=== PATIENT | female | born 1930 | race Caucasian/White ===

== ENCOUNTER → 2016-08-04 10:30 | Outpatient (CLI) | payer MEDICARE, OTHER ==
[2016-06-29 12:41] VITALS: BMI 28.3
[~2016-08-04 10:30] MED LIST: ACTONEL150 MG; ATROVENT 0.03%30 ML NS; CARDIZEM CD240 MG PO; CARDIZEM CD360 MG; ELIQUIS2.5 MG PO; HYDROCODON-ACE1 EAC7 PO; LANTUS INSULIN10 ML SC; LEVAQUIN250 MG PO; LEVOTHYROXINE100 MCG; LIPITOR80 MG PO; NEURONTIN 300300 MG PO; NEURONTIN600 MG; NORMODYNE / TR100 MG PO; NORVASC2.5 MG PO; NORVASC5 MG PO; NOVOLOG100 U/M1 SC; OS-CAL500 MG PO; OYSCO 500+D TAB1 TAB PO; PEPCID20 MG PO; SYNTHROID100 MCG PO; TRANDATE100 MG PO
== END | disposition home or self-care (01) ==
LOC: D.US 10:30
DX: N39.0 Urinary tract infection, site not specified (principal)

== ENCOUNTER 2016-08-06 12:25 | Emergency (ER) | payer MEDICARE, OTHER ==
[2016-06-29 12:41] VITALS: BMI 28.3
[2016-08-06 12:56] LABS: BASOPHILS 0.5 % (0.0-2.0); EOSINOPHILS 2.7 % (0-7); HEMATOCRIT 33.1 % (36.0-48.0); HEMOGLOBIN 10.3 g/dL (12-16); IMMATURE GRANULOCYTES 0.1 % (0-5); LYMPHOCYTES 26.9 % (15-50); MCHC 31.1 g/dL (31.0-37.0); MCV 99.7 fL (80.0-100.0); MEAN PLATELET VOLUME 10.1 fL (7.4-10.4); MONOCYTES 9.6 % (2-11); NEUTROPHILS 60.2 % (40-80); PLATELET COUNT 201 10x3/uL (130-400); RBC 3.32 10x6/uL (4.00-5.40); WBC 7.4 10x3/uL (4.8-10.8)
[2016-08-06 13:07] LABS: ALBUMIN 3.3 g/dL (3.4-5.0); ANION GAP 16.1 mmol/L (8-16); BILIRUBIN - TOTAL 0.6 mg/dL (0.2-1.3); CALCIUM 8.7 mg/dL (8.5-10.1); CARBON DIOXIDE 27.5 mmol/L (21.0-32.0); CREATININE - SERUM 5.3 mg/dL (0.6-1.3); POTASSIUM - SERUM 3.6 mmol/L (3.5-5.1); PROTEIN - SERUM 6.8 g/dL (6.4-8.2)
== END 2016-08-06 13:40 | disposition home or self-care (01) ==
LOC: D.ER 12:25
PROVIDERS: Emergency Medicine
DX: R42 Dizziness and giddiness (principal); R55 Syncope and collapse; E11.9 Type 2 diabetes mellitus without complications; I10 Essential (primary) hypertension

== ENCOUNTER 2016-11-16 17:38 | Inpatient (IN) | payer MEDICARE, OTHER ==
[~2016-11-16] VITALS: Ht 160 cm; Wt 58.5 kg
[2016-11-16 19:35] LABS: BASOPHILS 0.2 % (0-2); EOSINOPHILS 0.1 % (0-7); HEMATOCRIT 28.3 % (36.0-48.0); HEMOGLOBIN 9.3 g/dL (12-16); IMMATURE GRANULOCYTES 0.1 % (0-5); LYMPHOCYTES 14.2 % (15-50); MCH 30.3 pg (26.0-34.0); MCHC 32.9 g/dL (31.0-37.0); MCV 92.2 fL (80.0-100.0); MEAN PLATELET VOLUME 9.5 fL (7.4-10.4); MONOCYTES 6.9 % (2-11); NEUTROPHILS 78.5 % (40-80); PLATELET COUNT 171 10x3/uL (130-400); RBC 3.07 10x6/uL (4.00-5.40); RDW 14.1 % (11.5-14.5); WBC 9.1 10x3/uL (4.8-10.8)
[2016-11-16 19:56] LABS: ALBUMIN 3.4 g/dL (3.4-5.0); ANION GAP 14.1 mmol/L (8-16); BILIRUBIN - TOTAL 1.01 mg/dL (0.2-1.3); CARBON DIOXIDE 30.8 mmol/L (21.0-32.0); CREATININE - SERUM 3.5 mg/dL (0.6-1.3); POTASSIUM - SERUM 3.9 mmol/L (3.5-5.1); PROTEIN - SERUM 7.1 g/dL (6.4-8.2)
[2016-11-16 20:09] LABS: APPEARANCE CLEAR (CLEAR); BILIRUBIN NEGATIVE (NEGATIVE); COLOR YELLOW (YELLOW); GLUCOSE NEGATIVE (NEGATIVE); KETONE NEGATIVE (NEGATIVE); LEUKOCYTE ESTERASE NEGATIVE (NEGATIVE); NITRITE NEGATIVE (NEGATIVE); PROTEIN NEGATIVE (NEGATIVE); SPECIFIC GRAVITY 1.015 (1.005-1.020); UROBILINOGEN NORMAL (NORMAL)
[2016-11-16 21:10] LABS: APTT 27.6 SECONDS (22.8-39.4); INR 1.04 (0.85-1.17); PROTIME 13.4 SECONDS (11.6-15.0)
[2016-11-16 23:42] VITALS: BP 126/48; BMI 23.0
--- NOTE | 2016-11-17 00:46 | NUR ---
PATIENT IS RESTING IN BED AND DENIES NEEDS AT THIS TIME. BED IN LOWEST POSITION, CALL LIGHT WITHIN REACH, AND KAILEY ALARM IS ON AND FUNCTIONING PROPERLY. ENCOURAGED THE PATIENT TO CALL IF SHE HAS FURTHER NEEDS.
[2016-11-17 04:00] VITALS: BP 117/41
--- NOTE | 2016-11-17 08:00 | NUR ---
AWAKE AND ALERT AT THIS TIME. DENIES PAIN. IV TO RIGHT FOREARM PATENT. CALL LIGHT IN REACH AND KAILEY MAT ALARM IN USE. WILL CONTINUE WITH PLAN OF CARE.
[2016-11-17 08:25] VITALS: BP 118/39
[2016-11-17 10:20] LABS: BASOPHILS 0.3 % (0-2); EOSINOPHILS 1.8 % (0-7); HEMATOCRIT 25.2 % (36.0-48.0); HEMOGLOBIN 8.2 g/dL (12-16); IMMATURE GRANULOCYTES 0.1 % (0-5); LYMPHOCYTES 23.3 % (15-50); MCH 30.5 pg (26.0-34.0); MCHC 32.5 g/dL (31.0-37.0); MCV 93.7 fL (80.0-100.0); MEAN PLATELET VOLUME 9.3 fL (7.4-10.4); MONOCYTES 10.5 % (2-11); PLATELET COUNT 147 10x3/uL (130-400); RBC 2.69 10x6/uL (4.00-5.40); RDW 14.3 % (11.5-14.5); WBC 7.4 10x3/uL (4.8-10.8)
[2016-11-17 10:36] LABS: ALBUMIN 2.9 g/dL (3.4-5.0); ANION GAP 10.3 mmol/L (8-16); CALCIUM 8.5 mg/dL (8.5-10.1); CARBON DIOXIDE 31.5 mmol/L (21.0-32.0); CREATININE - SERUM 4.2 mg/dL (0.6-1.3); POTASSIUM - SERUM 3.8 mmol/L (3.5-5.1); PROTEIN - SERUM 5.8 g/dL (6.4-8.2)
--- NOTE | 2016-11-17 11:46 | NUR ---
SCHEDULED MEDICATIONS ADMINISTERED AT THIS TIME. PT DENIES PAIN. CALL LIGHT IN REACH, WILL CONTINUE WITH PLAN OF CARE.
--- NOTE | 2016-11-17 12:29 | NUR ---
BLOOD SUGAR 211. PT TREATED WITH 4 UNITS OF HUMALOG PER SLIDING SCALE.
[2016-11-17 12:45] VITALS: BP 128/46
[2016-11-17 13:56] VITALS: Ht 160 cm; Wt 58.5 kg
--- NOTE | 2016-11-17 15:52 | NUR ---
Patient Name: THUAN TAPIA Admission Status: ER Accout number: [id number] Admission Date: 11-16-2016 : 1932 Admission Diagnosis: Attending: RAINE Current LOS: 1 Anticipated DC Date: 11-20-2016 Planned Disposition: Home Primary Insurance: MEDICARE A & B Discharge Planning Comments: CM MET WITH PATIENT REGARDING D/C NEEDS AND PLANS. PATIENT STATED SHE LIVES ALONE AND HER NEPHEW (ANITA) LIVES NEXT DOOR. PATIENT STATED SHE HAS NO STEPS OR STAIRS AT HER HOME. PATIENT STATED SHE IS INDEPENDENT WITH HER CARE AND HAS A WALKER, SHOWER CHAIR, AND BS COMMODE AT HOME. PATIENTS PCP IS DR. JIM HOBBS AND PHARMACY IS [facility]. PATIENT STATED SHE DOES NOT WANT HOME HEALTH AT THIS TIME. CM WILL CONTINUE TO FOLLOW PATIENT WITH D/C NEEDS AND PLANS. PCP DR. JIM HOBBS [facility] [phone] ANITA LOVELACE (NEPHEW) Yarn Worker: Vickie Moralez Is the patient Alert and Oriented? Yes 0 * How many steps to enter\exit or inside your home? 0 0 * PCP DR. JIM HOBBS 0 * Pharmacy [facility] 0 * Preadmission Environment Home Alone 0 * ADLs Independent 0 * Equipment Bedside Commode Shower Chair Walker 0 * List name and contact numbers for known caregivers / representatives who currently or will assist patient after discharge: GABE LOVELACE (NEPHEW) 0 * Community resources currently utilized None 0 * Additional services required to return to the preadmission environment? Yes 0 * Can the patient safely return to the preadmission environment? Yes 0 * Has this patient been hospitalized within the prior 30 days at any hospital? No 0 Grand Total: 0
--- NOTE | 2016-11-17 16:08 | NUR ---
Rehab Note- Acute Rehab Prescreen order received. Awaiting PT eval at this time. Have spoken with NAYAN Johnston- the patient lives alone and tripped over her dog causing the fall with fractured shoulder. Will follow the patient at this time. Thank you for this referral! Laura Tavarez RN Clinical Liaison, [facility] Rehab/[place]
[2016-11-17 16:41] VITALS: BP 109/39
[2016-11-17 19:00] VITALS: BP 122/43
--- NOTE | 2016-11-17 20:03 | NUR ---
PATIENT RESTING WITH EYES CLOSED. NO VISIBLE SIGNS OF DISTRESS. BED IN LOWEST POSITION AND CALL LIGHT WITHIN REACH.
--- NOTE | 2016-11-17 20:46 | NUR ---
PATIENT RESTING IN BED WITH SLING ON AND DENIES NEEDS AT THIS TIME. BED IN LOWEST POSITION, CALL LIGHT WITHIN REACH, AND KAILEY ALARM ON. ENCOURAGED THE PATIENT TO CALL IF SHE HAS FURTHER NEEDS.
[2016-11-18 04:00] VITALS: BP 142/49
[2016-11-18 06:14] LABS: BASOPHILS 0.3 % (0-2); EOSINOPHILS 3.1 % (0-7); HEMATOCRIT 25.6 % (36.0-48.0); HEMOGLOBIN 8.2 g/dL (12-16); IMMATURE GRANULOCYTES 0.3 % (0-5); LYMPHOCYTES 25.5 % (15-50); MCH 30.4 pg (26.0-34.0); MCV 94.8 fL (80.0-100.0); MEAN PLATELET VOLUME 10.4 fL (7.4-10.4); MONOCYTES 8.4 % (2-11); NEUTROPHILS 62.4 % (40-80); PLATELET COUNT 176 10x3/uL (130-400); RDW 14.4 % (11.5-14.5)
[2016-11-18 06:22] LABS: WBC 9.3 10x3/uL (4.8-10.8)
--- NOTE | 2016-11-18 06:38 | NUR ---
GAVE PATIENT ORANGE JUICE FOR BLOOD SUGAR OF 62.
[2016-11-18 06:41] LABS: ALBUMIN 2.8 g/dL (3.4-5.0); ANION GAP 8.2 mmol/L (8-16); BILIRUBIN - TOTAL 0.83 mg/dL (0.2-1.3); CALCIUM 8.9 mg/dL (8.5-10.1); CARBON DIOXIDE 33.3 mmol/L (21.0-32.0); POTASSIUM - SERUM 3.5 mmol/L (3.5-5.1)
[2016-11-18 06:46] LABS: CREATININE - SERUM 5.7 mg/dL (0.6-1.3)
--- NOTE | 2016-11-18 07:27 | NUR ---
RECEIVING BED BATH AT THIS TIME. LEF ARM REMAINS IN SLING. LEFT AV FISTULA WITH GOOD BRUIT AND THRILL PRESENT. IV TO RIGHT FOREARM SALINE LOCKED AND PATENT. SCD'S OFF AND SKIN TO BLE WNL. KAILEY MAT ALARM IN USE FOR FALL PRECAUTIONS. CALL LIGHT IN REACH, WILL CONTINUE WITH PLAN OF CARE.
[2016-11-18 08:04] VITALS: BP 151/54
--- NOTE | 2016-11-18 09:25 | NUR ---
IV access-20 gauge inserted in right hand for access. Terra Eden RN
[2016-11-18 12:01] VITALS: BP 131/51
[2016-11-18 15:35] VITALS: BP 152/52
--- NOTE | 2016-11-18 18:50 | NUR ---
TAKEN TO DIALYSIS AT THIS TIME.
--- NOTE | 2016-11-18 22:10 | NUR ---
PATIENT RETURNS TO ROOM FROM DIALYSIS. VS TAKEN SLING TO LEFT ARM DRESSING AND BRUISE TO LEFT SHOULDER AND ARM. PT STATES BROKE UPPER ARM FROM A FALL AT HOME. RT FOREARM SALINE LOCK NOTED RESERVING LEFT ARM FISTULA NOTED WITH STRONG THRILL.O2 ON 2 L/M PER NC. FSBS-197. FD2 UNITS HUMALOG INSULIN GIVEN SUBC PER S/S.
[2016-11-19] VITALS: BP 99/52
--- NOTE | 2016-11-19 | NUR ---
NPO AT THIS TIME FOR SURGERY IN AM.KAILEY BED ALARM MAT ON. SR UP X3 CALL LIGHT WITHIN REACH.
--- NOTE | 2016-11-19 02:02 | NUR ---
PERIODS OF CONFUSION AT TIMES PT THINKS SHE NEEDS TO GO TO HER DESK. INFORMED PATIENT TIME OF DAY AND PLACE. PATIENT THINKS IT IS DAYTIME.
--- NOTE | 2016-11-19 02:03 | NUR ---
EYES CLOSED RESPIRATIONS WITH EASE AND UNLABORED.
--- NOTE | 2016-11-19 03:32 | NUR ---
C/O PAIN IN FX AREA SITE RATES PAIN LEVEL #8. BUPRENEX 0.1MG IVP GIVEN FOR PAIN CONTROL.
[2016-11-19 04:00] VITALS: BP 132/55
[2016-11-19 05:34] LABS: BASOPHILS 0.2 % (0-2); HEMOGLOBIN 8.1 g/dL (12-16); IMMATURE GRANULOCYTES 0.3 % (0-5); MCH 30.1 pg (26.0-34.0); MCHC 32.4 g/dL (31.0-37.0); MCV 92.9 fL (80.0-100.0); MEAN PLATELET VOLUME 10.2 fL (7.4-10.4); MONOCYTES 8.7 % (2-11); NEUTROPHILS 65.8 % (40-80); PLATELET COUNT 183 10x3/uL (130-400); RBC 2.69 10x6/uL (4.00-5.40); RDW 14.1 % (11.5-14.5); WBC 9.6 10x3/uL (4.8-10.8)
[2016-11-19 06:11] LABS: ALBUMIN 2.7 g/dL (3.4-5.0); ANION GAP 8.3 mmol/L (8-16); BILIRUBIN - TOTAL 0.59 mg/dL (0.2-1.3); CARBON DIOXIDE 33.3 mmol/L (21.0-32.0); POTASSIUM - SERUM 3.6 mmol/L (3.5-5.1)
[2016-11-19 06:21] LABS: CREATININE - SERUM 4.2 mg/dL (0.6-1.3)
--- NOTE | 2016-11-19 06:37 | NUR ---
GLUCOSE FROM WHL=089. NO COVERAGE NEEDED.
--- NOTE | 2016-11-19 07:25 | NUR ---
PATIENT RECEIVED ALERT IN LOW RICHARDSON POSITION. RESPIRATIONS EVEN AND UNLABORED. SIDE RAILS UP X2. BED IN LOW POSITION. CALL LIGHT IN REACH. KAILEY ALARM ON.
[2016-11-19 07:58] VITALS: BP 111/58
--- NOTE | 2016-11-19 08:40 | NUR ---
PATIENT ALERT IN BED RESTING QUIETLY. RESPIRATIONS EVEN AND UNLABORED. SCHEDULED MEDICATION ADMINISTERED. SIDE RAILS UP X3. BED IN LOW POSITION. CALL LIGHT IN REACH. KAILEY ALARM ON.
--- NOTE | 2016-11-19 11:18 | NUR ---
PATIENT RESTING QUIETLY WITH EYES CLOSED. RESPIRATIONS EVEN AND UNLABORED. WAKES EASY. ACCU CHECK 119. NO INSULIN PER SLIDING SCALE. SIDE RAILS UP X3. BED IN LOW POSITION. CALL LIGHT IN REACH.
[2016-11-19 12:34] VITALS: BP 122/60
--- NOTE | 2016-11-19 14:45 | NUR ---
PRE PROCEDURE MEDICATION ADMINISTERED WITH SIP OF WATER. WELL TOLERATED.
--- NOTE | 2016-11-19 16:00 | NUR ---
PATIENT OFF FLOOR TO SURGERY VIA BED.
[2016-11-19 16:03] VITALS: BP 146/53
--- NOTE | 2016-11-19 19:00 | NUR ---
BEDSIDE REPORT RECEIVED. PT JUST RETURNING FROM SURGERY. VITALS STABLE. DRESSING ON LEFT ARM CLEAN AND DRY. SLING IN USE ON LEFT ARM. STARTED IV FLUIDS PER ORDER.
[2016-11-19 19:21] VITALS: BP 159/64
--- NOTE | 2016-11-19 21:45 | NUR ---
HS MEDICATIONS GIVEN. WILL CONTINUE TO MONITOR FOR NEEDS.
--- NOTE | 2016-11-19 22:00 | NUR ---
PLACED ICE PACK ON LEFT ARM PER ORDER.
--- NOTE | 2016-11-20 00:08 | NUR ---
ASSISTED PT TO USE BEDPAN...URINATED APPROX 50 ML YELLOW URINE.
[2016-11-20 04:00] VITALS: BP 150/58
[2016-11-20 06:31] LABS: BASOPHILS 0.2 % (0-2); EOSINOPHILS 2.4 % (0-7); HEMATOCRIT 24.5 % (36.0-48.0); IMMATURE GRANULOCYTES 0.2 % (0-5); LYMPHOCYTES 14.6 % (15-50); MCH 30.3 pg (26.0-34.0); MCHC 32.7 g/dL (31.0-37.0); MCV 92.8 fL (80.0-100.0); MEAN PLATELET VOLUME 10.3 fL (7.4-10.4); MONOCYTES 10.3 % (2-11); NEUTROPHILS 72.3 % (40-80); PLATELET COUNT 198 10x3/uL (130-400); RBC 2.64 10x6/uL (4.00-5.40); RDW 14.4 % (11.5-14.5); WBC 8.9 10x3/uL (4.8-10.8)
[2016-11-20 07:03] LABS: ALBUMIN 2.6 g/dL (3.4-5.0); BILIRUBIN - TOTAL 0.7 mg/dL (0.2-1.3); CARBON DIOXIDE 26.8 mmol/L (21.0-32.0); CREATININE - SERUM 4.9 mg/dL (0.6-1.3); POTASSIUM - SERUM 3.8 mmol/L (3.5-5.1); PROTEIN - SERUM 5.2 g/dL (6.4-8.2)
--- NOTE | 2016-11-20 07:20 | NUR ---
PATIENT RECEIVED ALERT IN BED. NO SIGNS OF DISTRESS NOTED. REPOSITIONED FOR COMFORT. SIDE RAILS UP X3. BED IN LOW POSITION. CALL LIGHT IN REACH. KAILEY ALARM ON.
[2016-11-20 07:50] VITALS: BP 153/56
--- NOTE | 2016-11-20 08:19 | NUR ---
PATIENT INCONTINENT OF URINE. LINEN CHANGE COMPLETE. REPOSITIONED IN BED FOR COMFORT. SCHEDULED MEDICATION ADMINISTERED. SIDE RAILS UP X3. BED IN LOW POSITION. CALL LIGHT IN REACH. KAILEY ALARM ON.
--- NOTE | 2016-11-20 11:04 | NUR ---
ACCU CHECK 209. INSULIN PER SLIDING SCALE. DENIES NEEDS. SIDE RAILS UP X3. BED IN LOW POSITION. CALL LIGHT IN REACH. KAILEY ALARM ON.
--- NOTE | 2016-11-20 11:39 | OP ---
PATIENT NAME: THUAN TAPIA MEDICAL RECORD: [id number] :32 LOCATION:[id number] ADMISSION DATE:11/16/16 SURGEON: MANDEEP LANE MD DATE OF OPERATION: 11/19/2016 Orthopedic Surgery Operative Note PREOPERATIVE DIAGNOSIS: Comminuted proximal humerus fracture. POSTOPERATIVE DIAGNOSIS: Comminuted proximal humerus fracture. PROCEDURE: Open reduction internal fixation of comminuted proximal humerus fracture. SURGEON: Mandeep Lane MD. ANESTHESIA: General. INTRAOPERATIVE COMPLICATIONS: None. SUMMARY OF PATHOLOGIC FINDINGS: Consistent with the preoperative diagnosis. The patient had actually somewhat of a valgus displacement with a fracture into the tuberosities. OPERATIVE SUMMARY IN DETAIL: After obtaining the appropriate preoperative orthopedic surgery consent as well as anesthetic consultation, evaluation, and clearance, the patient was brought to the operating room and placed on the operating table in supine position. After general laryngeal mask was administered, the patient's left upper extremity and shoulder were then prepped and draped in a routine sterile fashion. This is all over the left shoulder. Care was taken to avoid the patient's shunt. The arm was held in Trimano arm holding device. A deltopectoral incision was created. The patient had a very large cephalic vein, which was protected throughout the case and not violated. Deltoid was retracted over the broken humeral head and the conjoined tendon was gently retracted medially. A reduction maneuver was performed under fluoroscopic evaluation and the Sha VariAx plate was utilized. Serial and sequential drill and fill fashion using combination of both compression, cancellous, cortical, and locking screws. The reduction resulted in excellent anatomic restorationism; however, the posterior aspect of the greater tuberosity was a little unstable. Therefore, it was tied in a [id number] fashion through the superior pin holes in the plate using FiberWire as was the anterior aspect of the supraspinatus tendon for extra added stability. The wound was copiously irrigated and closed with #1 Vicryl followed by skin maximo. Sterile dressings were applied. The patient was awakened and taken to recovery room in stable condition. All final needle and sponge counts were correct. TRANSINT:[id number] Voice Confirmation ID: [id number] DOCUMENT ID: [id number] OPERATIVE REPORT [id number] THUAN TAPIA MD, MANDEEP KONG at 1139 CC: [id number] DICTATION DATE: 11/19/16 1851 BLUEPRINT ENGINEER: 11/20/16 0154 ADM IN [facility] [address] [id number]
--- NOTE | 2016-11-20 12:02 | NUR ---
CM REC. CALL FROM [facility] ([facility]) / SHE STATED PATIENT WILL BE ADMITTED WEDNESDAY. PATIENT AWARE
[2016-11-20 12:10] VITALS: BP 140/50
--- NOTE | 2016-11-20 13:55 | NUR ---
PATIENT REPOSITONED IN BED. INCONTINENT OF URINE. PARTIAL LINEN CHANGE COMPLETE. IV TO RIGHT HAND PATENT. NO REDNESS OR INFLAMMATION NOTED. IV ABX INITIATED PER ORDER. SIDE RAILS UP X3. BED IN LOW POSITION. CALL LIGHT IN REACH. KAILEY ALARM ON.
--- NOTE | 2016-11-20 13:56 | NUR ---
NUTRITION MONITORING & EVAL CHART REVIEWED. PT CURRENTLY SLEEPING. 75 TO 100% INTAKE RECENT MEALS. RD FOLLOWING
--- NOTE | 2016-11-20 15:15 | NUR ---
PATIENT TRANSFERRED OFF FLOOR TO DIALYSIS VIA BED
--- NOTE | 2016-11-20 15:17 | NUR ---
Patient meets criteria for inpatient criteria and has agreed to participate in the program so she can regain her strength and return home at her PLOF. She will be admitted Wednesday on POD #3. The CM and patient have been made aware. Minoo Skelton RN Clinical Liaison, Rehab
--- NOTE | 2016-11-20 16:47 | NUR ---
DIALYSIS COORDINATOR: PATHWAYS: [facility] Wed/Wed/Wed @ 10:15am. Medical records forwarded to home unit. SOPHIE LEON
--- NOTE | 2016-11-20 18:20 | NUR ---
PATIENT BACK TO ROOM FROM DIALYSIS VIA BED.
--- NOTE | 2016-11-20 19:26 | NUR ---
ASSISTED PATIENT BACK TO BED FROM BATHROOM WITH DORIAN DYKES. ALEX C/O 5/10 PAIN IN HER LEFT SHOULDER. PATIENT IS RESTING IN BED AND DENIES OTHER NEEDS AT THIS TIME. BED IN LOWEST POSITION, CALL LIGHT WITHIN REACH, AND BED ALARM ON. ENCOURAGED THE PATIENT TO CALL IF SHE HAS FURTHER NEEDS.
[2016-11-20 20:00] VITALS: BP 160/70
--- NOTE | 2016-11-20 20:24 | NUR ---
PATIENT RESTING IN BED WITH NO SIGNS OF DISTRESS AND DENIES NEEDS AT THIS TIME. CHECKED PATIENT'S BLOOD GLUCOSE, RESULTS 223. NOTIFIED PORSHA ESTRADA OF RESULTS. BED IN LOWEST POSITION AND CALL LIGHT WITHIN REACH. ENCOURAGED THE PATIENT TO CALL IF SHE HAS NEEDS.
[2016-11-21] VITALS: BP 132/47
--- NOTE | 2016-11-21 00:20 | NUR ---
20 PIV D/C WITH CATH INTACT. NEW 20G PIV INITIATED IN RIGHT FOREARM AND SL AFTER IV ABX. NO NEEDS NOTED AT THIS TIME.
[2016-11-21 04:00] VITALS: BP 136/55
[2016-11-21 05:12] LABS: BASOPHILS 0.2 % (0-2); EOSINOPHILS 2.1 % (0-7); IMMATURE GRANULOCYTES 0.2 % (0-5); LYMPHOCYTES 22.5 % (15-50); MCH 30.3 pg (26.0-34.0); MEAN PLATELET VOLUME 9.8 fL (7.4-10.4); MONOCYTES 11.6 % (2-11); NEUTROPHILS 63.4 % (40-80); PLATELET COUNT 173 10x3/uL (130-400); RDW 15.3 % (11.5-14.5); WBC 8.5 10x3/uL (4.8-10.8)
[2016-11-21 05:14] LABS: HEMATOCRIT 33.2 % (36.0-48.0); HEMOGLOBIN 11.3 g/dL (12-16); RBC 3.73 10x6/uL (4.00-5.40)
[2016-11-21 05:36] LABS: ALBUMIN 2.5 g/dL (3.4-5.0); BILIRUBIN - TOTAL 0.8 mg/dL (0.2-1.3); CALCIUM 8.5 mg/dL (8.5-10.1); CREATININE - SERUM 3.8 mg/dL (0.6-1.3); PROTEIN - SERUM 5.8 g/dL (6.4-8.2)
--- NOTE | 2016-11-21 07:10 | NUR ---
REPORT RECEIVED FROM BARBED WIRE MACHINE OPERATOR NURSE. CALL LIGHT IN REACH.
--- NOTE | 2016-11-21 09:42 | NUR ---
ASSESSMENT COMPLETED. AM MEDS ADMINISTERED. DENIES PAIN. ALARM ON. CALL LIGHT IN REACH. WILL CONTINUE WITH PLAN OF CARE.
[2016-11-21 09:55] VITALS: BP 133/61
--- NOTE | 2016-11-21 11:58 | NUR ---
ASSISTED TO BR PER PORSHA DYKES.
--- NOTE | 2016-11-21 12:05 | NUR ---
HELPED PATIENT BACK TO BED.
--- NOTE | 2016-11-21 12:26 | NUR ---
FSBS 173 SO HUMALOG 2 UNITS SUBQ TO RIGHT ARM. STATES PAIN HAS DECREASED TO A 3.
[2016-11-21 12:31] VITALS: BP 143/58
--- NOTE | 2016-11-21 14:33 | NUR ---
ANCEF IVPB PER ORDER. CALL LIGHT IN REACH.
--- NOTE | 2016-11-21 14:33 | NUR ---
IS GIVEN TO PATIENT PER RT. RETURN DEMONSTRATION.
--- NOTE | 2016-11-21 14:40 | NUR ---
PT AOX4 RESP EVEN AND NONLABORED PT HERE LEFT HUMEROUS FRACTURE REPAIR. IV TO RIGHT FOREARM PATENT AND INTACT PT DENIES NEEDS AT THIS TIME SRX2 BED AT LOWEST SETTING CALL LIGHT WITHIN REACH WILL CONTINUE TO MONITOR
--- NOTE | 2016-11-21 16:41 | NUR ---
HUMALOG 2 UNITS SUBQ FOR FSBS OF 173.
[2016-11-21 16:50] VITALS: BP 141/62
--- NOTE | 2016-11-21 18:55 | NUR ---
DRSG TO LEFT SHOULDER CHANGED PER ORDER. ICE PACK REFILLED AND PLACED TO SHOULDER. NO CHANGES IN INITIAL ASSESSMENT. KAILEY MAT ALARM ON. STILL REFUSES SCDs. CALL LIGHT IN REACH. WILL CONTINUE WITH PLAN OF CARE.
[2016-11-21 19:00] VITALS: BP 147/53
--- NOTE | 2016-11-21 22:10 | NUR ---
PT C/O LEFT SHOULDER PAIN WAS MEDICATED WITH NORCO PER ORDERS FOR PAIN. WILL CONINUE TO OBSERVE FOR NEEDS. C/L IN REACH AT BEDSIDE.
[2016-11-22] VITALS: BP 137/53
--- NOTE | 2016-11-22 02:49 | NUR ---
PT IS ASLEEP WITH THE COVERS OVER HER HEAD AND O2 IN PLACE. SHE IS NOT IN ANY DISTRESS. THE BED IS LOW, RAILS UP X'S 2 WITH THE CALL LIGHT AT HAND.
[2016-11-22 04:00] VITALS: BP 156/50
--- NOTE | 2016-11-22 05:58 | NUR ---
PT WAS MEDICATED AT THIS TIME FOR C/O PAIN RATING 8/10 ON PAIN SCALE TO LEFT SHOULDER. C/L IN REACH AT BEDSIDE.
[2016-11-22 06:40] LABS: BASOPHILS 0.1 % (0-2); EOSINOPHILS 4.7 % (0-7); HEMATOCRIT 33.2 % (36.0-48.0); IMMATURE GRANULOCYTES 0.2 % (0-5); LYMPHOCYTES 17.8 % (15-50); MCH 30.1 pg (26.0-34.0); MCHC 33.1 g/dL (31.0-37.0); MCV 90.7 fL (80.0-100.0); MEAN PLATELET VOLUME 9.7 fL (7.4-10.4); NEUTROPHILS 68.2 % (40-80); PLATELET COUNT 188 10x3/uL (130-400); RBC 3.66 10x6/uL (4.00-5.40); RDW 15.4 % (11.5-14.5); WBC 8.7 10x3/uL (4.8-10.8)
[2016-11-22 07:00] VITALS: BP 130/52
--- NOTE | 2016-11-22 07:00 | NUR ---
REPORT RECEIVED FROM MARKETING GRAPHICS SPECIALIST NURSE. CALL LIGHT IN REACH.
[2016-11-22 07:12] LABS: ALBUMIN 2.5 g/dL (3.4-5.0); ANION GAP 12.1 mmol/L (8-16); BILIRUBIN - TOTAL 0.54 mg/dL (0.2-1.3); CALCIUM 9.1 mg/dL (8.5-10.1); CARBON DIOXIDE 29.4 mmol/L (21.0-32.0); PROTEIN - SERUM 6.1 g/dL (6.4-8.2)
[2016-11-22 07:13] LABS: CREATININE - SERUM 5.3 mg/dL (0.6-1.3); POTASSIUM - SERUM 3.5 mmol/L (3.5-5.1)
--- NOTE | 2016-11-22 07:40 | NUR ---
PATIENT IN MID RICHARDSON POSITION RESTING WITH EYES CLOSED. RESPIRATIONS EVEN AND UNLABORED. SIDE RAILS UP X2. BED IN LOW POSITION. CALL LIGHT IN REACH.
--- NOTE | 2016-11-22 08:00 | NUR ---
ASSESSMENT COMPELTED. REFUSES SCDs. KAILEY MAT ALARM IS ON. CALL LIGHT IN REACH. WILL CONITNUE WITH PLAN OF CARE.
[2016-11-22] MEDS ORDERED: PROCRIT/EP10000 UNIT SC (09:38)
--- NOTE | 2016-11-22 10:11 | NUR ---
DRSG TO LEFT SHOULDER CHANGED PER STUDENT NURSE.
--- NOTE | 2016-11-22 10:14 | CN ---
PATIENT NAME:THUAN TAPIA MEDICAL RECORD: [id number] : 32 LOCATION:[id number] ADMIT DATE: 11/16/16 ACCOUNT: [id number] CONSULTING PHYSICIAN: HAILEE LANZA MD REFERRING PHYSICIAN: MODE RAMÍREZ MD DATE OF CONSULTATION: 11/17/2016 HISTORY OF PRESENT ILLNESS: An 86-year-old lady with no known history of coronary artery disease. 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 She has a history of hypertension, dyslipidemia, admitted after accident with a dog, had a fractured left shoulder, we are asked to see preoperatively from a cardiovascular standpoint, she really has no symptomatology, no dyspnea on exertion, stays quite active today, would walk her dog, etc. without difficulty. Easily takes care of all her ADLs. PAST MEDICAL HISTORY: 1. History of diabetes mellitus. 2. Chronic renal insufficiency. 3. Hypertension. 4. Hyperlipidemia. 5. Hypothyroidism, on replacement. 6. Gastroesophageal reflux disease. MEDICATIONS: Typically include insulin per scale, Synthroid 100 mcg q. day, Pepcid 20 mg p.o. q. day, [place] 5/325 q. day, amlodipine 2.5 q. day, atorvastatin 80 q. day, Neurontin 300 q. day, and Eliquis 2.5 q. day. ALLERGIES: SULFA. SOCIAL HISTORY: Lives here in [place]. Bree is a nonsmoker. Easily takes care of all her ADLs. Does try to walk on a regular basis. PHYSICAL EXAMINATION: GENERAL: A pleasant female, in no acute distress, appears stated age. VITAL SIGNS: Blood pressure 128/46, pulse 71 and regular. HEENT: Normocephalic and atraumatic. NECK: No JVD or bruit. HEART: Regular. II/ systolic ejection murmur. LUNGS: Good air excursion. ABDOMEN: Soft and nontender. EXTREMITIES: Pulses 2+ with no edema. NEUROLOGIC: Grossly intact. IMPRESSION: No contraindication to planned procedure from a cardiovascular standpoint. LV function normal previously, suspect elevated BNP secondary to age and renal insufficiency. TRANSINT:[id number] Voice Confirmation ID: [id number] DOCUMENT ID: [id number] CONSULT REPORT [id number] TAPIATHUAN Juarez HAILEE LANZA MD at 1014 CC: [id number] DICTATION DATE: 11/17/16 1445 BOARD SAW RUNNER: 11/17/16 2228 ADM IN [facility] [address] [id number]
--- NOTE | 2016-11-22 11:19 | NUR ---
CAM PO WITH AM MEDS ADMINISTERED. FSBS 159 SO 2 UNITS HUMALOG SUBQ TO RIGHT ARM. CALL LIGHT IN REACH.
[2016-11-22 12:32] VITALS: BP 165/64
--- NOTE | 2016-11-22 13:18 | NUR ---
REPORT GIVEN TO PORSHA DYKES, IN REHAB.
--- NOTE | 2016-11-22 13:35 | NUR ---
DC'D TO REHAB, ROOM 1110, VIA .
== END 2016-11-22 13:35 | DRG 492 ==
LOC: D.ER 17:38 → D.MS 22:43
PROVIDERS: Emergency Medicine; Family Medicine Adult Medicine; Physician Assistant Medical; ADMIT Internal Medicine
PROC: 0PSD04Z Reposition Left Humeral Head with Internal Fixation Device, Open Approach (ICD-10-PCS; principal; 2016-11-18)
PROC: 5A1D60Z (ICD-10-PCS; principal; 2016-11-18)
DX: S42.292A Other displaced fracture of upper end of left humerus, initial encounter for closed fracture (principal); N18.6 End stage renal disease; I12.0 Hypertensive chronic kidney disease with stage 5 chronic kidney disease or end stage renal disease; S42.142A Displaced fracture of glenoid cavity of scapula, left shoulder, initial encounter for closed fracture; E11.22 Type 2 diabetes mellitus with diabetic chronic kidney disease; W01.0XXA Fall on same level from slipping, tripping and stumbling without subsequent striking against object, initial encounter; D63.1 Anemia in chronic kidney disease; Z99.2 Dependence on renal dialysis; E03.9 Hypothyroidism, unspecified; I25.10 Atherosclerotic heart disease of native coronary artery without angina pectoris; E78.5 Hyperlipidemia, unspecified; E11.65 Type 2 diabetes mellitus with hyperglycemia; E11.40 Type 2 diabetes mellitus with diabetic neuropathy, unspecified; K21.9 Gastro-esophageal reflux disease without esophagitis

== ENCOUNTER 2016-11-22 13:43 | Inpatient (IN) | payer MEDICARE, OTHER ==
[~2016-11-22] VITALS: Ht 160 cm; Wt 59.6 kg
[~2016-11-22 13:43] MED LIST changes: +PROCRIT/EP10000 UNIT SC
[2016-11-22 13:54] VITALS: BP 132/110
--- NOTE | 2016-11-22 14:23 | NUR ---
PT WAS ADMITTED TO THE REHAB UNIT VIA WHEELCHAIR AND HOSPITAL STAFF FROM UPSTAIRS. SHE IS ALERT AND ORIENTED X 3. HER LEFT ARM IS IN A SLING DEVICE. ICE BAG WAS BROUGHT WITH HER AND SHE APPLIES IT TO THE SHOULDER. VITAL SIGNS; TEMP. 98.5, P 97, RESP 14, B/P 132/110, 02SAT. 98%. PT DENIES ANY PAIN OR DISCOMFORT AT THIS TIME. WT IS 137.8. PT HAS SETTLED INTO HER ROOM AND IS WATCHING TV. CALL LIGHT IS IN REACH. PT IS A DIALYSIS PT ON MON., WED., FRI. AND HAS VERY LITTLE URINE OUTPUT. BLOOD SUGAR LEVELS WILL BE CHECKED PER ORDER AC & HS. IV IS IN RIGHT FOREARM WITH A 20G THAT IS SALINE LOCKED. WILL BE MONITORING HER AND ASSISTING PRN WITH ADL'S. SHE DOES AMBULATE WITH STANDBY ASSIST.
--- NOTE | 2016-11-22 18:44 | NUR ---
PT GOT OUT OF BED AND WAS TAKEN TO THE BATHROOM VIA WHEELCHAIR. SHE IS STILL SITTING UP IN HER WHEELCHAIR IN HER ROOM WATCHING TV. CALL LIGHT IN REACH. NO VOICED COMPLAINTS AT THIS TIME. PT RECEIVED A NORCO 5MG AT 4:35PM PER REQUEST.
[2016-11-22 20:15] VITALS: BP 140/58
--- NOTE | 2016-11-22 21:05 | NUR ---
PT HS MEDS ADMINISTERED. PT DENIES NEEDS. WCTM. BED LOW. C DARION SALMON.
[2016-11-23 01:05] VITALS: BP 142/62
--- NOTE | 2016-11-23 01:22 | NUR ---
PT RESTING, EYES CLOSED. BED LOW. CL IN REACH.
[2016-11-23 07:26] LABS: BASOPHILS 0.2 % (0-2); EOSINOPHILS 5.3 % (0-7); HEMATOCRIT 31.4 % (36.0-48.0); HEMOGLOBIN 10.4 g/dL (12-16); IMMATURE GRANULOCYTES 0.2 % (0-5); LYMPHOCYTES 23.2 % (15-50); MCH 30.2 pg (26.0-34.0); MCHC 33.1 g/dL (31.0-37.0); MCV 91.3 fL (80.0-100.0); MEAN PLATELET VOLUME 9.6 fL (7.4-10.4); MONOCYTES 10.8 % (2-11); NEUTROPHILS 60.3 % (40-80); PLATELET COUNT 216 10x3/uL (130-400); RBC 3.44 10x6/uL (4.00-5.40); RDW 15.4 % (11.5-14.5); WBC 8.6 10x3/uL (4.8-10.8)
[2016-11-23 07:34] LABS: ANION GAP 12.8 mmol/L (8-16); CALCIUM 9.1 mg/dL (8.5-10.1); CARBON DIOXIDE 27.9 mmol/L (21.0-32.0); CREATININE - SERUM 5.8 mg/dL (0.6-1.3); POTASSIUM - SERUM 3.7 mmol/L (3.5-5.1)
--- NOTE | 2016-11-23 08:00 | NUR ---
PATIENT SITTING UP IN WHEELCAHIR TO EAT BREAKFAST. ALERT/ORIENT X4. LEFT ARM IN SLING.
--- NOTE | 2016-11-23 09:30 | NUR ---
DIALYSIS COORDINATOR: PATHWAYS: [facility] Wed/Wed/Wed @ 10:15am. Medical records sent to the clinic. SOPHIE LEON.
--- NOTE | 2016-11-23 10:13 | NUR ---
PATIENT IN REHAB ROOM. WORKING WITH OCCUPATIONAL THERAPIST. PRN PAIN MEDICATION GIVEN FOR LEFT ARM PAIN.
[2016-11-23 10:58] VITALS: Ht 160 cm; Wt 59.6 kg
--- NOTE | 2016-11-23 12:00 | NUR ---
GLUCOSE LEVEL 236. SCHEDULED NOVOLOG GIVEN
[2016-11-23 12:09] VITALS: BP 162/63
--- NOTE | 2016-11-23 12:30 | NUR ---
PATIENT ADMITTED TO REHAB. DR. JIM SIMS IS PCP, SHE HAS A WALKER, SHOWER CHAIR, BEDSIDE COMMODE AT HOME. SHE USES [facility] [employer]. SHE IS A PATIENT AT [facility] ON @ 10:15. ANITA LOVELACE HER NEPHEW BAO TRANSPORT PATIENT HOME AT DISCHARGE. [phone]. WILL CONTINUE TO FOLLOW WITH PATIENT
--- NOTE | 2016-11-23 15:00 | NUR ---
PATIENT BROUGHT DOWN TO DAILYSIS CLINIC IN BED WITH ASST OF TWO DUE TO BED PATIENTS CHART TAKEN WITH PATIENT
--- NOTE | 2016-11-23 18:17 | NUR ---
EATING SUPPER CALL LIGHT IN REACH
[2016-11-23 18:41] VITALS: BP 152/68
--- NOTE | 2016-11-23 21:30 | NUR ---
PT HS MEDS ADMINISTERED AT THIS TIME. PT DENIES NEEDS. WCTM. BED LOW. CL IN REACH.
--- NOTE | 2016-11-23 23:50 | NUR ---
PT RESTING, EYES CLOSED. BED LOW. C DARION REACH.
[2016-11-24 00:40] VITALS: BP 149/76
[2016-11-24 05:54] VITALS: BP 117/52
[2016-11-24 06:44] LABS: BASOPHILS 0.4 % (0-2); EOSINOPHILS 5.6 % (0-7); HEMATOCRIT 35.4 % (36.0-48.0); HEMOGLOBIN 11.5 g/dL (12-16); IMMATURE GRANULOCYTES 0.4 % (0-5); LYMPHOCYTES 28.1 % (15-50); MCH 29.9 pg (26.0-34.0); MCHC 32.5 g/dL (31.0-37.0); MCV 91.9 fL (80.0-100.0); MEAN PLATELET VOLUME 10.2 fL (7.4-10.4); MONOCYTES 12.5 % (2-11); PLATELET COUNT 271 10x3/uL (130-400); RBC 3.85 10x6/uL (4.00-5.40); RDW 15.3 % (11.5-14.5); WBC 8.2 10x3/uL (4.8-10.8)
[2016-11-24 06:57] LABS: ANION GAP 13.2 mmol/L (8-16); CALCIUM 9.9 mg/dL (8.5-10.1); CARBON DIOXIDE 30.4 mmol/L (21.0-32.0); CREATININE - SERUM 4.8 mg/dL (0.6-1.3); POTASSIUM - SERUM 3.6 mmol/L (3.5-5.1)
--- NOTE | 2016-11-24 07:00 | NUR ---
PT WAS RECEIVED AT THE BEGINNING OF THIS SHIFT IN BED AWAKE AND ORIENTED X 3. NO SIGNS OF ANY DISCOMFORT OR DISTRESS AT THIS TIME. VITAL SIGNS; TEMP. 98.2, PULSE 78, RESP. 16, B/P 117/52, 02SAT. 98% ON ROOM AIR. PT HAS A RT. FOREARM IV THAT IS SALINE LOCKED. PT HAS A LEFT SHOULDER DRESSING WITH A SLING IN PLACE. WILL BE MONITORING HER THROUGHOUT THIS SHIFT AND ASSIST PRN WITH ADL'S. CALL LIGHT IS IN HER REACH.
--- NOTE | 2016-11-24 09:41 | RHP ---
PATIENT: THUAN TAPIA MEDICAL RECORD: [id number] ACCOUNT: [id number] LOCATION:[facility]1110 : 34 ADMISSION DATE: 11/22/16 REHABILITATION HISTORY AND PHYSICAL EXAMINATION POST ADMISSION PHYSICIAN EXAMINATION Post-admission Physical Examination and History and Physical DATE OF ADMISSION: 11/22/2016 ADMITTING DIAGNOSIS: Uremic neuropathy. HISTORY OF PRESENT ILLNESS: The patient admitted to the inpatient rehabilitation for uremic neuropathy. The patient apparently fell on Wednesday evening after tripping over her dog resulting in the left shoulder fracture. X-rays revealed a comminuted mildly displaced left humeral fracture with anterior to inferior subluxation, as well as minimal placement of the glenoid. The patient has a history of end-stage renal disease and dialyzes on Wednesday, Wednesday and Wednesday at [facility]. Her AVF is in the same on and has extensive bruising, but on examination has a good thrill and a nice audible bruit. She may have some hemorrhage associated with a fall and fracture, but was able to get dialyzed to the aorto-venous fistula on November 16. Other history includes diabetes, hypothyroidism, hypertension, vertigo. She has also got decreased sensation in her lower extremities from diabetic neuropathy and her left arm is in a sling, making her the high risk for fall. She is on a renal ADA diet and her lab values indicated some altered nutrition with only 50% p.o. intake. To meet her nutritional needs, she has to have at least 75% intake, previously she was living alone. She was moderately independent with a rolling walker for ADLs and mobility. Her nephew lives next door. Currently, she is moderate to max assist for ADLs and mobility. She wants to regain her strength and return home to her prior level of functioning. The only way she can do this is through inpatient rehabilitation. COMORBIDITIES: In this patient include end-stage renal disease, hemodialysis, hypertension, diabetes, anemia, recent wrist fracture, syncope and collapse, shoulder fracture which is acute CVA in the past, TIA, neuropathy, hypothyroidism, history of GI bleed, gastric ulcer, AV fistula and falls. PAST MEDICAL HISTORY: Significant for diabetes, also significant for end-stage renal disease, CVA, TIA, neuropathy, numbness, cataracts, GI bleed and GI ulcers. PAST SURGICAL HISTORY: Includes hysterectomy and elbow fracture. ALLERGIES: SULFA. CURRENT MEDICATIONS: Include Synthroid 100 mcg daily, Neurontin 300 mg daily, Pepcid 20 mg daily, amlodipine 2.5 mg daily. She is on a glucose replacement protocol in case of low blood sugar. She is on Atrovent nasal spray 2 sprays b.i.d., Lantus 13 units subQ daily. She is on insulin 70/30, she is on 4 units q. a.c. She is on [place] 1 tab q.6 hours p.r.n. pain, Procrit 10,000 units Wednesday, Wednesday and Wednesday, Caltrate 500 mg q. h.s., Lipitor 80 mg q. h.s and Eliquis 2.5 mg b.i.d. HABITS: No alcohol or tobacco use. HISTORY AND PHYSICAL [id number] THUAN TAPIA FAMILY HISTORY: Noncontributory. SOCIAL HISTORY: The patient hopes to return back home and get back to her prior level of functioning and she lives near family members. REVIEW OF SYSTEMS: GENERAL: Does complain of weakness and fatigue. HEENT: Denies cold, cough, or congestion. CARDIOVASCULAR: Denies any chest pain. LUNGS: Denies any shortness of breath. PHYSICAL EXAMINATION: VITAL SIGNS: Stable, afebrile. GENERAL: Elderly female, in no acute distress, alert upon exam. HEENT: Normocephalic, atraumatic. Mucosa moist. NECK: Supple. No lymphadenopathy. LUNGS: Clear at this time. HEART: Regular rate and rhythm. ABDOMEN: Benign. EXTREMITIES: Does have noted bruising to the same side of her upper extremity where her AV fistula is. NEUROLOGIC: Slow to mentate, but intact. LABORATORY DATA: Her white count is 8.6, H&H of 10 and 31 and platelet count was noted to be 216. LABORATORY DATA: Her sodium is 137, potassium 3.7, BUN and creatinine of 48 and 5.8 and blood sugar is noted to be 134. ASSESSMENT: This is an 86-year-old female patient admitted to rehab with a working diagnosis of uremic neuropathy and also status post shoulder fracture. The patient has potential to make improvement. We instituted the following multidisciplinary therapies including to, but not limited to physical, occupational, respiratory, speech, nutritional services, prosthetics and orthotics. Given her complex condition and risk for more complications, rehabilitation services cannot be provided at a low level of care such as a correction facility. PLAN: 1. Admit to [facility] rehab for intensive inpatient therapy to include the following disciplines: A. Physical therapy to improve gait, all transfer skills and bed mobility to a modified independent level. B. Occupational therapy to improve activities of daily living to a modified independent level. C. Case management to assist with discharge planning and placement options. D. Nutrition to assist with nutritional needs. E. Rehabilitation nursing to assist in monitoring the patient's underlying medical conditions and to assist with any type of bowel or bladder management. 2. The patient's current medication and medical care will be continued. 3. The patient will be placed on standard fall precautions. 4. The patient's estimated length of stay is approximately 7-10 days. 5. Discuss this patient during care team staff meeting this week. HISTORY AND PHYSICAL [id number] [place] TRANSINT:[id number] Voice Confirmation ID: [id number] DOCUMENT ID: [id number] ALF LANDON MD at 0941 CC: [id number] DICTATION DATE: 11/23/16 0900 DUCK OPERATOR: 11/23/16 1205 ADM IN [facility] [address] [id number]
[2016-11-24 10:02] VITALS: BP 117/52
[2016-11-24 12:05] VITALS: BP 131/61
--- NOTE | 2016-11-24 13:06 | NUR ---
PT ASKED FOR A PAIN PILL AROUND 12:00PM AND RECEIVED A NORCO 5MG FOR DISCOMFORT IN HER LEFT SHOULDER REGION. HER BLOOD SUGAR LEVEL WAS CHECKED AROUND 11:30AM AND WAS FOUND TO BE 75. SHE WAS GIVEN 2 8 OZ ORANGE JUICES WITH 4 SUGARS. HER NOVOLOG WAS HELD THIS MORNING TOO.
[2016-11-24 18:26] VITALS: BP 136/81
--- NOTE | 2016-11-24 18:35 | NUR ---
PT JUST ASKED FOR A PAIN PILL AND WAS GIVEN HER NORCO 5MG TAB AT 6:22PM. PT SITTING IN WHEELCHAIR IN ROOM WATCHING TV.
--- NOTE | 2016-11-24 19:30 | NUR ---
PT RESTING WITH EYES CLOSED, AROUSES TO SOFT VERBAL STIMULATION, ASSESSMENT PER FLOW SHEET, SALINE LOCK IN RIGHT FA INTACT WITH NO REDNESS OR EDEMA, PT REPORTS FLATUS, NO BM, PT UP TO WC, TO COMMODE, VOIDED BY SELF WITH NO DIFFICULTY, FRESH ADULT GARMENT AND SCRUB BOTTOMS APPLIED, PT BACK TO BED, DENIES FURTHER NEEDS
--- NOTE | 2016-11-24 20:20 | NUR ---
PT RESTING WITH EYES CLOSED, RESP QUIET, NO DISTRESS NOTED, LEFT UNDISTURBED AT THIS TIME
--- NOTE | 2016-11-24 20:32 | NUR ---
PT RESTING WITH EYES CLOSED, AROUSES TO SOFT VERBAL STIMULATION, FSBS 228, INFORMED PT THAT I WILL BE BACK SHORTLY TO ADM MEDS, PT VERBALIZES UNDERSTANDING, DENIES NEEDS AT THIS TIME
--- NOTE | 2016-11-24 20:45 | NUR ---
PT HEALTH EDUCATOR LIGHT, PT UP TO WC WITH ASSISTANCE, TO COMMODE, VOIDED BY SELF WITH NO DIFFICULTY, PT BACK TO BED
--- NOTE | 2016-11-24 21:52 | NUR ---
PT AWAKE, ADM 2100 MEDS PER MD ORDERS, SEE EMAR, PT DENIES NEEDS AT THIS TIME
--- NOTE | 2016-11-24 22:15 | NUR ---
PT CLINICAL SAFETY MANAGER LIGHT, PT UP TO WC WITH ASSISTANCE, TO COMMODE, VOIDED BY SELF WITH NO DIFFICULTY, PT BACK TO BED, LIGHTS OFF PER PT'S REQUEST, PT DENIES FURTHER NEEDS
[2016-11-25 00:25] VITALS: BP 146/98
--- NOTE | 2016-11-25 00:25 | NUR ---
PT RESTING WITH EYES CLOSED, AROUSES TO SOFT VERBAL STIMULATION, VS OBTAINED, PT DENIES NEEDS OR PAIN AT THIS TIME
--- NOTE | 2016-11-25 02:07 | NUR ---
PT RESTING WITH EYES CLOSED, RESP QUIET, NO DISTRESS NOTD, LEFT UNDISTURBED AT THIS TIME
--- NOTE | 2016-11-25 04:25 | NUR ---
PT RESTING WITH EYES CLOSED, RESP QUIET, NO DISTRESS NOTED, LEFT UNDISTURBED AT THIS TIME
--- NOTE | 2016-11-25 06:40 | NUR ---
PT AWAKE, UP TO BR VIA WC WITH ASSISTANCE, PT UNABLE TO VOID, PT INCONTINENT, ADULT GARMENT CHANGED, PT BACK TO BED, VS OBTAINED, FSBS
[2016-11-25 06:51] VITALS: BP 139/58
--- NOTE | 2016-11-25 06:51 | NUR ---
ADM 0600 MED PER MD ORDERS, SEE EMAR, PT DENIES NEEDS OR PAIN AT THIS TIME
--- NOTE | 2016-11-25 07:18 | NUR ---
SHIFT REPORT TO DAY SHIFT
--- NOTE | 2016-11-25 08:02 | NUR ---
PATIENT RESTING IN ROOM WHEN BREAKFAST TRAY BROUGHT INTO ROOM. PATIENT IS ALERT/ORIENT X4. CALL LIGHT WITHIN REACH. VOICES NO NEEDS AT THIS TIME
--- NOTE | 2016-11-25 08:38 | NUR ---
AWAKENED FOR BREAKFAST.DENIES NEEDS.
--- NOTE | 2016-11-25 10:25 | NUR ---
PATIENT IN REHAB ROOM. WORKING WITH OCCUPATIONAL THERAPIST. REQUESTED PRN PAIN MEDICATION FOR LEFT SHOULDER PAIN. PRN PAIN MEDICATION GIVEN
--- NOTE | 2016-11-25 11:45 | NUR ---
GLUCOSE LEVEL 145.
--- NOTE | 2016-11-25 11:45 | NUR ---
GLUCOSE LEVEL 145. NO SLIDING SCALE INSULIN GIVEN PER ORDER
[2016-11-25 12:09] VITALS: BP 97/52
--- NOTE | 2016-11-25 13:45 | NUR ---
COMPREHENSIVE ADVISOR HERE TO NEWS CAMERA OPERATOR PATIENT AND TAKE TO DIALYSIS CLINIC.
--- NOTE | 2016-11-25 14:17 | NUR ---
CARE TEAM MEETING: WILL CONTINUE WITH THEREAPY. PATIENT TENATIVE DISCHARGE DATE IS 12/04/16. WILL CONTINUE TO FOLLOW WITH PATIENT UNTIL DISCHARGED
--- NOTE | 2016-11-25 17:25 | NUR ---
PATIENT BACK IN ROOM FROM DIAYSIS CLINIC. SITTING UP ON THE SIDE OF THE BED TO EAT SUPPER. GLUCOSE LEVEL 168. SCHEDULED INSULIN GIVEN
[2016-11-25 18:00] VITALS: BP 140/68
--- NOTE | 2016-11-25 18:04 | NUR ---
had hemodiaysis today in the dialysis suite from 1359 until 1659 via her left upper arm av fistula. Average blood flow was 350-400 mls/minute. Net fluid removed was 2000 mls. Post vital signs were: B/P: 147/76, HR:81, Temp: 98.6, Resps:16.
--- NOTE | 2016-11-25 19:30 | NUR ---
PT. IN BED WITH HOB UP FOR COMFORT AND IS WATCHING TV. ASSESSMENT COMPLETED. NO VOICED NEEDS AT THIS TIME AND SHE HAS HER CALL LIGHT WITHIN REACH. PT. KNOWS TO KEEP HER LUE SLING INPLACE IT WILL HELP WITH DECREASING DISCOMFORT AND WILL KEEP LUE POSITIONED WHEN SHE PLACES A PILLOW UNDERNEATH.
--- NOTE | 2016-11-25 23:03 | NUR ---
PT. IN BED WITH HOB UP FOR COMFORT AND CONTINUES TO WATCH TV. NO VOICED NEEDS AND SLING TO LUE AND SUPPORTED UP ON PILLOW. CALL LIGHT WITHIN REACH.
[2016-11-26 00:29] VITALS: BP 140/59
--- NOTE | 2016-11-26 03:52 | NUR ---
PT. IN BED WITH HOB UP FOR COMFORT WITH EYES CLOSED AND RESP. DEEP AND EVEN. LUE IN SLING AND ELEVATED UP ON PILLOW. CALL LIGHT WITHIN REACH.
--- NOTE | 2016-11-26 05:45 | NUR ---
GAVE PT. HER FRANCISCO CRACKERS FROM LAST NIGHT AND SOME ORANGE JUICE FOR THE 59 FSBS THIS MORNING.
[2016-11-26 06:07] VITALS: BP 130/65
--- NOTE | 2016-11-26 07:30 | NUR ---
PT IS RESTING IN BED WITH EYES CLOSED. AWOKE EASILY TO VERBAL STIMULI. PT VOICED COMPLAINT OF LEFT SHOULDER PAIN LEVEL OF 6. SLING IS ON AND INTACT. NO OTHER NEEDS VOICED. SR'S ARE UP X 3 IN BED. CALL LIGHT AND BEDSIDE TABLE ARE WITHIN EASY REACH.
--- NOTE | 2016-11-26 10:07 | NUR ---
PT ASSISTED TO THE BATHROOM WITH SBA. VOIDED WITHOUT DIFFICULTY. NO DISTRESS NOTED.
--- NOTE | 2016-11-26 10:59 | NUR ---
Nutrition Follow Up: Chart reviewed. Pt is eating 88% meal avg on a diabetic diet (liberal diet per renal). Wt stable. No BM since admit. Labs reviewed. Meds noted including Lantus, Novolog. Pt with good po intake at this time. Rec continue diet per renal. RD will continue to monitor pt progress.
[2016-11-26 12:13] VITALS: BP 162/45
--- NOTE | 2016-11-26 14:23 | NUR ---
PT IS PARTICIPATING IN THERAPY AT THIS TIME.
--- NOTE | 2016-11-26 18:00 | NUR ---
RESTING QUIETLY.CL IN REACH.
[2016-11-26 18:51] VITALS: BP 133/82
--- NOTE | 2016-11-26 19:50 | NUR ---
PT. IN BED WITH HOB UP WITH EYES CLOSED AND RESP. DEEP AND EVEN. SLING TO LUE AND LUE ALSO ELEVATED UP ON PILLOW. PT AWAKENS EASILY FOR ASSESSMENT. ASSISTED PT. TO BR TO VOID. ASSISTED BACK TO BED AND POSITIONED TO COMFORT. NO VOICED NEEDS AT THIS TIME. CALL LIGHT WITHIN REACH.
--- NOTE | 2016-11-26 23:50 | NUR ---
PT. UP TO BR WITH ASSISTANCE TO URINATE. PT. ASSISTED BACK TO BED AND POSITIONED TO COMFORT WITH CALL LIGHT WITHIN REACH. NO VOICED NEEDS AT THIS TIME.
--- NOTE | 2016-11-27 00:05 | NUR ---
DIALYSIS COORDINATOR: PATHWAYS: [facility] WED/WED/FRI @ 10:15. UPDATED RECORDS FORWARDED TO UNIT. SOPHIE LEON.
[2016-11-27 00:27] VITALS: BP 138/79
--- NOTE | 2016-11-27 03:22 | NUR ---
PT. IN BED WITH HOB UP FOR COMFORT AND LUE IN SLING AND ELEVATED UP ON PILLOW. EYES CLOSED AND RESP. DEEP AND EVEN. CALL LIGHT WITHIN REACH.
[2016-11-27 04:58] VITALS: BP 140/52
[2016-11-27 06:51] LABS: BASOPHILS 0.2 % (0-2); EOSINOPHILS 3.8 % (0-7); HEMATOCRIT 34.5 % (36.0-48.0); IMMATURE GRANULOCYTES 0.6 % (0-5); LYMPHOCYTES 29.3 % (15-50); MCH 29.9 pg (26.0-34.0); MCHC 31.9 g/dL (31.0-37.0); MCV 93.8 fL (80.0-100.0); MEAN PLATELET VOLUME 9.4 fL (7.4-10.4); MONOCYTES 10.6 % (2-11); NEUTROPHILS 55.5 % (40-80); PLATELET COUNT 246 10x3/uL (130-400); RBC 3.68 10x6/uL (4.00-5.40); RDW 15.5 % (11.5-14.5); WBC 8.7 10x3/uL (4.8-10.8)
--- NOTE | 2016-11-27 07:00 | NUR ---
PT WAS RECEIVED IN BED AWAKE AND ORIENTED X 3 AT THE BEGINNING OF THIS SHIFT. VITAL SIGNS; TEMP. 97.9, PULSE 84, RESP. 14, B/P 128/46, 02SAT. 95%. NO VOICED COMPLAINTS OR CONCERNS TO STAFF. WILL BE MONITORING HER AND ASSISTING PRN WITH ADL'S. LEFT SHOULDER IS IN A SLING. STABLE CONDITION OBSERVED.
[2016-11-27 07:11] LABS: ANION GAP 11.9 mmol/L (8-16); CALCIUM 9.9 mg/dL (8.5-10.1); CARBON DIOXIDE 30.4 mmol/L (21.0-32.0); CREATININE - SERUM 5.5 mg/dL (0.6-1.3); POTASSIUM - SERUM 4.3 mmol/L (3.5-5.1)
[2016-11-27 10:01] VITALS: BP 128/46
--- NOTE | 2016-11-27 15:05 | NUR ---
PT ASKED FOR PAIN MEDICATION AROUND 0900 AND RECEIVED A NORCO 5MG AT THAT TIME. PT IS RESTING IN HER BED. SHE WILL BE GOING TO DIALYSIS LATER THIS AFTERNOON.
--- NOTE | 2016-11-27 18:18 | NUR ---
PT IS RESTING IN BED, WATCHING TV AND RELAXING. CALL LIGHT IS IN REACH. NO DISCOMFORT OR DISTRESS FOUND. WILL CONTINUE TO MONITOR TILL END OF SHIFT.
--- NOTE | 2016-11-27 18:55 | NUR ---
PATIENT WAS TRANSPORTED BY BED TO DIALYSIS UNIT ACCOMPANIED BY DESIREE ALARCON AND JOANA GUZMAN LPN(O).
[2016-11-27 22:50] VITALS: BP 104/50
--- NOTE | 2016-11-27 22:50 | NUR ---
RETURNED PATIENT TO ROOM VIA BED FROM DIALYSIS. PATIENT AWAKE. PROVIDED HER WITH FRESH WATER. ASSESSMENT COMPLETE. TOLD HER I WILL RETURN SHORTLY TO DELIVER HER HS MEDS.
--- NOTE | 2016-11-27 23:20 | NUR ---
GAVE PATIENT NORCO 5/325 X1 TAB PO FOR PAIN LEVEL OF 4/10 IN LEFT SHOULDER. READJUSTED HER LEFT ARM SLING AND ELEVATED LEFT ARM ON PILLOW. D/C'D 20 GA S/L FROM RIGHT FOREARM IT WAS UNDATED AND APPEARED MORE THAN 96 HRS OLD.
--- NOTE | 2016-11-28 00:35 | NUR ---
RESTING IN BED, EYES CLOSED. NO DISTRESS NOTED.
--- NOTE | 2016-11-28 02:30 | NUR ---
CONTINUES IN BED, EYES CLOSED. APPEARS COMFORTABLE.
--- NOTE | 2016-11-28 03:55 | NUR ---
ROUNDING, FOUND PATIENT ATTEMPTING TO SIT UP ON BEDSIDE. ASSISTED HER UP TO BR TO FINISH URINATING AFTER MODERATE INCONTINENCE IN BRIEF AND PINK PAD. CLEANSED PATIENT AND CHANGED PINK PAD AND BRIEF.
[2016-11-28 04:20] VITALS: BP 112/47
--- NOTE | 2016-11-28 06:40 | NUR ---
PATIENT AWAKE. FSBS 55. HELD 70/30 INSULIN FOR DAY SHIFT TO GIVE AFTER BREAKFAST. GAVE PATIENT SNACK OF 8 OZS APPLE JUICE AND 3 GRHAM CRAX SQUARES.
--- NOTE | 2016-11-28 08:00 | NUR ---
PATIENT ALERT/ORIENT X4. SLING TO LEFT ARM. RESERVE LEFT ARM. FISTULA LEFT UPPER ARM. CALL LIGHT WITHIN REACH. VOICES NO NEEDS AT THIS TIME
--- NOTE | 2016-11-28 10:48 | NUR ---
PATIENT USING CALL LIGHT FOR NEEDS. HELPED INTO BATHROOM BY THIS NURSE. STAND BY ASST FROM BED TO WHEELCHAIR AND WHEELCHAIR UNTO TOILET. PATIENT ABLE TO DO SELF EMELIA CARE.
--- NOTE | 2016-11-28 11:30 | NUR ---
GLUCOSE LEVEL 108. PATIENT REFUSED NOVOLOG 70/30. FOUR UNITS.
[2016-11-28 12:00] VITALS: BP 130/63
--- NOTE | 2016-11-28 15:34 | NUR ---
PATIENT HAS VISITORS IN ROOM. VOICES NO NEEDS AT THIS TIME
[2016-11-28 17:41] VITALS: BP 124/55
--- NOTE | 2016-11-28 18:05 | NUR ---
PATIENT RESTING IN BED AFTER VISITORS LEFT. VOICES NO NEEDS. CALL LIGHT WITHIN REACH
--- NOTE | 2016-11-28 19:00 | NUR ---
IN BED, HOB UP 45 DEGREES. NO COMPLAINTS AT THIS TIME.
--- NOTE | 2016-11-28 21:20 | NUR ---
ASSESSMENT AND HS MEDS COMPLETE. DENIES PAIN OR OTHER NEEDS. REPOSITIONED HER HIGHER UP IN BED. CHECKED FOR INCONTIENCE AND FOUND NONE.
--- NOTE | 2016-11-28 21:35 | NUR ---
PATIENT CALLED ME BACK TO SAYS SHE NEEDED TO GET UP TO COMMODE. ASSISTED HER TO COMMODE, BUT SHE NEITHER URINATED NOR HAD A BM, HOWEVER SHE WAS CLEANSED AND HER PULL-UP CHANGED DUE TO SMALL URINARY INCONTINENCE SINCE I LEFT HER AT 2119. ALSO HELPED HER TO CHANGED HER SCRUB TOP AFTER WASHING UNDERARMS AND APPLYING DEODORANT/ANTIPERSPIRANT. THEN RETURNED HER TO BED.
[2016-11-28 22:15] VITALS: BP 135/61
--- NOTE | 2016-11-28 22:15 | NUR ---
RESTING IN BED, EYES CLOSED. SLING WAS EARLIER ADJUSTED ON LEFT ARM. LEFT ARM IS ELEVATED ON A PILLOW. NON DISTRESS NOTED.
--- NOTE | 2016-11-29 00:15 | NUR ---
CONTINUES IN BED, EYES CLOSED. HOB UP 15 DEGREES. NO DISTRESS EVIDENT.
--- NOTE | 2016-11-29 01:30 | NUR ---
ASSISTED PATIENT UP TO BR TO URINATE, AND THEN BACK TO BED.
--- NOTE | 2016-11-29 04:40 | NUR ---
RESTING IN BED, EYES CLOSED.
[2016-11-29 05:17] VITALS: BP 135/54
--- NOTE | 2016-11-29 05:35 | NUR ---
VSS. GAVE PATIENT SCHEDULED SYNTHROID, BUT HELD 70/30 INSULIN FOR FSBS OF 77. GAVE HER 8 OZS APPLE JUICE TO SUPPORT HER BLOOD SUGAR UNTIL BREAKFAST. PATIENT HAS DECLINED HER HS SNACK THE PAST 2 NIGHTS AND BLOOD SUGAR HAS BEEN LOW (55 YESTERDAY AND 77 TODAY) AFTER HS DOSE OF 13 UNITS OF LANTUS WAS GIVEN EACH NIGHT. ASSISTED HER UP TO BR TO URINATE AND THEN BACK TO BED.
--- NOTE | 2016-11-29 08:14 | NUR ---
SITTING UP EATING BREAKFAST CALL LIGHT IN REACH
--- NOTE | 2016-11-29 08:25 | NUR ---
PRN NORCO GIVEN FOR LEFT SHOULDER PAIN/DISC. SLING IN PLACE ON LEFT ARM
--- NOTE | 2016-11-29 11:44 | NUR ---
GLUCOSE LEVEL 134. NOVOLOG 70/30, FOUR UNITS GIVEN
[2016-11-29 11:52] VITALS: BP 129/57
--- NOTE | 2016-11-29 17:40 | NUR ---
GLUCOSE LEVEL 78. NO NOVOLOG 70/30 GIVEN. APPLIE JUICE AND GRAM CRAKERS GIVEN
[2016-11-29 18:06] VITALS: BP 110/61
--- NOTE | 2016-11-29 18:55 | NUR ---
RESTING IN BED, EYES CLOSED. NO DISTRESS NOTED.
--- NOTE | 2016-11-29 19:50 | NUR ---
CONTINUES IN BED, EYES CLOSED.
[2016-11-29 22:00] VITALS: BP 130/52
--- NOTE | 2016-11-29 22:00 | NUR ---
ASSESSMENT AND HS MEDS COMPLETE. FSBS 179. HELD LANTUS PATIENT'S FSBS IN EARLY AM HAS DROPPED THE PAST FEW NIGHTS AFTER RECEIVING SCHEDULED LANTUS. REFUSES HS SNACK. SAYS NOT INTERESTED. GAVE HER NORCO 5/325 X1 TAB PO FOR PAIN LEVEL OF 4/10 IN LEFT SHOULDER. REFUSED SHOWER. TALKED HER INTO WACHING UP WHILE ON COMMODE. CHANGED HER PULL-UP AND SCRUB TOP WHEN BATH WAS DONE. CHANGED ALL LINENS AND RETURNED HER TO BED.
--- NOTE | 2016-11-30 00:10 | NUR ---
ON ROUNDS, FOUND PATIENT WITH LEGS THRUST THROUGH BEDRAILS ATTEMPTING OOB. HAD NOT CALLED FOR ASSIST. REMINDED HER TO CALL FOR ASSIST TO KEEP HER FROM FALLING. ASSISTED HER UP TO BR TO URINATE, AND THEN BACK TO BED. DENIES FURTHER NEEDS.
--- NOTE | 2016-11-30 02:00 | NUR ---
IN BED, EYES CLOSED. SNORING LOUDLY.
--- NOTE | 2016-11-30 04:00 | NUR ---
RESTING IN BED, EYES CLOSED. RESPIRATIONS ARE QUIET AND UNLABORED.
[2016-11-30 05:41] VITALS: BP 137/62
--- NOTE | 2016-11-30 05:50 | NUR ---
ASSISTED PATIENT UP TO BR TO URINATE AND THEN DON SCRUB BOTTOMS. ON HER RETURN BED, TOOK AND RECORDED HER VITAL SIGNS AND GAVE HER SCHEDULED SYNTHROID. FSBS 164. DELIVERED HER 0700-SCHEDULED NOVOLIN 70/30 INSULIN SC IN RIGHT UPPER ARM.
[2016-11-30 06:42] LABS: BASOPHILS 0.3 % (0-2); EOSINOPHILS 5.4 % (0-7); HEMATOCRIT 37.7 % (36.0-48.0); HEMOGLOBIN 11.7 g/dL (12-16); IMMATURE GRANULOCYTES 0.5 % (0-5); LYMPHOCYTES 29.3 % (15-50); MCH 29.8 pg (26.0-34.0); MCV 95.9 fL (80.0-100.0); MEAN PLATELET VOLUME 9.2 fL (7.4-10.4); MONOCYTES 9.7 % (2-11); NEUTROPHILS 54.8 % (40-80); PLATELET COUNT 218 10x3/uL (130-400); RBC 3.93 10x6/uL (4.00-5.40); RDW 16.1 % (11.5-14.5); WBC 7.3 10x3/uL (4.8-10.8)
[2016-11-30 06:59] LABS: ANION GAP 10.2 mmol/L (8-16); CALCIUM 9.8 mg/dL (8.5-10.1); CARBON DIOXIDE 31.7 mmol/L (21.0-32.0); CREATININE - SERUM 6.2 mg/dL (0.6-1.3); POTASSIUM - SERUM 4.9 mmol/L (3.5-5.1)
--- NOTE | 2016-11-30 07:45 | NUR ---
PT RESTING IN BED, DENIES NEEDS. BED LOW. CL IN REACH.
--- NOTE | 2016-11-30 09:07 | NUR ---
PT MEDS ADMINISTERED. PT DENIES NEEDS. WCTM. BED LOW. CL IN REACH.
--- NOTE | 2016-11-30 11:15 | NUR ---
PT IN THERAPY
[2016-11-30 12:00] VITALS: BP 136/59
--- NOTE | 2016-11-30 12:40 | NUR ---
PT EATING LUNCH. DENIES NEEDS.
[2016-11-30 12:43] LABS: ALP - ISO (ALP) 101 IU/L (39-117); ALP - ISO (BONE) FRACTION 33 % (14-68); ALP - ISO (LIVER) FRACTION 67 % (18-85); ALP - ISO(INTESTINAL) FRACTION 0 % (0-18)
--- NOTE | 2016-11-30 14:10 | NUR ---
PT REQ AND REC'D PRN PAIN MEDICATION FOR SHOULDER PAIN 01/25. WCTM. BED LOW. CL IN REACH.
--- NOTE | 2016-11-30 19:35 | NUR ---
PT. IN BED WITH HOB UP FOR COMFORT AND IS WATCHING TV. ASSESSMENT COMPLETED. NO VOICED NEEDS AT THIS TIME. LUE IN SLING AND LEFT SHOULDER ALY INTACT. PT. REQUESTING FRANCISCO CRACKERS AND APPLE JUICE FOR HER HS SNACK TONIGHT. CALL LIGHT WITHIN REACH.
[2016-11-30 21:12] VITALS: BP 123/59
--- NOTE | 2016-11-30 22:45 | NUR ---
PT. ATE 100% OF HER BEDTIME SNACK WITH ENOURAGEMENT; APPLE JUICE AND FRANCISCO CRACKERS.
--- NOTE | 2016-11-30 23:09 | NUR ---
PT. IN BED WITH HOB UP FOR COMFORT WITH EYES CLOSED AND RESP. EVEN. PT. HAS PILLOW UNDER LUE FOR SUPPORT AND HER SLING IS ALSO PRESENT TO HER LUE. CALL LIGHT WITHIN REACH.
--- NOTE | 2016-12-01 03:05 | NUR ---
PT. IN BED WITH HOB SLIGHTLY ELEVATED. EYES CLOSED AND RESP. DEEP AND EVEN. LUE ELEVATED UP ON PILLOW AND SLING PRESENT ON LUE FOR SUPPORT. CALL LIGHT WITHIN REACH.
--- NOTE | 2016-12-01 05:30 | NUR ---
IMMEDIATELY AFTER GETTING FSBS RESULT OF 67 GAVE PT. ORANGE JUICE TO DRINK. PT. DRANK 236MLS OF JUICE. ASSISTED PT. TO BR TO URINATE AND THEN BACK TO BED AND POSITIONED TO COMFORT WITH PILLOW UNDER LUE. CALL LIGHT WITHIN REACH.
[2016-12-01 05:53] VITALS: BP 157/59
--- NOTE | 2016-12-01 07:30 | NUR ---
PT IS RESTING IN BED WITH EYES OPEN. ALERT AND ORIENTED X 4. DENIES ACUTE DISCOMFORT AT THIS TIME. ALY TO LEFT SHOULDER ARE CDI. NO DRAINAGE NOTED. SITE IS HEALING WELL. LEFT ARM SLING IS ON AND INTACT. LEFT ARM FISTULA NOTED WITH GOOD BRUITT AND THRILL. SR'S ARE UP X 2 IN BED. CALL LIGHT AND BEDSIDE TABLE ARE WITHIN EASY REACH.
--- NOTE | 2016-12-01 08:58 | NUR ---
PT IS RESTING IN BED AWAITING THERAPY. NO NEEDS VOICED.
--- NOTE | 2016-12-01 11:00 | NUR ---
PT IS PARTICIPATING IN THERAPY AT THIS TIME.
[2016-12-01 12:00] VITALS: BP 165/68
--- NOTE | 2016-12-01 13:38 | NUR ---
PT IS RESTING IN HER ROOM BETWEEN THERAPIES. NO NEEDS VOICED.
--- NOTE | 2016-12-01 14:32 | NUR ---
PT TO DIALYSIS VIA BED PROPELLED BY STAFF AT THIS TIME.
[2016-12-01 17:58] VITALS: BP 143/79
--- NOTE | 2016-12-01 18:00 | NUR ---
IN BED.CL IN REACH.DENIES NEEDS.
--- NOTE | 2016-12-01 19:30 | NUR ---
PT. IN BED WITH HOB UP FOR COMFORT WITH EYES CLOSED AND RESP. EVEN. PT. AWAKENS EASILY FOR ASSESSMENT. NO VOICED NEEDS. SLING TO LUE AND PILLOW UNDER LUE FOR SUPPORT. CALL LIGHT WITHIN REACH.
--- NOTE | 2016-12-01 22:01 | NUR ---
PT. ATE 100% OF HER HS SNACK OF FRANCISCO CRACKERS AND APPLE JUICE.
[2016-12-02 00:24] VITALS: BP 149/66
[2016-12-02 05:13] VITALS: BP 104/72
[2016-12-02 06:26] LABS: BASOPHILS 0.3 % (0-2); HEMATOCRIT 38.7 % (36.0-48.0); HEMOGLOBIN 11.9 g/dL (12-16); IMMATURE GRANULOCYTES 0.2 % (0-5); LYMPHOCYTES 22.3 % (15-50); MCH 29.6 pg (26.0-34.0); MCHC 30.7 g/dL (31.0-37.0); MCV 96.3 fL (80.0-100.0); MEAN PLATELET VOLUME 9.7 fL (7.4-10.4); MONOCYTES 9.7 % (2-11); NEUTROPHILS 64.5 % (40-80); PLATELET COUNT 186 10x3/uL (130-400); RBC 4.02 10x6/uL (4.00-5.40); RDW 16.5 % (11.5-14.5); WBC 9.1 10x3/uL (4.8-10.8)
--- NOTE | 2016-12-02 06:36 | NUR ---
PT. IN BED WITH HOB UP FOR COMFORT WITH EYES CLOSED AND RESP. DEEP AND EVEN. PT. AWAKENED EASILY THIS MORNING FOR MORNING WT, VITAL SIGNS AND MEDICATIONS. NO VOICED NEEDS AT THIS TIME AND HER CALL LIGHT IS WITHIN REACH.
[2016-12-02 07:00] LABS: ANION GAP 13.3 mmol/L (8-16); CARBON DIOXIDE 29.8 mmol/L (21.0-32.0); CREATININE - SERUM 4.9 mg/dL (0.6-1.3); POTASSIUM - SERUM 5.1 mmol/L (3.5-5.1)
--- NOTE | 2016-12-02 07:25 | NUR ---
PT IS RESTING IN BED WITH EYES OPEN. ALERT AND ORIENTED X 3. SHE DENIES PAIN OR DISCOMFORT AT THIS TIME. ALY TO LEFT SHOULDER ARE CDI. NO DRAINAGE NOTED. INCISION IS HEALING WELL. LEFT ARM FISTULA NOTED WITH GOOD BRUITT AND THRILL. SR'S ARE UP X 3 IN BED. CALL LIGHT AND BEDSIDE TABLE ARE WITHIN EASY REACH.
--- NOTE | 2016-12-02 10:13 | NUR ---
PT IS PARTICIPATING IN THERAPY AT THIS TIME.
--- NOTE | 2016-12-02 11:36 | NUR ---
PT IS LYING IN BED READING THE NEWSPAPER. NO NEEDS VOICED.
[2016-12-02 11:39] VITALS: BP 148/58
--- NOTE | 2016-12-02 13:15 | NUR ---
Nutrition Follow Up: Chart reviewed. Pt is eating 89% meal avg on a diabetic diet. Wt stable. +BM 12/02/16. Labs reviewed. Meds noted including Lantus, Novolog. Pt with good po intake at this time. Rec continue current diet. RD following.
--- NOTE | 2016-12-02 14:12 | NUR ---
PT IS RESTING IN BED AFTER THERAPY. NO DISTRESS NOTED.
--- NOTE | 2016-12-02 16:12 | NUR ---
CARE TEAM MEETING: TENATIVE DISCHARGE DATE IS 12/04/16, AFTER SPEAKING WITH PATIENT SHE WOULD LIKE A REFERAL TO BE MADE TO THE [facility] IN CASE SHE IS UNABLE TO RETURN HOME AT TIME OF DISCHARGE. SHE HAS A NEICE AND NEPHEW THAT CARE FOR HER AND SHE STATES THAT THEY WANT HER TO GO TO THE [facility] FOR A FEW WEEKS. REFERAL FAXED PER PATIENT REQUEST.ENCOURAGE HER TO ASK HER FAMILY TO COME AND SEE HOW SHE IS DOING. SHE IS TO SPEAK WITH HER NEPHEW.
--- NOTE | 2016-12-02 17:40 | NUR ---
PT IS RESTING IN BED AFTER SUPPER. NO DISTRESS NOTED.
[2016-12-02 17:54] VITALS: BP 134/78
--- NOTE | 2016-12-02 18:00 | NUR ---
SITTING ON SIDE OF BED.CL IN REACH.
--- NOTE | 2016-12-02 19:35 | NUR ---
PT. IN BED WITH HOB UP FOR COMFORT WITH EYES CLOSED AND RESP. EVEN. PT. AWAKENS EASILY FOR ASSESSMENT. PT. DENIES ANY NEEDS AT THIS TIME AND HER CALL LIGHT IS WITHIN REACH.
--- NOTE | 2016-12-02 22:01 | NUR ---
PT. HAS CONSUMED 100% OF HER BEDTIME SNACK OF FRANCISCO CRACKERS AND APPLE JUICE SHE HAD REQUESTED.
--- NOTE | 2016-12-02 23:13 | NUR ---
PT. IN BED LYING ON HER LEFT SIDE WITH EYES CLOSED AND RESP. EVEN. CALL LIGHT WITHIN REACH.
[2016-12-03 00:50] VITALS: BP 148/60
--- NOTE | 2016-12-03 03:10 | NUR ---
PT. IN BED LYING ON HER LEFT SIDE WITH EYES CLOSED AND RESP. DEEP AND EVEN. CALL LIGHT WITHIN REACH.
--- NOTE | 2016-12-03 03:30 | NUR ---
PT IN DIALYSIS.
[2016-12-03 05:18] VITALS: BP 135/59
--- NOTE | 2016-12-03 06:24 | NUR ---
PT. AWOKE EASILY THIS MORNING FOR BLOOD SUGAR, MEDS AND V.S. ASSISTED PT. TO BATHROOM WHERE SHE URINATED, CHANGED HER SOILED BRIEF AND SCRUB PANTS. ASSISTED PT. BACK TO BED AND CALL LIGHT LEFT WITHIN REACH.
--- NOTE | 2016-12-03 08:10 | NUR ---
PT UP EATING BREAKFAST, DENIES NEEDS. BED LOW. CL IN REACH.
--- NOTE | 2016-12-03 10:23 | NUR ---
PT IN THERAPY. TOLERATING WELL.
[2016-12-03 12:01] VITALS: BP 160/64
--- NOTE | 2016-12-03 12:26 | NUR ---
PATIENT HAS BEEN ACCEPTED TO THE [facility] AND WILL DISCHARGE THERE ON 12/04/16 VIA FACILITY VAN. WILL CONTINUE TO FOLLOW WITH PATIENT UNTIL DISCHARGED
--- NOTE | 2016-12-03 12:42 | NUR ---
REMOVED 22 ALY FROM LEFT SHOULDER INCISION. STERI STRIPS PLACED ON INCISION. PT EATING LUNCH NOW. DENIES NEEDS.
[2016-12-03 14:24] LABS: APPEARANCE HAZY (CLEAR); BILIRUBIN NEGATIVE (NEGATIVE); COLOR YELLOW (YELLOW); GLUCOSE 100 mg/dL (NEGATIVE); KETONE NEGATIVE (NEGATIVE); LEUKOCYTE ESTERASE 2+ (NEGATIVE); NITRITE NEGATIVE (NEGATIVE); PROTEIN 2+ mg/dL (NEGATIVE); SPECIFIC GRAVITY 1.005 (1.005-1.020); UROBILINOGEN NORMAL (NORMAL)
[2016-12-03 14:25] LABS: BACTERIA MODERATE /hpf (NONE SEEN); EPITHELIAL CELLS 25-50 /hpf (0-5); RED CELLS - URINE 0-5 /hpf (0-5); WHITE CELLS - URINE 25-50 /hpf (0-5)
--- NOTE | 2016-12-03 15:30 | NUR ---
PT IN DIALYSIS.
--- NOTE | 2016-12-03 18:55 | NUR ---
PATIENT SET OFF BED ALARM ATTEMPTING OOB TO . REMINDED HER TO CALL FOR ASSIST. TRANSFERRED HER TO COMMODE [facility] VIA W/C.
--- NOTE | 2016-12-03 21:30 | NUR ---
ASSESSMENT AND HS MEDS COMPLETED AFTER ASSISTING PATIENT BACK INTO BED. HAD HER LEGS THRUST THROUGH BEDRAILS ATTEMPTING OOB. BED ALARM HAD NOT YET SOUNDED. ASKED HER WHAT SHE WAS TRYING TO DO. POINTED TO THE BATHROOM AND SAID, "I'M TRYING TO GET MY KIDS OUT OF THERE." REMINDED HER THAT HER FAMILY WAS NOT CURRENTLY IN THE HOSPITAL TO VISIT HER. PATIENT STATED THAT THEY HAD VISITED HER EARLIER IN THE DAY. SHE THEN ASKED, "IS RUBY NEXT DOOR." REMINDED HER SHE IS IN THE HOSPITAL AND NOT AT HOME, WHICH SHE ACCEPTED.
[2016-12-03 22:11] VITALS: BP 131/61
--- NOTE | 2016-12-03 22:20 | NUR ---
RESTING IN BED, EYES CLOSED.
[2016-12-03 23:00] VITALS: BP 120/56
--- NOTE | 2016-12-03 23:00 | NUR ---
NOTE THAT VS RECORDED AT 2214 WERE TAKEN EARLIER WHEN PATIENT RETURNED FROM DIALYSIS AROUND 1830. VS RECORDED FOR 2299 ARE CURRENT.
--- NOTE | 2016-12-04 | NUR ---
RESTING IN BED, EYES CLOSED.
--- NOTE | 2016-12-04 02:20 | NUR ---
IN BED, EYES CLOSED. NO APPARENT DISTRESS.
--- NOTE | 2016-12-04 04:20 | NUR ---
RESTING QUIETLY IN BED, RESPIRATIONS UNLABORED.
[2016-12-04 05:05] VITALS: BP 160/62
--- NOTE | 2016-12-04 06:00 | NUR ---
FSBS 141. GAVE PATIENT SCHEDULED 70/30 INSULIN, 4 UNITS SC IN EDITH. ALSO GAVE HER SCHEDULED SYNTHROID.
[2016-12-04 07:17] LABS: BASOPHILS 0.6 % (0-2); EOSINOPHILS 3.5 % (0-7); HEMATOCRIT 43.3 % (36.0-48.0); HEMOGLOBIN 13.3 g/dL (12-16); IMMATURE GRANULOCYTES 0.3 % (0-5); LYMPHOCYTES 27.6 % (15-50); MCHC 30.7 g/dL (31.0-37.0); MCV 97.5 fL (80.0-100.0); MEAN PLATELET VOLUME 9.9 fL (7.4-10.4); MONOCYTES 9.5 % (2-11); NEUTROPHILS 58.5 % (40-80); PLATELET COUNT 175 10x3/uL (130-400); RBC 4.44 10x6/uL (4.00-5.40); RDW 17.1 % (11.5-14.5); WBC 7.2 10x3/uL (4.8-10.8)
[2016-12-04 07:49] LABS: CALCIUM 10.4 mg/dL (8.5-10.1); CARBON DIOXIDE 29.5 mmol/L (21.0-32.0); CREATININE - SERUM 5.1 mg/dL (0.6-1.3); POTASSIUM - SERUM 4.5 mmol/L (3.5-5.1)
--- NOTE | 2016-12-04 09:01 | NUR ---
PT EATING BREAKFAST, DENIES NEEDS.
--- NOTE | 2016-12-04 09:27 | NUR ---
PATIENT DISCHARGING TO THE [facility], PATIENT WILL CONTINUE WITH SAME HD DAYS -- @ 10:15 [address] [facility]. DR. [address] 12/07/16 @ 3:00, DR. JIM SIMS WHEN PATIENT DISCHARGES FROM FACILITY. PATIENT CHOICE FORM FOR SNF AND [facility] FORM SIGNED, EXPLAINED AND FILED IN CHART.FAMILY NOTIFIED.
== END 2016-12-04 11:56 | DRG 684 ==
LOC: D.REHAB 13:43
PROVIDERS: Internal Medicine Nephrology; ADMIT Emergency Medicine
DX: N18.6 End stage renal disease (principal); G63 Polyneuropathy in diseases classified elsewhere; E11.22 Type 2 diabetes mellitus with diabetic chronic kidney disease; I12.0 Hypertensive chronic kidney disease with stage 5 chronic kidney disease or end stage renal disease; Z99.2 Dependence on renal dialysis; D64.9 Anemia, unspecified; R55 Syncope and collapse; E03.9 Hypothyroidism, unspecified; S42.302D Unspecified fracture of shaft of humerus, left arm, subsequent encounter for fracture with routine healing; W01.0XXD Fall on same level from slipping, tripping and stumbling without subsequent striking against object, subsequent encounter

== ENCOUNTER 2019-01-10 08:35 | Inpatient (IN) | payer MEDICARE, OTHER ==
[~2019-01-10 08:35] MED LIST changes: +CARDIZEM30 MG PO; +K-DUR20 MEQ PO; +LANOXIN125 MCG PO; +SENSIPAR30 MG PO; -SYNTHROID100 MCG PO; +SYNTHROID88 MCG PO; +TRADJENTA5 MG PO; +TUMS X-STR300 MG PO
[2019-01-10 10:00] VITALS: BP 163/48
[2019-01-10 10:54] LABS: INR 0.88 (0.85-1.17); PROTIME 11.5 SECONDS (11.6-15.0)
[2019-01-10 10:56] LABS: ALBUMIN 3.5 g/dL (3.4-5.0); ANION GAP 15.8 mmol/L (8-16); BILIRUBIN - TOTAL 0.72 mg/dL (0.2-1.3); CALCIUM 9.9 mg/dL (8.5-10.1); CARBON DIOXIDE 26.4 mmol/L (21.0-32.0); CREATININE - SERUM 4.8 mg/dL (0.6-1.3); POTASSIUM - SERUM 4.2 mmol/L (3.5-5.1); PROTEIN - SERUM 6.6 g/dL (6.4-8.2)
[2019-01-10 11:00] VITALS: BP 168/43
--- NOTE | 2019-01-10 11:30 | NUR ---
ALL WOUNDS CLEANED WITH WOUND CLENSER, LEFT EYEBROW WOUND REPAIRED WITH DERMABOND GLUE BY DR. MOREJON. SKIN TEAR LEFT ELBOW AREA COVERED WITH TELFA AND PAPER TAPE.
[2019-01-10 11:56] LABS: BASOPHILS 0.2 % (0-2); EOSINOPHILS 1.1 % (0-7); HEMATOCRIT 37.2 % (36.0-48.0); HEMOGLOBIN 12.6 g/dL (12-16); IMMATURE GRANULOCYTES 0.2 % (0-5); LYMPHOCYTES 15.4 % (15-50); MCHC 33.9 g/dL (31.0-37.0); MCV 91.4 fL (80.0-100.0); MEAN PLATELET VOLUME 9.7 fL (7.4-10.4); MONOCYTES 7.4 % (2-11); NEUTROPHILS 75.7 % (40-80); PLATELET COUNT 182 10x3/uL (130-400); RBC 4.07 10x6/uL (4.00-5.40); RDW 14.1 % (11.5-14.5); WBC 8.8 10x3/uL (4.8-10.8)
[2019-01-10 12:00] VITALS: BP 173/53
[2019-01-10 16:31] VITALS: BP 135/50
--- NOTE | 2019-01-10 17:30 | NUR ---
PT RESTING IN BED, DENIES ANY NEEDS AT THIS TIME, WILL CONT TO FOLLOW POC
[2019-01-10 18:31] VITALS: BP 135/50
--- NOTE | 2019-01-10 19:37 | NUR ---
PATIENT LAYING IN BED. PATIENT STATES SHE HAS BEEN HAVING DIARRHEA. PATIENT HAS NO OTHER COMPLAINTS AT THIS TIME. NO DISTRESS NOTED.
[2019-01-10 20:00] VITALS: BP 97/40
[2019-01-11] VITALS: BP 125/45
--- NOTE | 2019-01-11 03:32 | NUR ---
PATIENT LAYING IN BED. EYES CLOSED, CHEST RISING AND FALLING. NO DISTRESS NOTED.
[2019-01-11 04:00] VITALS: BP 132/43
[2019-01-11 05:39] LABS: BASOPHILS 0.3 % (0-2); EOSINOPHILS 2.5 % (0-7); HEMATOCRIT 34.2 % (36.0-48.0); HEMOGLOBIN 11.4 g/dL (12-16); IMMATURE GRANULOCYTES 0.3 % (0-5); LYMPHOCYTES 23.6 % (15-50); MCH 30.7 pg (26.0-34.0); MCHC 33.3 g/dL (31.0-37.0); MCV 92.2 fL (80.0-100.0); MEAN PLATELET VOLUME 9.8 fL (7.4-10.4); MONOCYTES 11.9 % (2-11); NEUTROPHILS 61.4 % (40-80); PLATELET COUNT 187 10x3/uL (130-400); RBC 3.71 10x6/uL (4.00-5.40); RDW 14.2 % (11.5-14.5); WBC 7.6 10x3/uL (4.8-10.8)
[2019-01-11 06:08] LABS: ANION GAP 15.2 mmol/L (8-16); CALCIUM 8.9 mg/dL (8.5-10.1); CARBON DIOXIDE 26.3 mmol/L (21.0-32.0); PHOSPHOROUS 8.7 mg/dL (2.5-4.9)
[2019-01-11 06:20] LABS: POTASSIUM - SERUM 3.5 mmol/L (3.5-5.1)
--- NOTE | 2019-01-11 07:33 | NUR ---
ALERT AND ORIENTED. NO DISTRESS NOTED. CL IN REACH.
--- NOTE | 2019-01-11 11:56 | NUR ---
EATING LUNCH. NO C/O PAIN. CL IN REACH.
[2019-01-11 13:53] VITALS: BMI 20.1
--- NOTE | 2019-01-11 14:34 | NUR ---
IN DIALYSIS AT THIS TIME.
--- NOTE | 2019-01-11 15:51 | NUR ---
PATIENT IS AMBULATORY. REFUSED SCD'S.
--- NOTE | 2019-01-11 16:12 | NUR ---
IN DIALYSIS- UNABLE TO ASSESS NEURO AT THIS TIME.
--- NOTE | 2019-01-11 17:25 | NUR ---
RETURNED FROM DIALYSIS. EATING DINNER. STABLE. ALERT AND ORIENTED. NO CHANGE IN ASSESSMENT.
--- NOTE | 2019-01-11 17:34 | NUR ---
DR SALAS LEFT MESSAGE TO REFER MEDS TO RENAL. SPOKE TO RENAL NURSE STALIN. SHE SAID SHE WILL REVIEW THEM TOMORROW.
[2019-01-11 17:47] VITALS: BP 131/39
[2019-01-11 17:56] VITALS: BP 175/56
--- NOTE | 2019-01-11 19:00 | NUR ---
PATIENT LAYING IN BED. PATIENT STATES SHE WOULD LIKE TO TAKE A SHOWER TONIGHT. NO COMPLAINTS AT THIS TIME. NO DISTRESS NOTED.
[2019-01-11 20:00] VITALS: BP 115/42
--- NOTE | 2019-01-11 22:30 | NUR ---
PATIENT TOOK SHOWER WITH HELP OF AIDE. PATIENT CURRENTLY LAYING IN BED AND HAS NO COMPLAINTS AT THIS TIME. NO DISTRESS NOTED.
[2019-01-12 00:30] VITALS: BP 146/44
--- NOTE | 2019-01-12 04:25 | NUR ---
I have reviewed this patient and I concur with the Shift Assessment completed by the Licensed Practical Nurse today this shift.
[2019-01-12 04:30] VITALS: BP 128/48
[2019-01-12 06:21] LABS: BASOPHILS 0.1 % (0-2); EOSINOPHILS 2.8 % (0-7); HEMATOCRIT 34.1 % (36.0-48.0); HEMOGLOBIN 11.3 g/dL (12-16); IMMATURE GRANULOCYTES 0.3 % (0-5); LYMPHOCYTES 18.2 % (15-50); MCH 30.8 pg (26.0-34.0); MCHC 33.1 g/dL (31.0-37.0); MCV 92.9 fL (80.0-100.0); MEAN PLATELET VOLUME 9.8 fL (7.4-10.4); MONOCYTES 12.2 % (2-11); NEUTROPHILS 66.4 % (40-80); PLATELET COUNT 181 10x3/uL (130-400); RBC 3.67 10x6/uL (4.00-5.40); RDW 14.2 % (11.5-14.5); WBC 7.5 10x3/uL (4.8-10.8)
--- NOTE | 2019-01-12 06:24 | NUR ---
THIS MORNING PATIENT IS SHOWING CONFUSION. PATIENT TRIED TO GO DOWN THE HALLWAY TO GO TO THE "PORCH". PATIENT GOTTEN BACK INTO BED WITH HELP OF STAFF. WHEN ASKED IF PATIENT KNEW WHERE SHE WAS SHE STATED "[facility] BUT NOT THE HOSPITAL PART." I EXPLAINED TO THE PATIENT THAT WE DID NOT HAVE A PORCH TO SIT ON AND THAT SHE WAS IN THE ACTUAL HOSPITAL." PATIENT CONTINUED TO SAY THAT SHE WAS IN THE CORRECTION PART OF THE HOSPITAL. I AGAIN EXPLAINED TO PATIENT THAT SHE WAS IN AN ACTUAL HOSPITAL AND THAT SHE FELL. PATIENT THEN TOLD ME SHE HAD COOKED EGGS AT HOME THIS MORNING BUT COULDN'T GET HOME TO EAT THEM. SEUN ELDRIDGE CALLED AND NOTIFIED. NEW ORDER FOR STAT CT WITHOUT CONTRAST. RADIOLOGY NOTIFIED AFTER ORDER PUT IN. WILL CONTINUE TO MONITOR.
--- NOTE | 2019-01-12 06:30 | NUR ---
PATIENT TO CT SCAN VIA WHEELCHAIR ACCOMPANIED BY STAFF.
--- NOTE | 2019-01-12 06:39 | NUR ---
PATIENT BACK FROM CT VIA WHEELCHAIR ESCORTED BY STAFF.
[2019-01-12 06:58] LABS: ANION GAP 16.4 mmol/L (8-16); CALCIUM 9.6 mg/dL (8.5-10.1); CARBON DIOXIDE 23.7 mmol/L (21.0-32.0); CREATININE - SERUM 5.3 mg/dL (0.6-1.3); MAGNESIUM - SERUM 2.1 mg/dL (1.8-2.4); PHOSPHOROUS 6.7 mg/dL (2.5-4.9); POTASSIUM - SERUM 4.1 mmol/L (3.5-5.1)
--- NOTE | 2019-01-12 07:45 | NUR ---
A/A/OX4. NO CONFUSION NOTED. DENIES ANY PAIN OR DISCOMFORT NO VOICED REQUESTS. LACERATION NOTED ABOVE LEFT EYE, ABRASION TO LEFT KNEE AND LEFT ELBOW WITH BANDAIDS IN PLACE, C/D/I. ASSESSMENT COMPLETED AND WILL CONTINUE POC. CALL LIGHT IN REACH, BED IN LOW POSITION AND KAILEY BED ALARM ON AND OPERATING PROPERLY.
[2019-01-12 07:48] VITALS: BP 153/54
[2019-01-12 13:15] VITALS: BP 132/55
--- NOTE | 2019-01-12 17:33 | NUR ---
I have reviewed this patient and I concur with the Shift Assessment completed by the Licensed Practical Nurse today this shift.
--- NOTE | 2019-01-12 19:52 | NUR ---
PT IN BED. DENIES NEEDS AT THIS TIME.
[2019-01-12 20:00] VITALS: BP 148/47
[2019-01-13 00:15] VITALS: BP 153/51
[2019-01-13 04:00] VITALS: BP 152/45
--- NOTE | 2019-01-13 05:40 | NUR ---
PT CONTINUES TO CLIMB OOB DESPITE MULTIPLE UNSUCCESSFUL ATTEMPTS AT REORIENTATION. PT BELIEVES SHE IS IN A HOUSE. PT DISREGARDS KAILEY ALARM. PT MOVED TO NURSES STATION FOR CLOSER OBSERVATION.
[2019-01-13 06:55] LABS: BASOPHILS 0.3 % (0-2); HEMATOCRIT 35.1 % (36.0-48.0); HEMOGLOBIN 11.6 g/dL (12-16); IMMATURE GRANULOCYTES 0.1 % (0-5); LYMPHOCYTES 18.9 % (15-50); MCH 30.9 pg (26.0-34.0); MCV 93.6 fL (80.0-100.0); MEAN PLATELET VOLUME 9.6 fL (7.4-10.4); MONOCYTES 9.8 % (2-11); NEUTROPHILS 67.9 % (40-80); PLATELET COUNT 167 10x3/uL (130-400); RBC 3.75 10x6/uL (4.00-5.40); RDW 14.2 % (11.5-14.5)
[2019-01-13 07:04] LABS: ANION GAP 13.8 mmol/L (8-16); CARBON DIOXIDE 26.4 mmol/L (21.0-32.0); CREATININE - SERUM 5.1 mg/dL (0.6-1.3); MAGNESIUM - SERUM 2.1 mg/dL (1.8-2.4); PHOSPHOROUS 5.7 mg/dL (2.5-4.9)
[2019-01-13 07:06] LABS: POTASSIUM - SERUM 5.2 mmol/L (3.5-5.1)
--- NOTE | 2019-01-13 07:30 | NUR ---
A/A/OX3. UNSURE OF DATE AND TIME OF DAY AND IS CONSTANTLY LOOKING FOR SOME CLOTHES SHE SAID SHE BROUGHT UP HERE. OTHER SANTANA SHE IS ORIENTED AND CAN CARRY ON A REASONABLE CONVERSATION. ASSESSMENT COMPLETED AND WILL CONTINUE POC. CALL LIGHT IN REACH, BED IN LOW POSITION AND BED ALARM ON.
[2019-01-13 08:12] VITALS: BP 167/53
--- NOTE | 2019-01-13 12:51 | NUR ---
Nutrition follow-up: Pt with noted confusion Diet: Renal ADA PO intake ~80% of meals Labs reviewed; K, PO4 elevated No BM charted since admit Wt: 102# PO intake good at this time. Due to pts nutritional status at time of admit pt may not have access to and/or prepare food at home. Will continue to monitor patients progress.
--- NOTE | 2019-01-13 13:58 | NUR ---
I have reviewed this patient and I concur with the Shift Assessment completed by the Licensed Practical Nurse today this shift.
--- NOTE | 2019-01-13 15:32 | NUR ---
UP IN CHAIR AT BEDSIDE READING NEWSPAPER. NO APPARENT PROBLEMS AND NO REQUESTS VOICED.
[2019-01-13 15:43] VITALS: BP 157/97
--- NOTE | 2019-01-13 16:45 | MORECARE ---
CASE MANAGEMENT DISCHARGE SUMMARY PATIENT: THUAN TAPIA UNIT: [id number] ADM DATE: 01/11/19 AGE: 88 : 32 SEX: F ROOM/BED: D.2139 AUTHOR: TORI PUENTE PHYSICIAN: REFERRING PHYSICIAN: DILAN SALAS MD DATE OF SERVICE: 01/13/19 Discharge Plan Patient Name: THUAN TAPIA Facility: [facility]:[place] : 1930 Planned Disposition: Home with Home Health Anticipated Discharge Date: 01/13/19 Discharge Date: Expected LOS: 2 Initial Reviewer: [email or web address] Initial Review Date: 01/13/2019 Generated: 01/13/19 5:45 pm Coverage Notice Reviewer: [email or web address] - Mark Benavidez Notice Issued Date-Time: 01/13/2019 16:20 Notice Type: IM Discharge Notice Notice Delivered To: Patient Relationship to Patient: Plaster Patternmaker Name: Delivery Method: HAND - Hand Delivered Shawna Days: Prior Verbal Notification: Recipient Understood Notice: Yes Recipient Signature: Yes Med Rec Note Co-signed by Attending: Coverage Notice Comment: Patient Name: THUAN TAPIA Page [id number] at 1645 All edits/amendments must be made on the electronic document DICTATION DATE: 01/13/191643 FILM BOOKER: DEE 01/13/191643 RPT#: [id number] DC DATE: STATUS: ADM IN [facility] [address] [place] [address] END OF REPORT
--- NOTE | 2019-01-13 16:55 | MORECARE ---
CASE MANAGEMENT DISCHARGE SUMMARY PATIENT: THUAN TAPIA UNIT: [id number] ADM DATE: 01/11/19 AGE: 88 : 32 SEX: F ROOM/BED: D.5815 AUTHOR: CINDI,DOC PHYSICIAN: REFERRING PHYSICIAN: DILAN SALAS MD DATE OF SERVICE: 01/13/19 Discharge Plan Patient Name: THUAN TAPIA Facility: [facility]:[place] : 1930 Planned Disposition: Home with Home Health Anticipated Discharge Date: 01/13/19 Discharge Date: Expected LOS: 2 Initial Reviewer: [email or web address] Initial Review Date: 01/13/2019 Generated: 01/13/19 5:55 pm Comments DCP- Discharge Planning Updated by [email or web address]: Mark Benavidez on 01/13/19 3:[address] Patient Name: THUAN TAPIA Admission Status: ER Accout number: [id number] Admission Date: 01-11-2019 : 1930 Admission Diagnosis: Attending: DILAN SALAS Current LOS: 2 Anticipated DC Date: 01-13-2019 Planned Disposition: Home with Home Health Primary Insurance: MEDICARE A & B PLANNED EXTERNAL PROVIDER: [facility] Discharge Planning Comments: CM MET WITH PT IN ROOM TO DISCUSS DISCHARGE PLANNING AND NEEDS. PT REPORTS LIVING AT HOME INDEPENDENTLY AND ALONE. PT HAS ROLLATOR WALKER, BEDSIDE COMMODE AND SHOWER CHAIR WITH NO MEDICAL EQUIPMENT PROVIDER PREFERENCE. PT HAS [facility] FOR NURSING AND PHYSICAL THERAPY. CM DISCUSSED AVAILABILITY OF HOME HEALTH, REHAB SERVICES AND MEDICAL EQUIPMENT. PT DENIES DISCHARGE NEEDS OTHER THAN HOME HEALTH RESUMPTION, REPORTS SHE WILL CALL A [employer] TO PICK HER UP FOR DISCHARGE HOME. PT HAS PHONE NUMBER TO [employer], HAS FUNDS FOR TRANSPORT AND HAS KEYS TO GET INTO HER HOME. IMPORTANT MESSAGE FROM MEDICARE PROVIDED AND EXPLAINED. CHOICE FOR [facility] SIGNED. CM VERIFIED DISCHARGE WITH CHENTE ESCAMILLA. CM CALLED FOR RESUPTION OF HOME HEALTH SERVICES, NOTIFYING LUCIO OF [facility] AT [phone], FAXED DISCHARGE INFORMATION TO [facility] AT [phone] Buddhist Monk: Mark Benavidez DCPIA - Discharge Planning Initial Assessment Updated by [email or web address]: Mark Benavidez on 01/13/19 4:45 pm * Is the patient Alert and Oriented? Yes * How many steps to enter\exit or inside your home? NONE * PCP DR. JIM HOBBS * Pharmacy [facility] * Preadmission Environment Home Alone * ADLs Independent * Equipment Bedside Commode Rolling Walker Shower Chair * Other Equipment ROLLATOR WALKER , NO MEDICAL EQUIPMENT PROVIDER PREFERENCE * List name and contact numbers for known caregivers / representatives who currently or will assist patient after discharge: GABE LOVELACE, * Verbal permission to speak to the caregivers and representatives has been obtained from the patient. N/A * Community resources currently utilized Home Health * Please name any agencies selected above. [facility], NURSING AND PHYSICAL THERAPY * Additional services required to return to the preadmission environment? No * Can the patient safely return to the preadmission environment? Yes * Has this patient been hospitalized within the prior 30 days at any hospital? No External Providers External Provider: [facility] Next Contact Date: 01/13/2019 Service Request Date: Service Type: Resolution: Reviewer: Comments: Coverage Notice Reviewer: AARON Benavidez Notice Issued Date-Time: 01/13/2019 16:20 Notice Type: IM Discharge Notice Notice Delivered To: Patient Relationship to Patient: Penology Professor Name: Delivery Method: HAND - Hand Delivered Shawna Days: Prior Verbal Notification: Recipient Understood Notice: Yes Recipient Signature: Yes Med Rec Note Co-signed by Attending: Coverage Notice Comment: Reviewer: AARON Benavidez Notice Issued Date-Time: 01/13/2019 16:20 Notice Type: Patient Choice Letter Notice Delivered To: Patient Relationship to Patient: Penology Professor Name: Delivery Method: HAND - Hand Delivered Shawna Days: Prior Verbal Notification: Recipient Understood Notice: Yes Recipient Signature: Yes Med Rec Note Co-signed by Attending: Coverage Notice Comment: [facility] Last DP export: 01/13/19 3:45 p Patient Name: THUAN TAPIA Page 11044 at 1659 All edits/amendments must be made on the electronic document DICTATION DATE: 01/13/191654 CUSHION COVER INSPECTOR: DEE 01/13/191654 RPT#: [id number] DC DATE: STATUS: ADM IN [facility] [address] [facility] [place] [address] END OF REPORT
--- NOTE | 2019-01-13 17:38 | NUR ---
DISCHARGE INSTRUCTIONS REVIEWED WITH PT AND VERBALIZES UNDERSTANDING. LEFT FLOOR AMB AT HER REQUEST WITH DECK ENGINEER AND LEFT FACILITY VIA TAXI. MONITOR AND SL REMOVED WITH TIP INTACT.
== END 2019-01-13 17:39 | disposition home health service (06) | DRG 82 ==
LOC: D.ER 08:35 → D.M2 12:32 → D.MS 12:32 → OBSVTIME 12:33 → D.M2 13:01
PROVIDERS: Family Medicine; ADMIT Family Medicine; ATTEND Family Medicine
PROC: 5A1D70Z Performance of Urinary Filtration, Intermittent, Less than 6 Hours Per Day (ICD-10-PCS; principal; 2019-01-11)
DX: S06.5X9A Traumatic subdural hemorrhage with loss of consciousness of unspecified duration, initial encounter (principal); N18.6 End stage renal disease; I12.0 Hypertensive chronic kidney disease with stage 5 chronic kidney disease or end stage renal disease; W06.XXXA Fall from bed, initial encounter; E11.22 Type 2 diabetes mellitus with diabetic chronic kidney disease; K21.9 Gastro-esophageal reflux disease without esophagitis; E03.9 Hypothyroidism, unspecified; E11.40 Type 2 diabetes mellitus with diabetic neuropathy, unspecified; S01.81XA Laceration without foreign body of other part of head, initial encounter; I48.91 Unspecified atrial fibrillation

== ENCOUNTER 2019-01-14 17:42 | Emergency (ER) | payer MEDICARE, OTHER ==
[~2019-01-14] VITALS: Ht 152.4 cm; Wt 46.8 kg
[2019-01-14 17:50] VITALS: Ht 152.4 cm; Wt 46.8 kg
[2019-01-14 18:52] LABS: CARBON DIOXIDE 26.9 mmol/L (21.0-32.0); CREATININE - SERUM 5.7 mg/dL (0.6-1.3); POTASSIUM - SERUM 4.9 mmol/L (3.5-5.1)
[2019-01-14 21:10] VITALS: BP 125/78
== END 2019-01-14 21:12 | disposition home or self-care (01) ==
LOC: D.ER 17:42
PROVIDERS: Family Medicine
DX: H53.9 Unspecified visual disturbance (principal); Z99.2 Dependence on renal dialysis; S09.90XA Unspecified injury of head, initial encounter; X58.XXXA Exposure to other specified factors, initial encounter; Y93.89 Activity, other specified; Y92.89 Other specified places as the place of occurrence of the external cause

== ENCOUNTER 2019-03-30 08:36 | Inpatient (IN) | payer MEDICARE, OTHER ==
[~2019-03-30] VITALS: Ht 152.4 cm; Wt 49.1 kg
[2019-03-30] VITALS (17 sets, daily range): BP systolic 122–183; BP diastolic 39–109; BMI 19.3
--- NOTE | ~2019-03-30 | HEMODYNAMI ---
PATIENT:THUAN TAPIA MEDICAL RECORD: [id number] : 34 LOCATION:[facility] D.2304 ADMISSION DATE: 03/30/19 Generatedon:04/03/20199:42 Patient name: THUAN TAPIA Patient #: [id number] : 1930 Date of study: 04/03/2019 Page: Of Hemodynamic Procedure Report Patient Data Patient Demographics Procedure consent was obtained First Name: THUAN Gender: Female Last Name: WILLIE : 1930 Patient #: [id number] Age: 88 year(s) Race: SSN: [id number] Additional ID: [id number] Contact details [address]: [address] [place] [address] State: [place] City: [place] Zip code: [address] Admission Admission Data Admission Date: 03/30/2019 Admission Time: 10:36 Arrival Date: 03/30/2019 Arrival Time: 10:36 Admit Source: Emergency Insurance Payor: Medicare department Room #: D.2304 Height (in.): 59.84 BSA: 1.48 (m2) Height (cm.): 152 BMI: 22.94 (kg/m2) Weight (lbs.): 116.85 Weight (kg.): 53 Lab Results Lab Result Date: 04/03/2019 Lab Result Time: 0:00 Biochemistry Name Units Result Min Max BUN mg/dl 77 --(----)-* 7 18 Creatinine mg/dl 5.7 --(----)-* 0.6 1.3 eGFR ml/min 7.779287 *-(----)-- 90 120 NONAFRICAN CBC Name Units Result Min Max Hemoglobin g/dl 11.8 *-(----)-- 13.5 17.5 Procedure Procedure Types Cath Procedure Diagnostic Procedure LHC LHC w/Coronaries Sedation Charges Moderate Sedation up to 15 minutes Procedure Description Procedure Date Procedure Date: 04/03/2019 Procedure Start Time: 9:30 Procedure End Time: 9:41 Procedure Staff Name Function Itz Bolaños MD Performing Physician Petrona Holloway RT Monitor Virgie Murray RT Scrub Kaity Agustin RN Nurse Junior Tripp RT Sitecore Developer Procedure Data Cath Procedure Fluoroscopy Diagnostic fluoroscopy Total fluoroscopy Time: 2.5 time: 2.5 min min Diagnostic fluoroscopy Total fluoroscopy dose: 412 dose: 412 mGy mGy Contrast Material Contrast Material Type Amount (ml) Isovue 300 61 Entry Location Entry Primary Successful Side Size Upsize Upsize Entry Closure Succes sful Closure Location (Fr) 1 (Fr) 2 (Fr) Remarks Device Remarks Femoral Right 5 Fr Exoseal artery Estimated blood loss: 5 ml Diagnostic catheters Device Type Used For End Catheter Placement MULTIPACK JL 4.0 5Fr Left Coronary catheter Angiography MULTIPACK 3DRC 5Fr Right Coronary catheter Angiography MULTIPACK Pigtail 5 Fr LV Angiography catheter Procedure Complications No complications Procedure Medications Medication Administration Route Dosage 0.9% NaCl I.V. Oxygen etCO2 Nasal cannula 2 l/min Lidocaine 2% added to field 20 Heparin Flush Bag added to field 2 bags (1000units/500ml NS) Versed I.V. 1 mg Fentanyl I.V. 25 mcg Hemodynamics Rest BSA: 1.48 (m2) HGB: 11.8 (g/dl) O2 Consumption: Estimated: 142.66 (ml/min) O2 Co nsumption indexed: Estimated:96.39 (ml/min/m) Heart Rate: 90 (bpm) Pressure Samples Time Site Value (mmHg) Purpose Heart Use Rate(bpm) 9:37 LV 102/5,7 Snapshot 50 9:38 AO 136/34(73) Pullback 73 9:38 LV 107/15,16 Pullback 73 Gradients Valve Time Site 1 Site 2 Mean SEP/DFP Peak To Heart Use (mmHg) (sec/min) Peak Rate (mmHg) (bpm) Aortic 9:38 LV AO 0 5 0 73 107/15,16 136/34(73) Calculations Valve P-P Mean Valve Index Valve Source Name Gradient Area Flow (cm2) Aortic 0 0 0 0 Snapshots Pre Cath Intra NCS Post Cath Vital Signs Time Heart Resp SPO2 etCO2 NIBP (mmHg) Rhythm Pain Sedation Rate (ipm) (%) (mmHg) Status Level (bpm) 9:12:46 102 19 98 12.8 Measuring A-Fib 0 (11) 10(A) , No pain 9:22:44 94 16 85 30.4 127/63(99) A-Fib 0 (11) 10(A) , No pain 9:26:56 89 15 97 24.1 117/64(95) A-Fib 0 (11) 9(A) , No pain 9:31:08 92 14 99 20.3 120/55(83) A-Fib 0 (11) 9(A) , No pain 9:35:18 89 16 99 29 127/55(94) A-Fib 0 (11) 9(A) , No pain 9:39:25 85 16 99 10.5 120/68(100) A-Fib 0 (11) 10(A) , No pain Medications Time Medication Route Dose Verified Delivered Reason Notes Effe ctiveness by by 9:11:20 0.9% NaCl I.V. kvo Itz Kaity used for Miky Vamsi procedure MD ALARCON 9:11:26 Oxygen etCO2 2 Itz Kaity used for Nasal l/min Miky Vamsi procedure cannula RN 9:11:31 Lidocaine 2% added 20ml Itz Mobley for local to vial [facility] anesthetic field MD RECINOS 9:11:36 Heparin Flush added 2 Itz Mobley [facility] (1000[facility]/500ml field MD RECINOS NS) 9:23:41 Versed I.V. 1 mg Itz Longoriayla for MikyMarcus Agustin sedation MD ALARCON 9:23:44 Fentanyl I.V. 25 Itz Andradea for mcg Miky Vamsi sedation instructor of education Log Time Note 8:30:35 Diagnostic Cath Status : Urgent 8:31:09 Informed consent obtained and on chart 8:33:29 Admit Source: Emergency department 8:33:33 Arrival Date: 03/30/2019 10:36:00 AM 8:33:40 Insurance Payor : Medicare 8:33:56 Patient Height : 59.84 inches 8:34:05 Patient Weight : 116.85 lbs 8:36:04 Lab Result : BUN 77 mg/dl 8:36:04 Lab Result : eGFR NONAFRICAN 7.831994 ml/min 8:36:04 Lab Result : Hemoglobin 11.8 g/dl 8:36:04 Lab Result : Creatinine 5.7 mg/dl 8:46:20 ACC Patient presents with Stable Angina CCS Anginal Class 2--Slight limitation of ordinary activity. 8:47:15 ACCPatient has been prescribed/administered the following anti-anginal medication within the last 2 weeks: None 8:47:20 Procedure Status Urgent Heart Cath (IP). 8:47:23 Junior Bradleyley RT(R) sent for patient. Start room use. 8:47:25 Time tracking: Regular hours (M-F 7:00 - 5:00) 8:47:29 Plan of Care:Hemodynamics will remain stable., Cardiac rhythm will remain stable., Comfort level will be maintained., Respiratory function will remain adequate., Patient/ family verbilizes understanding of procedure., Procedure tolerated without complication., Recovers from procedure without complications.. 9:04:27 Patient received from ICU to [facility] 2 Alert and oriented. Tansferred to table in Supine position. 9:04:28 Warm blankets applied, and francisco hugger turned on for patient comfort. 9:04:28 Correct patient and procedure confirmed by team. 9:04:29 ECG and BP/O2 sat monitors applied to patient. 9:10:56 Vital chart was started 9:10:59 Baseline sample Acquired. 9:11:11 Rhythm: sinus tachycardia 9:11:13 Full Disclosure recording started 9:11:17 H&P Date Dictated: 04/03/2019 New H&P dictated by physician.. 9:11:18 Pre-procedure instructions explained to patient. 9:11:19 Pre-op teaching completed and patient verbalized understanding. 9:11:20 0.9% NaCl kvo I.V. was administered by Kaity Agustin RN; used for procedure; 9:11:21 Family in patients room. 9:11:22 Patient NPO since Midnight. 9:11:26 Oxygen 2 l/min etCO2 Nasal cannula was administered by Kaity Agustin RN; used for procedure; 9:11:31 Lidocaine 2% 20ml vial added to field was administered by Itz Bolaños MD; for local anesthetic; 9:11:36 Heparin Flush Bag (1000units/500ml NS) 2 bags added to field was administered by Itz Bolaños MD; used for procedure; 9:11:52 Is the patient allergic to Iodine/contrast media? No. 9:11:53 Was the patient premedicated? No 9:12:00 Is patient on blood thinner?No 9:12:07 Patient diabetic? Yes. 9:12:08 If diabetic: On Metformin? No 9:12:10 Previous problem with sedation/anesthesia? No ? 9:12:12 Snore? Yes 9:12:13 Sleep apnea? No 9:12:14 Deviated septum? No 9:12:14 Opens mouth fully? Yes 9:12:15 Sticks out tongue? Yes 9:12:17 Airway obstruction? No ? 9:12:23 Dentures? Yes uppers in tight 9:12:28 Pre procedure: right dorsailis pedis pulse 1+ Palpable, but thready & weak; easily obliterated 9:12:30 Pre procedure: left dorsailis pedis pulse 1+ Palpable, but thready & weak; easily obliterated 9:12:40 IV patent on arrival in right antecubital with 0.9% NaCl at KVO. 9:12:42 Lab results completed and on chart. 9:15:06 Right groin area was prepped with chlora-prep and draped in sterile fashion 9:15:06 Alarms reviewed by R. N. 9:15:07 Sharps counted by scrub and verified by R.N. 9:15:07 Physician arrived 9:15:08 --------ALL STOP TIME OUT------ 9:15:08 Final Timeout: patient, procedure, and site verified with staff and physician. All members of the team are in agreement. 9:15:12 Right groin site verified by team. 9:15:15 Fire Safety Assessment: A--An alcohol-based skin anteseptic being used preoperatively., C--Open oxygen or nitrous oxide is being used., D--An ESU, laser, or fiber-optic light is being used. 9:15:18 Physical assessment completed. ASA score P 2 - A patient with mild systemic disease as per Itz Bolaños MD. 9:15:22 5) <15 or on dialysis Very severe, or end stage kidney failure. 9:15:26 Maximum allowable contrast dose (3.7 X eGFR X 0.75)19 ml. 9:15:30 Sedation plan: IV Moderate Sedation Medication:Versed, Fentanyl 9:15:35 Use device set Femoral Dx 9:15:36 ACIST Syringe (62227) opened to sterile field. 9:15:36 Bag Decanter (2002S) opened to sterile field. 9:15:37 Medline Cath Pack ([id number]) opened to sterile field. 9:15:38 ACIST Hand Control (22936) opened to sterile field. 9:15:38 ACIST Manifold (01113) opened to sterile field. 9:15:38 DIAGNOSTIC Multipack 5Fr catheter set (SN2239) opened to sterile field. 9:15:39 Tegaderm 4 x 4 (1626W) opened to sterile field. 9:15:41 SHEATH 5FR [place] (ZMJ049) opened to sterile field. 9:15:41 EMERALD Guide Wire (499-443) opened to sterile field. 9:23:41 Versed 1 mg I.V. was administered by Kaity Agustin RN; for sedation; 9:23:44 Fentanyl 25 mcg I.V. was administered by Kaity Agustin RN; for sedation; 9:30:13 Procedure started. 9:30:17 Local anesthetic to right femoral artery with Lidocaine 2% by Itz Bolaños MD.INITIAL ACCESS ONLY 9:30:26 A 5 Fr sheath was inserted into the Right Femoral artery 9:31:33 A MULTIPACK JL 4.0 5Fr catheter was advanced over the wire and used for Left Coronary Angiography. 9:31:40 Zero performed for pressure channel P1 9:31:45 Zero performed for pressure channel P1 9:32:58 LCA angiography performed. 9:33:01 Injector settings: Ml/sec: 3, Volume: 6, 9:34:19 Catheter removed. 9:34:31 A MULTIPACK 3DRC 5Fr catheter was advanced over the wire and used for Right Coronary Angiography. 9:35:41 RCA angiography performed. 9:35:44 Injector settings: Ml/sec: 3, Volume: 6, 9:35:46 Catheter removed. 9:35:54 A MULTIPACK Pigtail 5 Fr catheter was advanced over the wire and used for LV Angiography. 9:37:36 LV hemodynamics recorded. 9:37:37 LV gram done using VILLA 9:37:40 Injector settings: Ml/sec: 5, Volume: 15, 9:38:12 EF : 25 % 9:38:18 Catheter removed. 9:38:21 EXOSEAL 5Fr (EX500) opened to sterile field. 9:38:30 Sheath removed intact; hemostasis achieved with Exoseal to the Right Femoral artery. 9:38:37 ACCDominant side:Right 9:38:51 Procedure ended.(Physican Out) 9:39:30 Fluoroscopy time 02.50 minutes. 9:39:47 Fluoroscopy dose: 412 mGy 9:39:47 Flurop Dose total: 412 9:39:54 Dose Area Product 12606 mGy/cm. 9:39:58 Contrast amount:Isovue 300 61ml. 9:40:00 Sharps counted by scrub and verified by R.N. 9:40:08 Insertion/operative site no bleeding no hematoma. 9:40:11 Post-op/insertion site Right Femoral artery dressed using a 4 x 4 and Tegaderm. 9:40:20 Post right femoral artery:stable 9:40:21 Post Procedure Pulses reassessed and unchanged 9:40:24 Post procedure rhythm: unchanged. 9:40:27 Estimated blood loss: 5 ml 9:40:28 Post procedure instruction explained to patient.Patient verbalizes understanding. 9:40:28 Patient needs reinforcement of post procedure teaching. 9:40:45 Procedure type changed to Cath procedure, Diagnostic procedure, LHC, LHC w/Coronaries, Sedation Charges, Moderate Sedation up to 15 minutes 9:40:47 Procedure and supply charges have been captured, reviewed, submitted and are correct. 9:40:56 Procedure Complication : No complications 9:40:58 Vital chart was stopped 9:40:59 See physician's report for complete and final results. 9:41:04 Report given to ICU. 9:41:06 Patient transfered to ICU with Stretcher. 9:41:11 Procedure ended. 9:41:11 Full Disclosure recording stopped 9:41:16 End room use (Document Last) Device Usage Item Name Manufacture Quantity Catalog Hospital Part Current Minimal L ot# / Number Charge Number Stock Stock Serial# Code JENA Acist 1 02924 037408 220014 341081 20 Syringe Compass [employer] Holdings (46211) Systems Inc Bag Microtek 1 373577 08404 001606 5 Decanter Medical Inc. () Medline Medline 1 [id number] 475115 08362 261658 5 Cath Pack ([id number]) ACIST Hand Acist 1 47536 483020 573481 380015 5 Control Medical (56171) Systems Inc ACIST Acist 1 42751 662792 248513 921880 5 Manifold Medical (41255) Systems Inc DIAGNOSTIC Cardinal 1 [id number] 888241 60707 393052 30 Multipack Health 5Fr catheter set (AG3933) Tegaderm 4 3M 1 1626W 660359 555511 638041 5 x 4 (1626W) SHEATH 5FR Terumo 1 SSI350 958500 220378 921152 5 [place] (NBD418) EMERALD Cardinal 1 145-649 930971 856680 439412 5 Guide Wire Health (642-987) MULTIPACK Cardinal 1 017191 5 JL 4.0 5Fr Health catheter MULTIPACK Cardinal 1 902532 5 3DRC 5Fr Health catheter MULTIPACK Cardinal 1 510429 5 Pigtail 5 Health Fr catheter EXOSEAL 5Fr Cardinal 1 EX500 702358 749012 729725 10 (EX500) Health Signature Audit [place] Stage Time Signature Unsigned Intra-Procedure 04/03/2019 Petrona Holloway 9:42:16 AM RT(R) Signatures Performing Physician : Signature : Itz Bolaños MD Date : Time : Monitor : Petrona Holloway RT Signature : Date : Time : Nurse : Kaity Agustin RN Signature : Date : Time : [facility] [address] [place] [address]
--- NOTE | 2019-03-30 09:00 | NUR ---
PCXR AND RIGHT HIP XRAYS COMPLETED AT BS
--- NOTE | 2019-03-30 09:10 | NUR ---
LABS DRAWN INCLUDING 1ST SET OF BCS
--- NOTE | 2019-03-30 09:14 | NUR ---
TO CT VIA STRETCHER WITH TECH
[2019-03-30 09:29] LABS: BASOPHILS 0.3 % (0-2); EOSINOPHILS 0 % (0-7); HEMATOCRIT 41.4 % (36.0-48.0); HEMOGLOBIN 13.7 g/dL (12-16); IMMATURE GRANULOCYTES 0.5 % (0-5); LYMPHOCYTES 7.5 % (15-50); MCH 30.9 pg (26.0-34.0); MCHC 33.1 g/dL (31.0-37.0); MCV 93.2 fL (80.0-100.0); MEAN PLATELET VOLUME 11.2 fL (7.4-10.4); MONOCYTES 4.7 % (2-11); PLATELET COUNT 129 10x3/uL (130-400); RBC 4.44 10x6/uL (4.00-5.40); RDW 14.3 % (11.5-14.5); WBC 15.3 10x3/uL (4.8-10.8)
[2019-03-30 09:43] LABS: APTT 24.9 SECONDS (22.8-39.4); INR 1.03 (0.85-1.17)
[2019-03-30 09:47] LABS: ALKALINE PHOSPHATASE 81 U/L (46-116); ALT (SGPT) 13 U/L (10-68); BILIRUBIN - TOTAL 0.87 mg/dL (0.2-1.3); CALC OSMOLALITY 293 mosm/kg (275-300); CALCIUM 10.3 mg/dL (8.5-10.1); CARBON DIOXIDE 27.5 mmol/L (21.0-32.0); CHLORIDE - SERUM 98 mmol/L (98-107); CREATININE - SERUM 4.2 mg/dL (0.6-1.3); POTASSIUM - SERUM 5.1 mmol/L (3.5-5.1); PROTEIN - SERUM 7.4 g/dL (6.4-8.2); SODIUM 138 mmol/L (136-145); UREA NITROGEN 29 mg/dL (7-18); eGFR NON AFRICAN AMERICAN 11 mL/min (90-120)
[2019-03-30 09:48] LABS: GLUCOSE 323 mg/dL (74-106)
--- NOTE | 2019-03-30 09:48 | NUR ---
URINE SPECIMEN OBTAINED, LABELED AT BS AND SENT TO LAB
[2019-03-30 10:03] LABS: CREATINE KINASE 109 UL (21-215)
[2019-03-30 10:12] LABS: APPEARANCE CLEAR (CLEAR); BILIRUBIN NEGATIVE (NEGATIVE); COLOR STRAW (YELLOW); GLUCOSE 1000 mg/dL (NEGATIVE); KETONE NEGATIVE (NEGATIVE); NITRITE NEGATIVE (NEGATIVE); PROTEIN 2+ mg/dL (NEGATIVE); SPECIFIC GRAVITY 1.005 (1.005-1.020); UROBILINOGEN NORMAL (NORMAL)
[2019-03-30 10:14] LABS: BACTERIA MANY /hpf (NONE SEEN); EPITHELIAL CELLS 0-5 /hpf (0-5); WHITE CELLS - URINE 0-5 /hpf (0-5)
--- NOTE | 2019-03-30 10:14 | NUR ---
LAB CALLED WITH CRITICAL TROPONIN 3.14 DR DENTON NOTIFIED
--- NOTE | 2019-03-30 10:30 | NUR ---
ATTEMPTED TO GIVE SIPS OF WATER TO ADMIN PO MED. PT SWALLOWED SMALL SIPS THEN STARTED COUGHING.. MED HELD AND NOTIFIED
--- NOTE | 2019-03-30 11:50 | NUR ---
REPORT CALLED TO DORIAN ZELAYA BY [facility]AB[facility] FORMAT
--- NOTE | 2019-03-30 12:00 | NUR ---
RECEIVED PT FROM ER. HOOKED UP TO MONITORS. VSS. CHG BATH GIVEN. WILL CHECK ORDERS
--- NOTE | 2019-03-30 12:00 | NUR ---
TRANSPORTED TO 2304, CONDITION STABLE
--- NOTE | 2019-03-30 12:34 | NUR ---
DR. GARCIA CONSULTED AND VISITED PATIENT. DR. RIBERA ALSO SEEING PATIENT.
--- NOTE | 2019-03-30 13:54 | NUR ---
EKG ON PATIENT--A-FIB WITH RVR. PAGED DR. GARCIA.
--- NOTE | 2019-03-30 14:31 | CN ---
PATIENT NAME:THUAN SCHOFIELD MEDICAL RECORD: [id number] : 34 [facility] DATE: 03/30/19 ACCOUNT: [id number] CONSULTING PHYSICIAN: GASTON GARCIA MD REFERRING PHYSICIAN: KINA RIBERA MD DATE OF CONSULTATION: 03/30/2019 CARDIOLOGY CONSULT DIAGNOSES: 1. Altered mental status. 2. Pneumonia. 3. Shortness of breath, dyspnea on exertion. 4. Increased troponin. 5. Hypertension. 6. Paroxysmal atrial fibrillation. 7. Hyperlipidemia. 8. End-stage renal failure, on dialysis. HISTORY OF PRESENT ILLNESS: Mrs. Schofield has only cardiac history of dysrhythmia and hypertension, for which she is on digoxin and diltiazem. She has no history of ischemic heart disease. She was found in the floor with altered mental status, found to have pneumonia. Her troponin is elevated. She denies any chest pain or chest discomfort. She does have cough and she has had fevers. She has an EKG that is sinus tachycardia, no dysrhythmias. She has no acute ST-T abnormalities on the EKG. PHYSICAL EXAMINATION: CONSTITUTIONAL/GENERAL APPEARANCE: Well nourished, well developed, appears stated age. EYES: Lids and conjunctivae noninjected. No discharge. No pallor. ENT: Lips within normal limit. No cyanosis. No pallor. NECK: Carotid arteries, bilateral normal upstroke. No bruits. No thrills. No jugular venous pressure or distention. CERVICAL LYMPH NODES: Nontender. Nonenlarged. THYROID: Not enlarged. No nodules. CARDIOVASCULAR: Precordial exam, nondisplaced. No heaves or pericardial thrills. Rate and rhythm, regular. Heart sounds, normal S1, normal S2. No S3, no gallop, no rub. Systolic murmur, not heard. Diastolic murmur, not heard. RESPIRATORY: Respiratory effort, unlabored. Normal curvature. No thoracic deformity. No chest wall tenderness. Percussion, resonant. Auscultation, clear. No wheezes, no rales, no rhonchi. ABDOMEN: Soft, nondistended, nontender. No abdominal pain, no vomiting and normal appetite. MUSCULOSKELETAL: No joint tenderness, normal gait, normal tone. SKIN: Warm and dry. OVERALL IMPRESSION: Elevated troponin, no EKG changes, renal failure. This very well may be demand ischemia. We will get an echocardiogram, serial troponins. Further care depends upon the findings of the echocardiogram and the serial troponins. TRANSINT:[id number] Voice Confirmation ID: [id number] DOCUMENT ID: [id number] CONSULT REPORT [id number] THUAN SCHOFIELD, GASTON RECINOS at 1431 CC: [id number] DICTATION DATE: 03/30/19 1242 NIGHT CLERK AUDITOR: 03/30/19 1250 ADM IN [place] [id number] [place] [address]
--- NOTE | 2019-03-30 15:24 | MORECARE ---
CASE MANAGEMENT DISCHARGE SUMMARY PATIENT: THUAN TAPIA UNIT: [id number] ADM DATE: 03/30/19 AGE: 88 : 32 SEX: F ROOM/BED: D.2304 AUTHOR: TORI PUENTE PHYSICIAN: REFERRING PHYSICIAN: KINA RIBERA MD DATE OF SERVICE: 03/30/19 Discharge Plan Patient Name: THUAN TAPIA [facility] [facility] 1930 Planned Disposition: Home Anticipated Discharge Date: Discharge Date: Expected LOS: Initial Reviewer: [email or web address] Initial Review Date: 03/30/2019 Generated: 03/30/19 4:24 pm DCPIA - Discharge Planning Initial Assessment Updated by [email or web address]: Nimisha Parada on 03/30/19 3:18 pm * Is the patient Alert and Oriented? Yes * How many steps to enter\exit or inside your home? ramp * PCP Germain * Pharmacy [facility] * Preadmission Environment Home Alone * ADLs Independent * Equipment Walker * List name and contact numbers for known caregivers / representatives who currently or will assist patient after discharge: Manjit tsangew - [phone] Paulydamari Bravo adamaris - [phone] * Verbal permission to speak to the caregivers and representatives has been obtained from the patient. Yes * Community resources currently utilized Home Health * Please name any agencies selected above. [facility] * Additional services required to return to the preadmission environment? No * Can the patient safely return to the preadmission environment? Yes * Has this patient been hospitalized within the prior 30 days at any hospital? No Patient Name: THUAN TAPIA Page 50731 at 1524 All edits/amendments must be made on the electronic document DICTATION DATE: 03/30/191523 QUALITY CONTROL ASSESSOR: DEE 03/30/191523 RPT#: [id number] DC DATE: STATUS: ADM IN [facility] [address] [place] [address] END OF REPORT
--- NOTE | 2019-03-30 15:33 | MORECARE ---
CASE MANAGEMENT DISCHARGE SUMMARY PATIENT: THUAN TAPIA UNIT: [id number] ADM DATE: 03/30/19 AGE: 88 : 34 SEX: F ROOM/BED: D.2304 AUTHOR: CINDI,DOC PHYSICIAN: REFERRING PHYSICIAN: KINA RIBERA MD DATE OF SERVICE: 03/30/19 Discharge Plan Patient Name: THUAN TAPIA Facility: [facility]:[place] : 1930 Planned Disposition: Home Anticipated Discharge Date: Discharge Date: Expected LOS: Initial Reviewer: [email or web address] Initial Review Date: 03/30/2019 Generated: 03/30/19 4:33 pm Comments DCP- Discharge Planning Updated by [email or web address]: Nimisha Parada on 03/30/19 2:[address] Patient Name: THUAN TAPIA Admission Status: ER Accout number: [id number] Admission Date: 03-30-2019 : 1930 Admission Diagnosis: Attending: KINA RIBERA Current LOS: 1 Anticipated DC Date: Planned Disposition: Home Primary Insurance: MEDICARE A & B Discharge Planning Comments: CM attempted to meet with patient to complete initial dc planning assessment. Patient is confused. CM called jose luis Manjit Grey [phone] CM educated Manjit on the CM role and verbal consent given by patient to complete assessment. Patient lives at home alone where she is independent with her care. At discharge patient's family plans for her to return home and feels this is a safe discharge. CM discussed availability of home health, rehab services, and medical equipment. Plan to resume care with [place] per Family VALENTINA signed Patient has a walker but no other medical equipment. Family denied known discharge needs at this time. Patient does have dialysis MWF @ [facility]. CM will continue to follow and will assist as needed with dc plans/needs. Electrical Project Manager: Nimisha Parada DCPIA - Discharge Planning Initial Assessment Updated by [email or web address]: Nimisha Parada on 03/30/19 3:18 pm * Is the patient Alert and Oriented? Yes * How many steps to enter\exit or inside your home? ramp * PCP Germain * Pharmacy [facility] - [facility] * Preadmission Environment Home Alone * ADLs Independent * Equipment Walker * List name and contact numbers for known caregivers / representatives who currently or will assist patient after discharge: Manjit amaya - [phone] Pauly bailon - [phone] * Verbal permission to speak to the caregivers and representatives has been obtained from the patient. Yes * Community resources currently utilized Home Health * Please name any agencies selected above. [facility] * Additional services required to return to the preadmission environment? No * Can the patient safely return to the preadmission environment? Yes * Has this patient been hospitalized within the prior 30 days at any hospital? No Last DP export: 03/30/19 2:24 p Patient Name: THUAN TAPIA Page 62319 at 1533 All edits/amendments must be made on the electronic document DICTATION DATE: 03/30/191532 LAUNDERER HAND: DEE 03/30/191532 RPT#: [id number] DC DATE: STATUS: ADM IN [facility] [address] [place] [address] END OF REPORT
[2019-03-30 16:18] LABS: CKMB 11.5 U/L (0.0-3.6); CREATINE KINASE 198 UL (21-215)
[2019-03-30 16:19] LABS: TROPONIN-I 8.139 ng/mL (0.000-0.060)
--- NOTE | 2019-03-30 16:47 | NUR ---
NOTIFIED DR. GARCIA OF INCREASE IN TROPONIN.
--- NOTE | 2019-03-30 19:10 | NUR ---
REPORT RECIEVED, PT AAOX4, SLOW TO RESPOND. ASSESSMENT COMPLETED, SEE FLOWSHEET. PIV IN RIGHT FOREARM INFUSING, SEE IV FLOWSHEET. 4L O2 VIA NC. WILL CONTINUE TO MONITOR.
--- NOTE | 2019-03-30 21:00 | NUR ---
PT RESTING IN BED, AAOX4, NO ACUTE DISTRESS NOTED. WILL CONTINUE TO MONITOR.
[2019-03-30 21:36] LABS: CKMB 9.1 U/L (0.0-3.6); CREATINE KINASE 207 UL (21-215)
[2019-03-30 21:41] LABS: TROPONIN-I 8.583 ng/mL (0.000-0.060)
[2019-03-31] VITALS (25 sets, daily range): BP systolic 109–149; BP diastolic 53–92; Ht 152.4 cm; Wt 49.1 kg
--- NOTE | 2019-03-31 01:05 | NUR ---
PT IS SLIGHTLY CONFUSED, DISORIENTED TO TIME AND SITUATION. REORIENTED NEEDED, WILL CONTINUE TO MONITOR.
--- NOTE | 2019-03-31 03:00 | NUR ---
PT RESTING IN BED, DISORIENTED TO TIME AND SITUATION. REORIENTED NEEDED. WILL CONTINUE TO MONITOR.
[2019-03-31 03:34] LABS: BASOPHILS 0.1 % (0-2); EOSINOPHILS 0 % (0-7); HEMATOCRIT 34.4 % (36.0-48.0); HEMOGLOBIN 11.2 g/dL (12-16); IMMATURE GRANULOCYTES 0.3 % (0-5); LYMPHOCYTES 7.8 % (15-50); MCH 30.3 pg (26.0-34.0); MCHC 32.6 g/dL (31.0-37.0); MEAN PLATELET VOLUME 11.4 fL (7.4-10.4); MONOCYTES 8.2 % (2-11); NEUTROPHILS 83.6 % (40-80); RDW 14.4 % (11.5-14.5)
[2019-03-31 03:40] LABS: PLATELET COUNT 173 10x3/uL (130-400); WBC 19.4 10x3/uL (4.8-10.8)
[2019-03-31 03:51] LABS: BILIRUBIN - TOTAL 0.58 mg/dL (0.2-1.3); CALCIUM 7.9 mg/dL (8.5-10.1); CARBON DIOXIDE 23.3 mmol/L (21.0-32.0)
[2019-03-31 03:52] LABS: ALBUMIN 2.6 g/dL (3.4-5.0); ANION GAP 13.3 mmol/L (8-16); POTASSIUM - SERUM 3.6 mmol/L (3.5-5.1)
--- NOTE | 2019-03-31 05:00 | NUR ---
PT RESTING IN BED, DISORIENTED TO TIME AND SITUATION, REORIENTED NEEDED.
--- NOTE | 2019-03-31 07:00 | NUR ---
REC'D REPORT AND RESUMED CARE, AWAKE AND ALERT, VSS DENIES PAIN, ASSESSMENT COMPLETED PER FLOWSHEET
--- NOTE | 2019-03-31 07:40 | NUR ---
ATTEMPT TO FEED BREAKFAST, REFUSED TO EAT AFTER A FEW BITES, TRAY FROM BEDSIDE
--- NOTE | 2019-03-31 09:00 | NUR ---
MORNING MEDS GIVEN PER SEP FLOWSHEET
--- NOTE | 2019-03-31 11:00 | NUR ---
RESTING WITH NO SIGNS OF DISTRESS, VSS, NO ACUT CHANGE FROM PREVIOUS ASSESSMENT
--- NOTE | 2019-03-31 12:05 | NUR ---
REFUSED LUNCH TRAY
--- NOTE | 2019-03-31 14:31 | MORECARE ---
CASE MANAGEMENT DISCHARGE SUMMARY PATIENT: THUAN ATPIA UNIT: [id number] ADM DATE: 03/30/19 AGE: 88 : [birth year] SEX: F ROOM/BED: D.2304 AUTHOR: CINDI,DOC PHYSICIAN: REFERRING PHYSICIAN: KINA RIBERA MD DATE OF SERVICE: 03/31/19 Discharge Plan Patient Name: THUAN TAPIA Facility: [facility]:[place] : 1930 Planned Disposition: Home Anticipated Discharge Date: Discharge Date: Expected LOS: Initial Reviewer: [email or web address] Initial Review Date: 03/30/2019 Generated: 03/31/19 3:31 pm Comments DCP- Discharge Planning Updated by [email or web address]: Nimisha Parada on 03/30/19 2:[address] Patient Name: THUAN TAPIA Admission Status: ER Accout number: [id number] Admission Date: 03-30-2019 : 1930 Admission Diagnosis: Attending: KINA RIBERA Current LOS: 1 Anticipated DC Date: Planned Disposition: Home Primary Insurance: MEDICARE A & B Discharge Planning Comments: CM attempted to meet with patient to complete initial dc planning assessment. Patient is confused. CM called jose luis Manjit Grey [phone] CM educated Manjit on the CM role and verbal consent given by patient to complete assessment. Patient lives at home alone where she is independent with her care. At discharge patient's family plans for her to return home and feels this is a safe discharge. CM discussed availability of home health, rehab services, and medical equipment. Plan to resume care with [place] per Family VALENTINA signed Patient has a walker but no other medical equipment. Family denied known discharge needs at this time. Patient does have dialysis MWF @ [facility]. CM will continue to follow and will assist as needed with dc plans/needs. Pictures Editor: Nimisha Parada DCPIA - Discharge Planning Initial Assessment Updated by [email or web address]: Nimisha Parada on 03/30/19 3:18 pm * Is the patient Alert and Oriented? Yes * How many steps to enter\exit or inside your home? ramp * PCP [facility] * Pharmacy [facility] - by Mayra * Preadmission Environment Home Alone * ADLs Independent * Equipment Walker * List name and contact numbers for known caregivers / representatives who currently or will assist patient after discharge: Manjit amaya - [phone] Pauly bailon - [phone] * Verbal permission to speak to the caregivers and representatives has been obtained from the patient. Yes * Community resources currently utilized Home Health * Please name any agencies selected above. [facility] * Additional services required to return to the preadmission environment? No * Can the patient safely return to the preadmission environment? Yes * Has this patient been hospitalized within the prior 30 days at any hospital? No External Providers External Provider: [facility] Next Contact Date: Service Request Date: Service Type: Resolution: Reviewer: Comments: Last DP export: 03/30/19 2:33 p Patient Name: THUAN TAPIA Page [id number] at 1431 All edits/amendments must be made on the electronic document DICTATION DATE: 03/31/19 1431 CRANK HAND: DEE 03/31/19 1431 RPT#: [id number] DC DATE: STATUS: ADM IN [facility] [address] [place] [address] END OF REPORT
--- NOTE | 2019-03-31 14:55 | NUR ---
HD BEGAN, AWAKE AND ALERT, VSS
--- NOTE | 2019-03-31 15:34 | EC ---
PATIENT:THUAN TAPIA DATE OF SERVICE: 03/30/19 SEX: F MEDICAL RECORD: [id number] DATE OF : [birth year] LOCATION:[facility] D230 AGE OF PATIENT: 88 ADMISSION DATE: 03/30/19 REFERRING PHYSICIAN: INTERPRETING PHYSICIAN: GASTON NGUYEN MD ECHOCARDIOGRAM REPORT ECHO CHARGES 4 ECHO COMPLETE Date: 03/30/19 CLINICAL DIAGNOSIS: SOB ECHOCARDIOGRAPHIC MEASUREMENTS (adult normal given) AC root (d.<3.7cm) 3.0 cm LV Septum d (<1.2 cm> 1.1 cm Valve Excursion 1.2 cm LV Septum (systole) 1.3 cm Left Atria (s.<4.0cm> 3.8 cm LVPW d(<1.2cm) 1.1 cm RV (d.<2.3cm) 2.3 cm LVPW (sytole) 1.7 cm LV diastole(<5.6CM) 5.3 cm MV E-F(>70mm/sec) cm LV systole 4.2 cm LVOT Diameter 1.8 cm MV exc.(>10mm) cm Est.ejection fraction (50-75%) % DOPPLER: LVIT cm/sec A cm/sec E 110 cm/sec LA cm/sec RVSP 65.0 mmHg LVOT 75.0 cm/sec AOP1/2T m/s Asc. Ao 134 cm/sec RVOT 65.0 cm/sec RA cm/sec PA 62.0 cm/sec AV Gradient Peak 7.1 mmHg AV Mean 3.3 mmHg AV Area 1.3 cm MV Gradient Peak 9.7 mmHg MV Mean 2.8 mmHg MV Area cm COMMENTS: Orthotics Technician: Salazar JARQUINOE Front Desk Receptionist: 1 Dr. Nguyen TAPE# PACS Pericardial Effusion N DATE OF SERVICE: 03/30/2019 FINDINGS: 1. Left ventricular chamber size is dilated. Left ventricular systolic function is markedly reduced at 25%. 2. Left atrium is within normal limits at 3.8 cm. Right atrium and right ventricular chamber sizes are within normal limits. 3. Valvular structures: Aortic valve demonstrates aortic sclerosis, minimal aortic stenosis, valve area calculates 1.3 cm where is a gradient less than 10 mm across the valve. The remaining valvular structures have normal structure ECHOCARDIOGRAM REPORT [id number] THUAN TAPIA and motion. 4. Doppler interrogation elsewise reveals trace aortic insufficiency, trace mitral regurgitation, moderate tricuspid regurgitation, no other valvular insufficiency or stenosis. Pulmonary systolic pressure is elevated at estimated 65 mmHg. 5. No evidence of pericardial effusion or left ventricular thrombus. TRANSINT:[id number] Voice Confirmation ID: [id number] DOCUMENT ID: [id number] GASTON NGUYEN MD at 1534 CC: [id number] DICTATION DATE: 03/30/19 161 ECONOMIC ANALYSIS DIRECTOR: 03/30/19 1621 ADM IN [facility] [address] [place] [id number]
--- NOTE | 2019-03-31 17:30 | NUR ---
HD COMPLETED, 1 LITER OFF PER HD NURSE, PATIENT AWAKE AND ALERT, VSS CALL LIGHT IN REACH, NO NEEDS AT THIS TIME
--- NOTE | 2019-03-31 21:34 | NUR ---
PATIENT RECEIVED HS MEDICATIONS CRUSHED IN APPLE SAUCE. TOLERATED WELL, DENIES NEEDS VSS PULSE OX NOT WORKING - CPOC
--- NOTE | 2019-03-31 23:10 | NUR ---
REASSESSMENT COMPLETED SEE FLOWSHEET
[2019-04-01] VITALS (24 sets, daily range): BP systolic 96–176; BP diastolic 52–108
--- NOTE | 2019-04-01 03:15 | NUR ---
REASSESSMENT COMPLETED SEE FLOWSHEET
--- NOTE | 2019-04-01 05:43 | NUR ---
PATIENT RESTING COMFORTABLY DENIES NEEDS UNCONNECTED FROM MONITOR, RECONNECTED AT THIS TIME. VSS CPOC
--- NOTE | 2019-04-01 07:00 | NUR ---
AWAKES EASILY TO VERBAL STIMULI SKIN WARM AND DRY. MONITOR SR. IV RIGHT FOREARM WITH LARGE BRUISE NOTED INFUSING WITH NS AT 5 ML HOUR. CAVANAUGH CATH PATENT. HEAD OF BED ELEVATED 45 DEGREES. DENIES PAIN.
--- NOTE | 2019-04-01 07:30 | NUR ---
WANTS A MILK SHAKE FOR BREAKFAST, 3 ICE CREAMS CONTAINER PUT IN 240 ML OF GLUCERNA, AND MIXED WELL. PATIENT DRANK ALL OF IT. DRANK HONEY CONSIST APPLE JUICE. TOLERATED WELL NO DIFFICULTY SWALLOWING NOTED, NO COUGHING OR CHOKING
[2019-04-01 07:44] LABS: HEMOGLOBIN 13.6 g/dL (12-16); MCHC 33.2 g/dL (31.0-37.0); MCV 93.4 fL (80.0-100.0); MEAN PLATELET VOLUME 11.9 fL (7.4-10.4); PLATELET COUNT 157 10x3/uL (130-400); RBC 4.39 10x6/uL (4.00-5.40); RDW 14.7 % (11.5-14.5); WBC 25.9 10x3/uL (4.8-10.8)
[2019-04-01 07:51] LABS: CALCIUM 9.6 mg/dL (8.5-10.1); CARBON DIOXIDE 19.5 mmol/L (21.0-32.0); CREATININE - SERUM 4.3 mg/dL (0.6-1.3); MAGNESIUM - SERUM 2.2 mg/dL (1.8-2.4); PHOSPHOROUS 6.3 mg/dL (2.5-4.9); VANCOMYCIN - RANDOM 10.8 ug/mL (10.0-20.0)
[2019-04-01 07:54] LABS: ANION GAP 24.9 mmol/L (8-16)
[2019-04-01 08:14] LABS: POTASSIUM - SERUM 5.4 mmol/L (3.5-5.1)
[2019-04-01 08:18] LABS: LYMPHOCYTES 5 % (15-50); MONOCYTES 3 % (2-11); NEUTROPHILS 92 % (40-80); PLATELET ESTIMATE NORMAL
--- NOTE | 2019-04-01 08:30 | NUR ---
IV LEAKING FROM SITE. WHEN TRIED TO FLUSH PATIENT STATES THAT IT HURTS. IV REMOVED.
--- NOTE | 2019-04-01 10:00 | NUR ---
COMPLETE HIBCLENS BATH GIVEN WITH LINEN CHANGE PATIENT TOLERATED WELL. WARM BLANKET APPLIED. IV RESTARTED IN RIGHT FOREARM AFTER 3 STICKS PATIENT TOLERATED WELL. GOOD BLOOD RETURNED. INFUSING WITH NS AT 30 ML HOUR. ABT STARTED.
--- NOTE | 2019-04-01 12:00 | NUR ---
SLEEPING RESP DEEP AND REGULAR. NO DISTRESS. ALLOWED TO SLEEP RIGHT NOW
--- NOTE | 2019-04-01 12:15 | NUR ---
AWAKE ALERT LUNCH TRAY SERVED NO BOTTOM TEETH, UNABLE TO EAT SANDWICH STATES SOUP IS TOO THICK. ICE CREAM GIVEN. DRINK FLUIDS WELL.
--- NOTE | 2019-04-01 14:00 | NUR ---
ON BED EVANS FIRM BROWN LARGE STOOL
--- NOTE | 2019-04-01 15:30 | NUR ---
RESTING COMFORTABLY NO DISTRESS. DENIES PAIN, IV RIGHT FOREARM WITHOUT REDNESS OR SWELLING. INFUSING WITH NS AT 30 ML HOUR. SCD ON LOWER LEGS. MONITOR SR. LIKE DRINKING WATER
--- NOTE | 2019-04-01 16:51 | NUR ---
PUREED DIET SERVED. FEEDING SELF . NO COUGHING OR SWALLOWING PROBLEMS NOTED
--- NOTE | 2019-04-01 18:42 | NUR ---
FOUND TAKING HER GOWN OFF, STATES SHE FOUND A GOLD FISH SHE WANTS TO SHOW US. PATIENT CAN STILL TELL YOU WHERE SHE IS AND WHY SHE IS HERE. REPLACED CLOTHES AND COVERS.
--- NOTE | 2019-04-01 20:00 | NUR ---
PATIENT RESTING QUIETLY. VSS. BED LOWERED/LOCKED. CALL LIGHT WITHIN REACH. WILL CONTINUE TO MONITOR.
[2019-04-02] VITALS (24 sets, daily range): BP systolic 127–176; BP diastolic 57–92
--- NOTE | 2019-04-02 | NUR ---
PATIENT RESTING QUIETLY, NO DISTRESS NOTED. VSS. BED LOWERED/LOCKED AND CALL LIGHT WITHIN REACH. IV INFUSING WITHOUT SIGNS OF INFILTRATION. WILL CONTINUE TO MONITOR.
--- NOTE | 2019-04-02 00:30 | NUR ---
CHG BATH GIVEN, GOWN CHANGE AND COMPLETE LINEN CHANGE. PATIENT HAS SKIN TEAR UNDER RT SHOULDER, MEPILEX APPLIED. PATIENT ALSO HAS NON BLANCHABLE AREA TO COCCYX, MEPILEX ALSO APPLIED AND PATIENT REPOSITIONED ON RT SIDE WITH PILLOW. PATIENT DENIES FURTHER NEEDS OR CONCERNS AT THIS TIME. BED LOWERED/LOCKED AND CALL LIGHT WITHIN REACH. CAVANAUGH SECURED BELOW BLADDER AND TUBING FREE OF LOOPS. CAVANAUGH CATHETER CARE PERFORMED WELL, PATIENT TOLERATED WELL. NEW SOCKS APPLIED. WILL CONTINUE TO MONITOR.
--- NOTE | 2019-04-02 04:00 | NUR ---
PATIENT RESTING QUIETLY, NO DISTRESS NOTED. VSS. BED LOWERED/LOCKED AND CALL LIGHT WITHIN REACH. CAVANAUGH SECURED BELOW BLADDER AND TUBING FREE OF LOOPS. IV INFUSING WITHOUT SIGNS OF INFILTRATION. WILL CONTINUE TO MONITOR.
--- NOTE | 2019-04-02 07:00 | NUR ---
awake and alert skin warm and dry. compliants feels sick to her stomach now and all night. no abd tenderness noted. good bowel sounds present. breakfast held for now. iv right forearm without redness or swelling infusing with ns at kvo. giang cath patent draining cloudy tricia urine. head of bed elevated 30 degrees. denies any pain.
[2019-04-02 07:10] LABS: BASOPHILS 0.1 % (0-2); EOSINOPHILS 0.1 % (0-7); HEMATOCRIT 36.2 % (36.0-48.0); HEMOGLOBIN 12.2 g/dL (12-16); IMMATURE GRANULOCYTES 0.2 % (0-5); LYMPHOCYTES 6.6 % (15-50); MCH 30.7 pg (26.0-34.0); MCHC 33.7 g/dL (31.0-37.0); MEAN PLATELET VOLUME 10.9 fL (7.4-10.4); MONOCYTES 7.9 % (2-11); NEUTROPHILS 85.1 % (40-80); PLATELET COUNT 170 10x3/uL (130-400); RBC 3.98 10x6/uL (4.00-5.40); RDW 14.3 % (11.5-14.5)
[2019-04-02 07:14] LABS: WBC 16.3 10x3/uL (4.8-10.8)
[2019-04-02 07:30] LABS: ANION GAP 19.8 mmol/L (8-16); CARBON DIOXIDE 21.7 mmol/L (21.0-32.0); CREATININE - SERUM 5.1 mg/dL (0.6-1.3)
[2019-04-02 07:38] LABS: POTASSIUM - SERUM 4.5 mmol/L (3.5-5.1)
--- NOTE | 2019-04-02 08:30 | NUR ---
brittnee soler for dr. collins here orders received for zofran. meds given. Dr.St. gonzales here informed patient that she has had a heart attack and may do a heart cath tomorrow if still stable over night.
--- NOTE | 2019-04-02 09:00 | NUR ---
chocolate milk shake given after zofran. po meds taken. tolerating well right now
--- NOTE | 2019-04-02 10:00 | NUR ---
nausea, then vomitted some of chocolate milk shake. clean up with complete linen change. states she feels weak and tired.
--- NOTE | 2019-04-02 11:33 | NUR ---
resting well on right side. no distress. assessment completed.
--- NOTE | 2019-04-02 15:00 | NUR ---
AWAKE DENIES PAIN. ATE CUP OF APPLE SAUCE. OFFERED ICE CREAM nOT AT THIS TIME. NO DISTRESS RESP DEEP AND REGULAR. NO DIFFICULTY SWALLOWING. NO CHOKING NOTED.
--- NOTE | 2019-04-02 17:02 | NUR ---
REFUSED PUREED DIET, WANTS A CHOCOLATE NEPRO DRINK, DIETARY NOTIFIED. TO BRING CHOCOLATE PACKET, WE CAN GIVE HER INSULIN TO COVER SUGAR.
--- NOTE | 2019-04-02 18:28 | NUR ---
DRANK ALL OF HER CHOCOLATE NEPRO WITHOUT ANY COMPLIANTS OF NAUSEA. WATCHING TV NO DISTRESS
--- NOTE | 2019-04-02 19:00 | NUR ---
REPORT RECEIVED INITIAL ASSESSMENT COMPLETE. PT SITTING UP IN BED ORIENTED DENIES PAIN OR DISCOMFORT. O2 PER NC 2LPM CLEAR LUNG SOUNDS
--- NOTE | 2019-04-02 23:00 | NUR ---
REASSESSMENT COMPLETE SEE FLOWSHEET. PT WATCHING TV DENIES PAIN OR DISCOMFORT VSS CPOC
[2019-04-03] VITALS (26 sets, daily range): BP systolic 73–165; BP diastolic 38–97
--- NOTE | 2019-04-03 03:00 | NUR ---
REASSESSMENT COMPLETE. REPOSITIONED FOR COMFORT CPOC VSS CALL LIGHT IN REACH
[2019-04-03 04:39] LABS: BASOPHILS 0.1 % (0-2); EOSINOPHILS 1.1 % (0-7); HEMATOCRIT 34.9 % (36.0-48.0); HEMOGLOBIN 11.8 g/dL (12-16); IMMATURE GRANULOCYTES 0.3 % (0-5); LYMPHOCYTES 9.7 % (15-50); MCHC 33.8 g/dL (31.0-37.0); MCV 91.6 fL (80.0-100.0); MEAN PLATELET VOLUME 11.5 fL (7.4-10.4); NEUTROPHILS 79.8 % (40-80); PLATELET COUNT 179 10x3/uL (130-400); RBC 3.81 10x6/uL (4.00-5.40); RDW 14.3 % (11.5-14.5)
[2019-04-03 04:50] LABS: WBC 11.6 10x3/uL (4.8-10.8)
--- NOTE | 2019-04-03 05:00 | NUR ---
ANSWERED PTS CALL LIGHT SHE WANTS A CHOCOLATE NEPRO DRINK. REMINDED PT THAT SHE WAS NPO AFTER MIDNIGHT FOR CARDIAC PROCEDURE CARDIOLOGY TO DECIDE THIS MORNING
[2019-04-03 05:01] LABS: ANION GAP 19.1 mmol/L (8-16); CALCIUM 8.7 mg/dL (8.5-10.1); CARBON DIOXIDE 22.4 mmol/L (21.0-32.0); CREATININE - SERUM 5.7 mg/dL (0.6-1.3); POTASSIUM - SERUM 4.5 mmol/L (3.5-5.1); VANCOMYCIN - RANDOM 21.6 ug/mL (10.0-20.0)
--- NOTE | 2019-04-03 07:20 | NUR ---
REPORT RECEIVED. PT CONFUSED. RESERVE LEFT ARM PER FISTULA. SHE HAS DIALYSIS MWF. SHE IS CURRENTLY NPO FOR POSSIBLE HEART CATHETERIZATION TODAY. IV TO RIGHT FOREARM. VSS. PT HAS CAVANAUGH. PT WANTS WATER. REMINDED HER THAT SHE CAN'T HAVE ANYTHING BY MOUTH AT THIS TIME. WILL CONTINUE TO MONITOR.
--- NOTE | 2019-04-03 08:03 | NUR ---
Nutrition follow-up: Pt now NPO for possible heart cath today; pt has had some nausea, vomiting PO intake of puree diet with honey thick liquids has been ~25% or less of meals Pt is drinking Nepro and eating ice cream, milkshakes per nursing Labs reviewed; PO4: 6.2 Wt: 116# +BM RDN following.
--- NOTE | 2019-04-03 08:52 | NUR ---
PT PREOPPED FOR CARDIAC CATHETERIZATION. HERE TO TAKE PT UP FOR PROCEDURE.
--- NOTE | 2019-04-03 10:03 | NUR ---
PT CATH CLEAN. SPOKE WITH RENAL AGRICULTURAL SCIENCES PROFESSORONDINA ALCALA FOR PT TO TRANSFER TO FLOOR
--- NOTE | 2019-04-03 10:05 | NUR ---
PT BACK FROM HEART CATH. NO BLOCKAGES. WENT IN THROUGH RIGHT GROIN. DRESSING IN PLACE. NO BLOODY DRAINAGE NOTED AT THIS TIME.
--- NOTE | 2019-04-03 12:16 | NUR ---
groin site checked. dressing c,d,i. no signs of hematoma. pt reminded to keep leg straight. bed low. call light in reach.
--- NOTE | 2019-04-03 15:14 | NUR ---
UPON RECIEVING THE PT FROM ICU, WAS CALLED INTO THE ROOM BY PANICKED STUDENT. STATES PT WAS FINE, TALKING CLEARLY TO HER AND IDENTIFIYING OBJECTS BUT THAT WHEN THE PT WAS TRANSFERED TO THE BED SHE SUDDENLY HAD RIGHT SIDED FACIAL DROOP. UPON DOING A FAST EXAM, RIGHT SIDED WEAKNESS WAS NOTED. RAPID RESPONSE WAS CALLED, BLOOD PREASRE WAS READING 70S/30S. PT HAD SOME GARBLED SPEACH, ANSWERED MOST QUESTIONS APPROPRIATELY, HX OF DEMENTIA MAKING IT HARD TO TELL IF IT WAS HER DEMENTIA OR ANEW DISEASE PROCESS AFFECTING SOME ANSWERS. ICU NURSE IN ROOM NOW, 500ML BOLUS GIVEN IN AN ATTEMPT TO RAISE THE PTS B/P/ IF IT CONTINUES TO REMAIN LOW, PT WILL BE TRANSFERED BACK TO ICU PER M.Alyce CL IN REACH, SRX2, ICU NURSE AT BEDSIDE.
--- NOTE | 2019-04-03 15:30 | NUR ---
POST RR PATIENT RETURNED TO ICU RE: LOW BP, RECONNECTED TO ICU MONITORS, VSS, PATIENT IS AWAKE AND CONFUSED, DENIES PAIN, NO OTHER ACUTE CHANGE FROM PREVOIOUS
--- NOTE | 2019-04-03 17:30 | NUR ---
PULLING COVERS OFF, SAYS SHE IS COLD, RECOVERED AND REPOSTIONED UP IN BED TO BACK WITH HEELS FLOATED, NO NEEDS AT THIS TIME
--- NOTE | 2019-04-03 19:00 | NUR ---
Received patient resting in bed with eyes open, assessment completed per flowsheet. Patient confused/disoriented to place/situation, reorients easily/follows instructions. S1/S2 noted NSR on telemetry, rythmic and regular. Breathing is shallow on 2L via NC with O2 sat 95%, fine crackles noted bilateral upper and mid with diminished lower. All pulses palpable with cap refill < 3 sec, skin warm/dry. Denies pain or other needs at this time, see flowsheet for details. All VSS and will continue to monitor.
--- NOTE | 2019-04-03 20:20 | NUR ---
patient services technician to 2304 to begin treatment.
--- NOTE | 2019-04-03 23:00 | NUR ---
Reassessment completed per flowsheet, no changes noted from previous assessment. Dialysis completed, 1L fluid removed with HR/BP stable. All pulses palpable with cap refill < 3 sec, skin warm/dry. Denies pain or other needs at this time, see flowsheet for details. All VSS and will continue to monitor.
[2019-04-04] VITALS (13 sets, daily range): BP systolic 126–169; BP diastolic 54–88
--- NOTE | 2019-04-04 01:00 | NUR ---
Patient sleeping in bed with eyes closed, no s/s of distress at this time. All VSS and will continue to monitor.
--- NOTE | 2019-04-04 02:57 | NUR ---
Reassessment completed per flowsheet, no changes noted from previous assessment. L upper arm Fistula dressing CDI, thrill/bruit noted. Repositioned for comfort, denies pain or other needs. See flowsheet for details, all VSS and will continue to monitor.
[2019-04-04 04:55] LABS: BASOPHILS 0.2 % (0-2); EOSINOPHILS 2.5 % (0-7); HEMATOCRIT 33.2 % (36.0-48.0); HEMOGLOBIN 10.9 g/dL (12-16); IMMATURE GRANULOCYTES 0.2 % (0-5); LYMPHOCYTES 11.3 % (15-50); MCH 30.4 pg (26.0-34.0); MCHC 32.8 g/dL (31.0-37.0); MCV 92.5 fL (80.0-100.0); MEAN PLATELET VOLUME 11.6 fL (7.4-10.4); MONOCYTES 9.3 % (2-11); NEUTROPHILS 76.5 % (40-80); PLATELET COUNT 173 10x3/uL (130-400); RBC 3.59 10x6/uL (4.00-5.40); RDW 14.3 % (11.5-14.5); WBC 9.6 10x3/uL (4.8-10.8)
--- NOTE | 2019-04-04 05:00 | NUR ---
Patient sleeping in bed with eyes closed, slightly lethargic on awakening. Patient denies pain or other needs, all VSS and will continue to monitor.
[2019-04-04 05:22] LABS: ANION GAP 16.6 mmol/L (8-16); CALCIUM 8.7 mg/dL (8.5-10.1); CARBON DIOXIDE 25.3 mmol/L (21.0-32.0); CREATININE - SERUM 4.3 mg/dL (0.6-1.3); POTASSIUM - SERUM 3.9 mmol/L (3.5-5.1)
--- NOTE | 2019-04-04 13:03 | OP ---
PATIENT NAME: THUAN TAPIA MEDICAL RECORD: [id number] :34 LOCATION:D. D.2134 ADMISSION DATE:03/30/19 SURGEON: HAILEE LANZA MD DATE OF OPERATION: 04/03/2019 PROCEDURE: Left heart catheterization, selective coronary angiography, right femoral artery approach. CATHETERS: A 5-Vietnamese sheath, 5/4 left and right Judkin's, 5/4 pig. The procedure was well tolerated. The patient returned to the bailey, sheath removed. ExoSeal device. FINDINGS: Left ventriculography in 30-degree VILLA view shows global hypokinesis, more marked apical hypokinesis. Overall LV function 20% to 25%. CORONARY ANATOMY: LEFT MAIN: Left main is free of disease. LAD: Free of disease in diagonal system. CIRCUMFLEX: Free of disease in the marginal system. RIGHT CORONARY ARTERY: Dominant artery, gives rise to PDA, free of disease. IMPRESSION: Nonischemic cardiomyopathy. Type non-ST elevation myocardial infarction. Plan for medical management of cardiomyopathy. We will change diltiazem to carvedilol. Could consider FIDELIA, ARB, potassium levels in face of underlying renal insufficiency. TRANSINT:[id number] Voice Confirmation ID: [id number] DOCUMENT ID: [id number] HAILEE LANZA MD at 1303 CC: [id number] DICTATION DATE: 04/03/19 0944 INDIAN TRADER: 04/03/19 1148 ADM IN [facility] [id number] [place] [address]
--- NOTE | 2019-04-04 13:14 | NUR ---
PATIENT IS HERE FROM ICU. ICU NURSE LET ME KNOW THAT THEY TRIED MULTIPLE TIMES TO START AN IV AND WERE UNSUCCESSFUL. SHE HAS ANTIBIOTICS DUE. ANNMARIE, VASCULAR ACCESS NURSE HAS BEEN CUNSULTED, AND CALLED X3. CALLED KEV MENON, AND SHE SAID, JUST KEEP TRYING TO CALL.
--- NOTE | 2019-04-04 14:10 | NUR ---
VASCULAR ACCESS NURSE GOT AN IV ON THIS PATINET . 22G IN HER RIGHT HAND.
[2019-04-05] VITALS: BP 124/64
[2019-04-05 04:00] VITALS: BP 154/61
[2019-04-05 06:57] LABS: BASOPHILS 0.3 % (0-2); EOSINOPHILS 2.9 % (0-7); HEMATOCRIT 34.9 % (36.0-48.0); HEMOGLOBIN 11.4 g/dL (12-16); IMMATURE GRANULOCYTES 0.4 % (0-5); LYMPHOCYTES 12.1 % (15-50); MCH 29.8 pg (26.0-34.0); MCHC 32.7 g/dL (31.0-37.0); MCV 91.4 fL (80.0-100.0); MEAN PLATELET VOLUME 11.7 fL (7.4-10.4); MONOCYTES 7.9 % (2-11); NEUTROPHILS 76.4 % (40-80); PLATELET COUNT 188 10x3/uL (130-400); RBC 3.82 10x6/uL (4.00-5.40); RDW 14.4 % (11.5-14.5); WBC 7.7 10x3/uL (4.8-10.8)
[2019-04-05 07:23] LABS: ANION GAP 19.3 mmol/L (8-16); CALCIUM 9.5 mg/dL (8.5-10.1); CREATININE - SERUM 5.3 mg/dL (0.6-1.3); POTASSIUM - SERUM 4.3 mmol/L (3.5-5.1)
[2019-04-05 08:00] VITALS: BP 140/42
--- NOTE | 2019-04-05 10:08 | NUR ---
PT TAKEN TO DIALYSIS VIA BED.
--- NOTE | 2019-04-05 10:19 | NUR ---
I have reviewed this patient and I concur with the Shift Assessment completed by the Licensed Practical Nurse today this shift.
--- NOTE | 2019-04-05 12:37 | MORECARE ---
CASE MANAGEMENT DISCHARGE SUMMARY PATIENT: THUAN TAPIA UNIT: [id number] ADM DATE: 03/30/19 AGE: 88 : 32 SEX: F ROOM/BED: D.2334 AUTHOR: TORI PUENTE PHYSICIAN: REFERRING PHYSICIAN: KINA RIBERA MD DATE OF SERVICE: 04/05/19 Discharge Plan Patient Name: THUAN TAPIA Facility: [facility]:[place] : 1930 Planned Disposition: Inpatient Rehab Anticipated Discharge Date: 04/05/19 Discharge Date: Expected LOS: 6 Initial Reviewer: [email or web address] Initial Review Date: 03/30/2019 Generated: 04/05/19 1:37 pm DCP- Discharge Planning Updated by [id number]: Nimisha Parada on 03/30/19 2:[address] Patient Name: THUAN TAPIA Admission Status: ER Accout number: [id number] Admission Date: 03-30-2019 : 1930 Admission Diagnosis: Attending: KINA RIBERA Current LOS: 1 Anticipated DC Date: Planned Disposition: Home Primary Insurance: MEDICARE A & B Discharge Planning Comments: CM attempted to meet with patient to complete initial dc planning assessment. Patient is confused. CM called jose luis Grey [phone] CM educated Manjit on the CM role and verbal consent given by patient to complete assessment. Patient lives at home alone where she is independent with her care. At discharge patient's family plans for her to return home and feels this is a safe discharge. CM discussed availability of home health, rehab services, and medical equipment. Plan to resume care with [facility] per Family VALENTINA signed Patient has a walker but no other medical equipment. Family denied known discharge needs at this time. Patient does have dialysis MWF @ [facility]. CM will continue to follow and will assist as needed with dc plans/needs. Home Care Music Therapist: Nimisha Parada DCPIA - Discharge Planning Initial Assessment Updated by [email or web address]: Nimisha Parada on 03/30/19 3:18 pm * Is the patient Alert and Oriented? Yes * How many steps to enter\exit or inside your home? ramp * PCP [facility] * Pharmacy [facility] - by May[facility] * Preadmission Environment Home Alone * ADLs Independent * Equipment Walker * List name and contact numbers for known caregivers / representatives who currently or will assist patient after discharge: Manjit amaya - [phone] Pauly bailon - [phone] * Verbal permission to speak to the caregivers and representatives has been obtained from the patient. Yes * Community resources currently utilized Home Health * Please name any agencies selected above. [facility] * Additional services required to return to the preadmission environment? No * Can the patient safely return to the preadmission environment? Yes * Has this patient been hospitalized within the prior 30 days at any hospital? No Coverage Notice Reviewer: [email or web address] Law Benavidez Notice Issued Date-Time: 04/05/2019 8:55 Notice Type: IM Discharge Notice Notice Delivered To: Patient Relationship to Patient: Cap Sizer Name: Delivery Method: HAND - Hand Delivered Shawna Days: Prior Verbal Notification: Recipient Understood Notice: Yes Recipient Signature: Yes Med Rec Note Co-signed by Attending: Coverage Notice Comment: Last DP export: 03/31/19 1:31 p Patient Name: THUAN TAPIA Page [id number] at 1237 All edits/amendments must be made on the electronic document DICTATION DATE: 04/05/19 1237 BOBBIN WINDER: DEE 04/05/19 1237 RPT#: [id number] DC DATE: STATUS: ADM IN [facility] [address] [place] [address] END OF REPORT
--- NOTE | 2019-04-05 12:45 | MORECARE ---
CASE MANAGEMENT DISCHARGE SUMMARY PATIENT: THUAN TAPIA UNIT: [id number] ADM DATE: 03/30/19 AGE: 88 : 32 SEX: F ROOM/BED: D.5824 AUTHOR: TORI PUENTE PHYSICIAN: REFERRING PHYSICIAN: KINA RIBERA MD DATE OF SERVICE: 04/05/19 Discharge Plan Patient Name: THUAN TAPIA [facility] [facility] 1930 Planned Disposition: Inpatient Rehab Anticipated Discharge Date: 04/05/19 Discharge Date: Expected LOS: 6 Initial Reviewer: [email or web address] Initial Review Date: 03/30/2019 Generated: 04/05/19 1:45 pm Comments DCP- Discharge Planning Updated by [email or web address]: Mark Benavidez on 04/05/19 11:[address] Patient Name: THUAN TAPIA Encounter No: [id number] : 1930 Primary Insurance: MEDICARE A & B Anticipated DC Date: 04-05-2019 Planned Disposition: Inpatient Rehab External Planned Provider: [facility] DCP follow-up note: CM RECEIVED ORDER FOR REHAB OR HOME HEALTH. CM SPOKE TO DR. RIBERA WHO REPORTS PT IS READY TO DISCHARGE BUT HAS NOT BEEN OUT OF BED AND POSSIBLY NEEDS REHAB BEFORE GOING BACK HOME. CM MET WITH PT IN ROOM TO DISCUSS DISCHARGE NEEDS AND PLANNING. CM DISCUSSED AVAILABILITY OF HOME HEALTH, REHAB SERVICES AND MEDICAL EQUIPMENT. PT THINKS SHE NEEDS REHAB BEFORE GOING HOME ALONE. CM DISCUSSED REHAB OPTIONS, PROVIDERS AND LOCATIONS. PT [facility] NOT [facility] AND ASKED FOR REHAB AT [facility]. PT REPORTS FAMILY TO TRANSPORT HOME AT DISCHARGE. IMPORTANT MESSAGE FROM MEDICARE PROVIDED AND EXPLAINED. CM OBTAINED ORDER FOR INPATIENT REHAB PRESCREENING AND PHYSICAL THERAPY EVAUATIONS. CM WAITING THERAPY EVALUATION RESULTS [facility] PRESCREENING BY [facility]. Mark Benavidez., CASE MANAGEMENT DCP- Discharge Planning Updated by [email or web address]: Nimisha Parada on 03/30/19 2:[address] Patient Name: THUAN TAPIA Admission Status: ER Accout number: [id number] Admission Date: 03-30-2019 : 1930 Admission Diagnosis: Attending: KINA RIBERA Current LOS: 1 Anticipated DC Date: Planned Disposition: Home Primary Insurance: MEDICARE A & B Discharge Planning Comments: CM attempted to meet with patient to complete initial dc planning assessment. Patient is confused. CM called jose l[facility] Grey [phone] CM educated Manjit on the CM role and verbal consent given by patient to complete assessment. Patient lives at home alone where she is independent with her care. At discharge patient's family plans for her to return home and feels this is a safe discharge. CM discussed availability of home health, rehab services, and medical equipment. Plan to resume care with [facility] per Family VALENTINA signed Patient has a walker but no other medical equipment. Family denied known discharge needs at this time. Patient does have dialysis MWF @ [facility]. CM will continue to follow and will assist as needed with dc plans/needs. Central Services Tech: Nimisha Parada DCPIA - Discharge Planning Initial Assessment Updated by [id number]: Nimisha Parada on 03/30/19 3:18 pm * Is the patient Alert and Oriented? Yes * How many steps to enter\exit or inside your home? ramp * PCP [facility] * Pharmacy [facility] - by Mayra * Preadmission Environment Home Alone * ADLs Independent * Equipment Walker * List name and contact numbers for known caregivers / representatives who currently or will assist patient after discharge: Manjit amaya - [phone] Pauly bailon [phone] * Verbal permission to speak to the caregivers and representatives has been obtained from the patient. Yes * Community resources currently utilized Home Health * Please name any agencies selected above. [facility] * Additional services required to return to the preadmission environment? No * Can the patient safely return to the preadmission environment? Yes * Has this patient been hospitalized within the prior 30 days at any hospital? No Coverage Notice Reviewer: [id number] - Mark Benavidez Notice Issued Date-Time: 04/05/2019 8:55 Notice Type: IM Discharge Notice Notice Delivered To: Patient Relationship to Patient: Valve Repairer Reclamation Name: Delivery Method: HAND - Hand Delivered Shawna Days: Prior Verbal Notification: Recipient Understood Notice: Yes Recipient Signature: Yes Med Rec Note Co-signed by Attending: Coverage Notice Comment: Last DP export: 04/05/19 11:37 a Patient Name: THUAN TAPIA Page [id number] at 1245 All edits/amendments must be made on the electronic document DICTATION DATE: 04/05/191244 INVESTIGATIVE ANALYST: DEE 04/05/191244 RPT#: [id number] DC DATE: STATUS: ADM IN [facility] [address] [place] [address] END OF REPORT
--- NOTE | 2019-04-05 13:38 | NUR ---
GOT MESSAGE TO CALL PT'S JEREMIAH GARCIA. CALLED NUMBER AND GOT A VOICEMAIL.
--- NOTE | 2019-04-05 14:10 | NUR ---
PT RETURNED FROM DIALYSIS.
[2019-04-05 16:00] VITALS: BP 120/58
--- NOTE | 2019-04-05 16:40 | NUR ---
Rehab Prescreening Consult recieved and the chart has been reviewed. She has not been evaluated by PT. Rehab will follow her and see what her functional needs are, as well as if she is able to participate in the required 3 hrs of therapy every day 5 days a week. Minoo Skelton RN Clinical Liaison, Rehab
--- NOTE | 2019-04-05 19:10 | NUR ---
EVENING ROUNDS COMPLETE, PT LAYING IN BED, AAOX2, DISORIENTATED TO PLACE AND TIME. NO SIGNS OF DISTRESS, PT DENIES ANY PAIN AT THIS TIME. CL IN REACH, BED IN LOWEST POSITION. CONT WITH POC.
[2019-04-05 20:36] VITALS: BP 137/54
[2019-04-06] VITALS: BP 119/53
[2019-04-06 04:00] VITALS: BP 133/62
[2019-04-06 05:34] LABS: BASOPHILS 0.3 % (0-2); EOSINOPHILS 2.9 % (0-7); HEMATOCRIT 37.2 % (36.0-48.0); HEMOGLOBIN 12.3 g/dL (12-16); IMMATURE GRANULOCYTES 0.3 % (0-5); LYMPHOCYTES 16.4 % (15-50); MCH 30.6 pg (26.0-34.0); MCHC 33.1 g/dL (31.0-37.0); MCV 92.5 fL (80.0-100.0); MEAN PLATELET VOLUME 12.1 fL (7.4-10.4); MONOCYTES 10.6 % (2-11); NEUTROPHILS 69.5 % (40-80); PLATELET COUNT 168 10x3/uL (130-400); RBC 4.02 10x6/uL (4.00-5.40); RDW 14.4 % (11.5-14.5); WBC 9.3 10x3/uL (4.8-10.8)
[2019-04-06 06:05] LABS: ANION GAP 16.2 mmol/L (8-16); CALCIUM 9.2 mg/dL (8.5-10.1); CARBON DIOXIDE 25.7 mmol/L (21.0-32.0); POTASSIUM - SERUM 3.9 mmol/L (3.5-5.1)
[2019-04-06 06:11] LABS: CREATININE - SERUM 3.5 mg/dL (0.6-1.3)
--- NOTE | 2019-04-06 07:09 | NUR ---
REPORT RECEIVED. WILL CONTINUE WITH POC. PT CURRENTLY LYING HIGH FOWLERS. CALL LIGHT W/I REACH. PT IS CURRENTLY RESTING. RR EVEN AND UNLABORED ON 2L 02. R.HAND PIV IS SALINE LOCKED. CAVANAUGH IN PLACE AND DRAINING URINE. NO S/S OF DISTRESS NOTED. PT DENIES ANY NEEDS. WILL CTM.
[2019-04-06 08:00] VITALS: BP 158/63
[2019-04-06 12:00] VITALS: BP 128/48
[2019-04-06] MEDS ORDERED: ROCEPHIN 1 GM/D51 G1 IV (12:31)
[2019-04-06] MEDS ORDERED: AMIODARONE HCL200 MG PO (12:31)
[2019-04-06] MEDS ORDERED: ACETAMINOPHEN325 MG PO (12:32)
[2019-04-06] MEDS ORDERED: LIPITOR20 MG PO (12:32)
[2019-04-06] MEDS ORDERED: COREG6.25 MG PO (12:32)
[2019-04-06] MEDS ORDERED: FLORAJEN3 CAPS460 MG PO (12:33)
[2019-04-06] MEDS ORDERED: GLUCAGEN1 MG/VIAL SC (12:34)
[2019-04-06] MEDS ORDERED: HUMULIN R100 U/ML SC (12:34)
[2019-04-06] MEDS ORDERED: GLUCAGEN1 MG/VIAL IM (12:34)
--- NOTE | 2019-04-06 13:04 | NUR ---
Nutrition Follow-up: Pt reports eating small amt of breakfast this AM. Likes milkshakes. Being followed by ST; upgraded to nectar thick liquids yesterday. Diet: Renal ADA, Puree with Sweet Grass Thick Liquids PO intake: 25% avg yesterday Wt: 108# Last BM: 04/06 Labs noted: Glu 101, K+ 3.9, Ca 9.2 Meds noted: Tums, Humulin Continue current diet as tolerated with consistencies per ST. +Nepro with meals. RD following.
--- NOTE | 2019-04-06 13:44 | MORECARE ---
CASE MANAGEMENT DISCHARGE SUMMARY PATIENT: THUAN TAPIA UNIT: [id number] ADM DATE: 03/30/19 AGE: 88 : 32 SEX: F ROOM/BED: D.5004 AUTHOR: TORI PUENTE PHYSICIAN: REFERRING PHYSICIAN: KINA RIBERA MD DATE OF SERVICE: 04/06/19 Discharge Plan Patient Name: [facility]UAN [facility]APIA [facility] [facility] 1930 Planned Disposition: Inpatient Rehab Anticipated Discharge Date: 04/06/19 Discharge Date: Expected LOS: 7 Initial Reviewer: [email or web address] Initial Review Date: 03/30/2019 Generated: 04/06/19 2:44 pm Comments DCP- Discharge Planning Updated by [id number]: Mark Benavidez on 04/05/19 11:[address] Patient Name: THUAN TAPAI Encounter No: [id number] : 1930 Primary Insurance: MEDICARE A & B Anticipated DC Date: 04-05-2019 Planned Disposition: Inpatient Rehab External Planned Provider: [facility] DCP follow-up note: CM RECEIVED ORDER FOR REHAB OR HOME HEALTH. CM SPOKE TO DR. RIBERA WHO REPORTS PT IS READY TO DISCHARGE BUT HAS NOT BEEN OUT OF BED AND POSSIBLY NEEDS REHAB BEFORE GOING BACK HOME. CM MET WITH PT IN ROOM TO DISCUSS DISCHARGE NEEDS AND PLANNING. CM DISCUSSED AVAILABILITY OF HOME HEALTH, REHAB SERVICES AND MEDICAL EQUIPMENT. PT THINKS SHE NEEDS REHAB BEFORE GOING HOME ALONE. CM DISCUSSED REHAB OPTIONS, PROVIDERS AND LOCATIONS. PT DOES NOT WANT [facility] AND ASKED FOR REHAB AT [facility]. PT REPORTS FAMILY TO TRANSPORT HOME AT DISCHARGE. IMPORTANT MESSAGE FROM MEDICARE PROVIDED AND EXPLAINED. CM OBTAINED ORDER FOR INPATIENT REHAB PRESCREENING AND PHYSICAL THERAPY EVAUATIONS. CM WAITING THERAPY EVALUATION RESULTS [facility] INPATIENT REHAB PRESCREENING BY [facility]. Mark Benavidez., CASE MANAGEMENT DCP- Discharge Planning Updated by [id number]: Nimisha Parada on 03/30/19 2:[address] Patient Name: THUAN TAPIA Admission Status: ER Accout number: [id number] Admission Date: 03-30-2019 : 1930 Admission Diagnosis: Attending: KINA RIBERA Current LOS: 1 Anticipated DC Date: Planned Disposition: Home Primary Insurance: MEDICARE A & B Discharge Planning Comments: CM attempted to meet with patient to complete initial dc planning assessment. Patient is confused. CM called jose luis Grey [phone] CM educated Manjit on the CM role and verbal consent given by patient to complete assessment. Patient lives at home alone where she is independent with her care. At discharge patient's family plans for her to return home and feels this is a safe discharge. CM discussed availability of home health, rehab services, and medical equipment. Plan to resume care with [facility] per Family VALENTINA signed Patient has a walker but no other medical equipment. Family denied known discharge needs at this time. Patient does have dialysis MWF @ [facility]. CM will continue to follow and will assist as needed with dc plans/needs. Crime Scene Investigator: Nimisha Parada DCPIA - Discharge Planning Initial Assessment Updated by [id number]: Nimisha Parada on 03/30/19 3:18 pm * Is the patient Alert and Oriented? Yes * How many steps to enter\exit or inside your home? ramp * PCP [facility] * Pharmacy [facility] - by [facility]ra * Preadmission Environment Home Alone * ADLs Independent * Equipment Walker * List name and contact numbers for known caregivers / representatives who currently or will assist patient after discharge: Manjit amaya - [phone] Pauly bailon [phone] * Verbal permission to speak to the caregivers and representatives has been obtained from the patient. Yes * Community resources currently utilized Home Health * Please name any agencies selected above. [facility] * Additional services required to return to the preadmission environment? No * Can the patient safely return to the preadmission environment? Yes * Has this patient been hospitalized within the prior 30 days at any hospital? No Coverage Notice Reviewer: [id number] - Mark Benavidez Notice Issued Date-Time: 04/05/2019 8:55 Notice Type: IM Discharge Notice Notice Delivered To: Patient Relationship to Patient: Principal Law Clerk Name: Delivery Method: HAND - Hand Delivered Shawna Days: Prior Verbal Notification: Recipient Understood Notice: Yes Recipient Signature: Yes Med Rec Note Co-signed by Attending: Coverage Notice Comment: Last DP export: 04/05/19 11:45 a Patient Name: THUAN TAPIA Page 19693 at 1344 All edits/amendments must be made on the electronic document DICTATION DATE: 04/06/19 134 ACID STRENGTH INSPECTOR: DEE 04/06/19 1344 RPT#: [id number] DC DATE: STATUS: ADM IN [facility] [address] [place] [address] END OF REPORT
--- NOTE | 2019-04-06 13:51 | MORECARE ---
CASE MANAGEMENT DISCHARGE SUMMARY PATIENT: THUAN TAPIA UNIT: [id number] ADM DATE: 03/30/19 AGE: 88 : 32 SEX: F ROOM/BED: D.2419 AUTHOR: TORI PUENTE PHYSICIAN: REFERRING PHYSICIAN: KINA RIBERA MD DATE OF SERVICE: 04/06/19 Discharge Plan Patient Name: THUAN TAPIA Facility: [facility]:[place] : 1930 Planned Disposition: Inpatient Rehab Anticipated Discharge Date: 04/06/19 Discharge Date: Expected LOS: 7 Initial Reviewer: [email or web address] Initial Review Date: 03/30/2019 Generated: 04/06/19 2:51 pm Comments DCP- Discharge Planning Updated by [id number]: Mark Benavidez on 04/06/19 12:[address] Patient Name: THUAN TAPIA Encounter No: [id number] : 1930 Primary Insurance: MEDICARE A & B Anticipated DC Date: 04-06-2019 Planned Disposition: Inpatient Rehab External Planned Provider: [facility] DCP follow-up note: DURING MULTIDICIPLINARY TEAM MEETING, CM SPOKE TO CHUCK OF INPATIENT REHAB, THEY PLAN TO ACCEPT PT WHEN MEDICALLY STABLE FOR REHAB. CHENTE ESCAMILLA INFORMED GROUP THAT PT IS STABLE AND PLANS DISCHARGE TO DAY TO REHAB. CM NOTIFIED PT IN AGREEMENT WITH DISCHARGE TO INPATIENT REHAB. [facility] IN[facility] TO CONTACT MED 2 NURSE WITH ROOM NUMBER WHEN READY TO ACCEPT PT AND NURSE REPORT. GOLD [place] DCP- Discharge Planning Updated by [id number]: Mark Benavidez on 04/05/19 11:[address] Patient Name: THUAN TAPIA Encounter No: [id number] : 1930 Primary Insurance: MEDICARE A & B Anticipated DC Date: 04-05-2019 Planned Disposition: Inpatient Rehab External Planned Provider: [facility] IN[facility] DCP follow-up note: CM RECEIVED ORDER FOR REHAB OR HOME HEALTH. CM SPOKE TO DR. RIBERA WHO REPORTS PT IS READY TO DISCHARGE BUT HAS NOT BEEN OUT OF BED AND POSSIBLY NEEDS REHAB BEFORE GOING BACK HOME. CM MET WITH PT IN ROOM TO DISCUSS DISCHARGE NEEDS AND PLANNING. CM DISCUSSED AVAILABILITY OF HOME HEALTH, REHAB SERVICES AND MEDICAL EQUIPMENT. PT THINKS SHE NEEDS REHAB BEFORE GOING HOME ALONE. CM DISCUSSED REHAB OPTIONS, PROVIDERS AND LOCATIONS. PT DOES NOT WANT [facility] AND ASKED FOR REHAB AT [facility]. PT REPORTS FAMILY TO TRANSPORT HOME AT DISCHARGE. IMPORTANT MESSAGE FROM MEDICARE PROVIDED AND EXPLAINED. CM OBTAINED ORDER FOR INPATIENT REHAB PRESCREENING AND PHYSICAL THERAPY EVAUATIONS. CM WAITING THERAPY EVALUATION RESULTS WELL INPATIENT REHAB PRESCREENING BY [facility]. Mark Benavidez., CASE MANAGEMENT DCP- Discharge Planning Updated by [id number]: Nimisha Parada on 03/30/19 2:[address] Patient Name: THUAN TAPIA Admission Status: ER Accout number: [id number] Admission Date: 03-30-2019 : 1930 Admission Diagnosis: Attending: KINA RIBERA Current LOS: 1 Anticipated DC Date: Planned Disposition: Home Primary Insurance: MEDICARE A & B Discharge Planning Comments: CM attempted to meet with patient to complete initial dc planning assessment. Patient is confused. CM called jose luis Grey [phone] CM educated Manjit on the CM role and verbal consent given by patient to complete assessment. Patient lives at home alone where she is independent with her care. At discharge patient's family plans for her to return home and feels this is a safe discharge. CM discussed availability of home health, rehab services, and medical equipment. Plan to resume care with [facility] per Family VALENTINA signed Patient has a walker but no other medical equipment. Family denied known discharge needs at this time. Patient does have dialysis MWF @ [facility]. CM will continue to follow and will assist as needed with dc plans/needs. Lowerator Operator: Nimisha Parada DCPIA - Discharge Planning Initial Assessment Updated by [id number]: Nimisha Parada on 03/30/19 3:18 pm * Is the patient Alert and Oriented? Yes * How many steps to enter\exit or inside your home? ramp * PCP [facility] * [facility] - by Mayra * Preadmission Environment Home Alone * ADLs Independent * Equipment Walker * List name and contact numbers for known caregivers / representatives who currently or will assist patient after discharge: Manjit amaya - [phone] Pauly bailon - [phone] * Verbal permission to speak to the caregivers and representatives has been obtained from the patient. Yes * Community resources currently utilized Home Health * Please name any agencies selected above. [facility] * Additional services required to return to the preadmission environment? No * Can the patient safely return to the preadmission environment? Yes * Has this patient been hospitalized within the prior 30 days at any hospital? No Coverage Notice Reviewer: [id number] Law Benavidez Notice Issued Date-Time: 04/05/2019 8:55 Notice Type: IM Discharge Notice Notice Delivered To: Patient Relationship to Patient: Scroll Machine Operator Name: Delivery Method: HAND - Hand Delivered Shawna Days: Prior Verbal Notification: Recipient Understood Notice: Yes Recipient Signature: Yes Med Rec Note Co-signed by Attending: Coverage Notice Comment: Last DP export: 04/06/19 12:44 p Patient Name: THUAN TAPIA Page [id number] at 1351 All edits/amendments must be made on the electronic document DICTATION DATE: 04/06/19 1351 BUYER TOBACCO HEAD: DEE 04/06/19 1351 RPT#: [id number] DC DATE: STATUS: ADM IN [facility] [address] [place] [address] END OF REPORT
--- NOTE | 2019-04-06 14:02 | NUR ---
I have reviewed this patient and I concur with the Shift Assessment completed by the Licensed Practical Nurse today this shift.
[2019-04-06 16:18] VITALS: BP 118/50
--- NOTE | 2019-04-06 17:22 | NUR ---
PREVIOUS PIV INFILTRATED. REMOVED PIV WITH CATHETER TIP FULLY INTACT. STARTED NEW PIV TO THE RIGHT FOREARM 22GA X1 ATTEMPT. PT TOLERATED WELL. ABX CURRENTLY INFUSING. WILL CTM.
--- NOTE | 2019-04-06 18:07 | NUR ---
PT TRANSFERED TO INPATIENT REHAB. PT SIGNED PROPER DISCHARGE INSTRUCTIONS AND REMOVED ALL VALUABLES FROM THE ROOM.
== END 2019-04-06 18:08 | DRG 871 ==
LOC: D.ER 08:36 → D.ICU 10:36 → D.M2 04-03 13:36 → D.ICU 04-03 15:35 → D.M2 04-04 13:02
PROVIDERS: Family Medicine; Internal Medicine Interventional Cardiology; ADMIT Internal Medicine Nephrology; ATTEND Internal Medicine Nephrology
PROC: B2151ZZ Fluoroscopy of Left Heart using Low Osmolar Contrast (ICD-10-PCS; 2019-04-03)
PROC: 4A023N7 Measurement of Cardiac Sampling and Pressure, Left Heart, Percutaneous Approach (ICD-10-PCS; 2019-04-03)
PROC: B2111ZZ Fluoroscopy of Multiple Coronary Arteries using Low Osmolar Contrast (ICD-10-PCS; principal; 2019-04-03 08:45)
DX: A41.9 Sepsis, unspecified organism (principal); N18.6 End stage renal disease; I21.4 Non-ST elevation (NSTEMI) myocardial infarction; J18.1 Lobar pneumonia, unspecified organism; I12.0 Hypertensive chronic kidney disease with stage 5 chronic kidney disease or end stage renal disease; I42.9 Cardiomyopathy, unspecified; E11.22 Type 2 diabetes mellitus with diabetic chronic kidney disease; K21.9 Gastro-esophageal reflux disease without esophagitis; E78.5 Hyperlipidemia, unspecified; I48.0 Paroxysmal atrial fibrillation; R06.02 Shortness of breath; R41.82 Altered mental status, unspecified; E11.65 Type 2 diabetes mellitus with hyperglycemia

== ENCOUNTER 2019-04-06 16:36 | Inpatient (IN) | payer MEDICARE, OTHER ==
[~2019-04-06] VITALS: Ht 152.4 cm; Wt 149.7 kg
[~2019-04-06 16:36] MED LIST changes: +ACETAMINOPHEN325 MG PO; +AMIODARONE HCL200 MG PO; +COREG6.25 MG PO; +FLORAJEN3 CAPS460 MG PO; +GLUCAGEN1 MG/VIAL IM; +GLUCAGEN1 MG/VIAL SC; +HUMULIN R100 U/ML SC; +LIPITOR20 MG PO; +ROCEPHIN 1 GM/D51 G1 IV
--- NOTE | 2019-04-06 18:19 | NUR ---
ARRIVED TO UNIT AT THIS TIME. NO ACUTE DISTRESS NOTED. STABLE. PT SITTING UP IN BED DRINKING MILKSHAKE, DENIES ANY NEEDS. CALL LIGHT IN REACH. WILL CONTINUE PLAN OF CARE.
--- NOTE | 2019-04-06 18:55 | NUR ---
BEDSIDE REPORT COMPLETE. PT LYING IN BED ALERT AND ORIENTED X3. DENIES ANY NEEDS OR PAIN. CAVANAUGH PATENT AND FREE OF KINKS. LEFT FISTULA DRESSING C/D/I. RIGHT FOREARM IV WITHOUT REDDNESS OR SWELLING. DRESSING C/D/I. CALL LIGHT AND WATER WITHIN REACH, FALL PRECAUTIONS IN PLACE. WILL CONTINUE TO MONITOR
[2019-04-06 23:01] VITALS: BP 135/46; BMI 18.7
--- NOTE | 2019-04-06 23:42 | NUR ---
PT LYING IN BED ON LEFT SIDE EYES CLOSED RESTING QUIETLY.
[2019-04-07 00:42] VITALS: BP 144/50
--- NOTE | 2019-04-07 03:55 | NUR ---
PT LYING IN BED ON RIGHT SIDE EYES CLOSED RESTING QUIETLY.
[2019-04-07 06:13] VITALS: BP 163/63
--- NOTE | 2019-04-07 06:17 | NUR ---
PT LYING IN BED EYES CLOSED RESTING QUIETLY.
--- NOTE | 2019-04-07 07:30 | NUR ---
REPORT RECEIVED. PT HAS RIGHT FOREARM SALINE LOCK. SHE IS A RESERVED LEFT ARM. SHE GETS DIALYSIS MWF. SHE HAS A CAVANAUGH. SHE HAS A STAGE 1 TO HER BUTTOCK. SHE HAS A MEPILEX ON HER BOTTOM. PT IS RESTING QUIETLY. NO COMPLAINTS OR NEEDS AT THIS TIME.
[2019-04-07 07:54] LABS: BASOPHILS 0.1 % (0-2); EOSINOPHILS 1.1 % (0-7); HEMATOCRIT 34.5 % (36.0-48.0); HEMOGLOBIN 11.2 g/dL (12-16); IMMATURE GRANULOCYTES 0.8 % (0-5); LYMPHOCYTES 9.5 % (15-50); MCH 30.1 pg (26.0-34.0); MCHC 32.5 g/dL (31.0-37.0); MCV 92.7 fL (80.0-100.0); MEAN PLATELET VOLUME 11.5 fL (7.4-10.4); MONOCYTES 9.4 % (2-11); NEUTROPHILS 79.1 % (40-80); PLATELET COUNT 194 10x3/uL (130-400); RBC 3.72 10x6/uL (4.00-5.40); RDW 14.4 % (11.5-14.5)
[2019-04-07 08:04] LABS: ANION GAP 13.2 mmol/L (8-16); CALCIUM 9.1 mg/dL (8.5-10.1); CARBON DIOXIDE 28.1 mmol/L (21.0-32.0); POTASSIUM - SERUM 4.3 mmol/L (3.5-5.1)
[2019-04-07 08:05] LABS: CREATININE - SERUM 4.7 mg/dL (0.6-1.3)
[2019-04-07 08:07] LABS: WBC 11.7 10x3/uL (4.8-10.8)
[2019-04-07 08:36] VITALS: BP 146/56
--- NOTE | 2019-04-07 09:45 | NUR ---
PT TOOK MEDICATIONS CRUSHED IN PUDDING. REPOSITIONED IN BED. VSS. NO COMPLAINTS OR NEEDS AT THIS TIME.
[2019-04-07 10:11] VITALS: Ht 152.4 cm; Wt 149.7 kg
--- NOTE | 2019-04-07 10:33 | RHP ---
PATIENT: THUAN TAPIA MEDICAL RECORD: [id number] ACCOUNT: [id number] LOCATION:[facility] : [birth year] ADMISSION DATE: 04/06/19 REHABILITATION HISTORY AND PHYSICAL EXAMINATION POST ADMISSION PHYSICIAN EXAMINATION DATE OF ADMISSION: 04/06/2019. ADMITTING DIAGNOSIS: Debility secondary sepsis. HISTORY OF PRESENT ILLNESS: The patient is an 88-year-old female patient who presented to the hospital with end-stage renal disease after being found on the floor. She had acute mental status changes, a right lower lobe pneumonia. Her troponin was elevated. Cardiology did see her during her stay. She was started on IV therapy. She had a speech therapy consult, found to have oropharyngeal dysphagia and has been placed on a pureed with thickened liquid consistency diet. Her only cardiac history is dysrhythmia and hypertension. She is on digoxin and diltiazem. She underwent a catheterization. She is on supplemental O2. Her white count has gone down since her initial stay. She is on IV antibiotic therapy. We are monitoring her lab values, monitoring her cardiac status closely. She has got deconditioning, debility, weakness, impaired mobility, gait disturbance. She is a high risk for fall and self-care deficits. These are all barriers to her discharge home. She lives at home alone, was independent with ADLs and mobility prior to this. Currently set up for mod assist for ADLs and mod assist for mobility and is only ambulating a couple of feet with PT at this time. She and her family would like for her to return home and also continue on outpatient hemodialysis. COMORBIDITIES: In this patient include diabetes, end-stage renal disease, altered mental status, pneumonia, shortness of breath, elevated troponin, hypertension, paroxysmal atrial fib, hyperlipidemia, leukocytosis, sepsis, weakness, gastroesophageal reflux disease. PAST MEDICAL HISTORY: Significant for CVA, TIA, neuropathy, weakness, dentures, diabetes, thyroid problems, arthritis, acid reflux, GI ulcers, and end-stage renal disease. PAST SURGICAL HISTORY: Includes hysterectomy and elbow fracture. ALLERGIES: SULFA. CURRENT MEDICATIONS: Include Rocephin 1 gram q.24 hours. She is on Floranex daily, Sensipar 30 mg daily, carvedilol 6.125 mg b.i.d. with meals, calcium carbonate two 750 mg daily, Synthroid 88 mcg daily, Atrovent 2 sprays b.i.d. She is on a low-resistant sliding scale of insulin, atorvastatin 20 mg q.h.s., Cordarone 200 mg b.i.d., MiraLax 17 g in 8 ounces of water daily, glucagon 1 mg per protocol, and Tylenol 650 q.4 hours p.r.n. HABITS: No current alcohol or tobacco use. FAMILY HISTORY: Noncontributory. SOCIAL HISTORY: The patient hopes to return back home and get back to her prior level of functioning. HISTORY AND PHYSICAL [id number] THUAN TAPIA REVIEW OF SYSTEMS: GENERAL: Does complain of weakness and fatigue. HEENT: Denies cold, cough, or congestion. CARDIOVASCULAR: Denies chest pain. PHYSICAL EXAMINATION: VITAL SIGNS: Stable, afebrile. Generally a thin elderly female, in no acute distress, alert upon exam. HEENT: Normocephalic and atraumatic. Mucosa moist. NECK: Supple, no lymphadenopathy. LUNGS: Clear in upper mittal. HEART: Regular rate and rhythm. No murmurs, rubs, or gallops. ABDOMEN: Benign. EXTREMITIES: No clubbing, cyanosis, or edema. NEUROLOGIC: She has got maybe 2/5 muscular strength in her proximal muscles of her lower extremities. LABORATORY DATA: White count is 11.7, H&H of 11 and 34, and platelet count was noted to be 194. Sodium is 136, potassium 4.3, BUN and creatinine of 45 and 4.7, blood sugar is noted to be 180. ASSESSMENT: This is an 88-year-old female patient admitted to the rehab with a working diagnosis of debility secondary to sepsis and end-stage renal disease. The patient has potential to make improvement. We will institute the following multidisciplinary therapies including, but not limited to physical, occupational, respiratory, speech, nutritional services, prosthetics and orthotics. Given her complex medical condition and risks for more complications, rehabilitation services cannot be provided at a low level of care such as penitentiary facility. PLAN: 1. Admit to [facility] rehab for an intensive inpatient therapy to include the following disciplines: A. Physical therapy to improve gait, all transfer skills and bed mobility to a modified independent level. B. Occupational therapy to improve activities of daily living to a modified independent level. C. Case management to assist with discharge planning and placement options. D. Nutrition to assist with nutritional needs. E. Rehabilitation nursing to assist in monitoring the patient's underlying medical conditions and to assist with any type of bowel or bladder management. 2. The patient's current medication and medical care will be continued. 3. The patient will be placed on standard fall precautions. 4. The patient's estimated length of stay is approximately 7-10 days. 5. We will discuss the patient during care team staff meeting this week. TRANSINT:[id number] Voice Confirmation ID: [id number] DOCUMENT ID: [id number] GERA notes whether there has been none or any medical/functional change since admission: - GERA attests patient continues to be appropriate for IRF: HISTORY AND PHYSICAL [id number] THUAN TAPIA,BORIS MILNER MD at 1033 CC: [id number] DICTATION DATE: 04/07/19911 PRIMARY MILL ROLLER: 04/07/19 1019 ADM IN [id number] [id number]
--- NOTE | 2019-04-07 11:50 | NUR ---
BLOOD SUGAR 142. NO INSULIN COVERAGE NEEDED. FOOD DELIVERED. CRUSHED MEDS GIVEN WITH LUNCH.
[2019-04-07 12:00] VITALS: BP 140/47
--- NOTE | 2019-04-07 13:31 | NUR ---
PT SITTING UP IN BED. NO NEEDS AT THIS TIME.
--- NOTE | 2019-04-07 17:30 | NUR ---
IV TO RIGHT FOREARM FLUSHED. IV ROCEPHIN STARTED. PT SITTING UP IN BED EATING DINNER. NO NEEDS AT THIS TIME.
[2019-04-07 18:00] VITALS: BP 172/63
[2019-04-07 18:29] VITALS: BP 172/63
--- NOTE | 2019-04-07 19:23 | NUR ---
RESTING IN BED WITH EYES CLOSED AND RESPIRATIONS UNLABORED. O2/1.5L ON PER NASAL CANNULA. LEFT ARM FISTUALA INTACT. CAVANAUGH PATENT. RIGHT ARM SALINE LOCK INTACT WITH NO SIGNS OF INFILTRATION. NO ACUTE DISTRESS NOTED. CALL LIGHT IN REACH.
--- NOTE | 2019-04-07 22:35 | NUR ---
NO DIALYSIS TODAY. BATTERY TESTER SELIN NOTIFIED AND RENAL JOSE SILVERIO NOTIFIED. NEW ORDER RECIEVED TO CONSULT RENAL, AND THAT PATIENT WOULD HAVE DIALYSIS TOMORROW.
--- NOTE | 2019-04-07 23:49 | NUR ---
RESTING IN BED WITH EYES CLOSED AND RESPIRAITONS UNLABORED. O2/1.5L ON PER NASAL CANNULA. NO DISTRESS NOTED. CALL LIGHT IN REACH
[2019-04-08 00:13] VITALS: BP 159/65
--- NOTE | 2019-04-08 03:57 | NUR ---
RESTING QUIETLY. RESPIRATIONS UNLBORED. NO DISTRESS NOTED.
--- NOTE | 2019-04-08 05:18 | NUR ---
AWAKE AND RESTING IN BED. NO ACUTE CHANGES IN CONDITION THIS SHIFT. O2/1.5L ON PER NASAL CANNULA. CAVANAUGH PATENT. 100ML OUTPUT. HAS DRANK SMALL AMOUNTS OF THICKENED LIQUID THIS SHIFT.
[2019-04-08 06:25] VITALS: BP 176/62
--- NOTE | 2019-04-08 08:55 | NUR ---
PT AM MEDS ADMINISTERED. PT DENIES NEEDS.W CTM.
[2019-04-08 11:05] VITALS: BP 143/59
--- NOTE | 2019-04-08 12:55 | NUR ---
PATIENT TAKEN DOWN TO DIALYSIS CLINIC
--- NOTE | 2019-04-08 16:24 | NUR ---
PATIENT BROUGHT BACK TO ROOM AFTER DIALYSIS TREATMENT BY THIS NURSE
[2019-04-08 18:02] VITALS: BP 168/70
--- NOTE | 2019-04-08 19:19 | NUR ---
AWAKE AND ALERT. RESTING IN BED WITH O2/1.5L ON PER NASAL CANNULA. LEFT FISTULA DRESSING INTACT. STATES SHE HAD DIALYSIS TODAY. CAVANAUGH PATENT WITH SCANT URINE OUTPUT. RIGHT WRIST SALINE LOCK INTACT WITH NO SIGNS OF INFILTRATION. NO ACUTE DISTRESS NOTED. CALL LIGHT IN REACH.
[2019-04-09] VITALS (7 sets, daily range): BP systolic 135–176; BP diastolic 47–57
--- NOTE | 2019-04-09 01:44 | NUR ---
RESTING IN BED WITH RESPIRATIONS UNALBORED. NO DISTRESS NOTED. CALL LIGHT IN REACH.
--- NOTE | 2019-04-09 05:27 | NUR ---
QUIET HOURS. NO ACUTE CHANGES IN CONDITION THIS SHIFT. NO ACUTE DISTRESS NOTED. O2 ON, CAVANAUGH PATENT BUT VERY LITTLE OUTPUT(RENAL).
--- NOTE | 2019-04-09 09:00 | NUR ---
PATIENT SITTING UP IN BED FOR BREAKFAST. RENAL ADA, PUREE DIET WITH NECTAR THICK LIQUIDS. CALL LIGHT WITHIN REACH. VOICES NO NEEDS AT THIS TIME. WILL CONTINUE WITH PLAN OF CARE
--- NOTE | 2019-04-09 12:40 | NUR ---
PATIENT HELPED TO BATHROOM. MIN TO MOD ASST FOR GETTING OUT OF BED. PATIENT ABLE TO LIFT SELF UP OFF OF WHEELCHAIR TO GRAB BAR AND ON TO TOILET BY SELF
--- NOTE | 2019-04-09 14:00 | NUR ---
I have reviewed this patient and I concur with the Shift Assessment completed by the Licensed Practical Nurse today this shift.
--- NOTE | 2019-04-09 20:11 | NUR ---
AWAKE AND ALERT. RESTING IN BED. O2/1.5L ON PER NASAL CANNULA. LEFT ARM FISTULA INTACT. CAVANAUGH PATENT. NO ACUTE DISTRESS NOTED.
--- NOTE | 2019-04-10 01:19 | NUR ---
CONTINUES RESTING IN BED WITH EYES CLOSED AND RESPIRATIONS UNLABORED. O2/1.5L ON PER NASAL CANNULA. NO DISTRESS NOTED.
--- NOTE | 2019-04-10 05:09 | NUR ---
QUIET HOURS. HAS SLEPT IN LONG INTERVALS AWAKENING TO GO TO THE BATHROOM 3 TIMES THIS SHIFT. NO ACUTE CHANGES IN CONDITION THIS SHIFT. NO DISTRESS NOTED.
--- NOTE | 2019-04-10 05:10 | NUR ---
QUIET HOURS. RESTING IN BED WITH NO DISTRESS NOTED. OXYGEN ON, CAVANAUGH PATENT. CONDITION UNCHANGED THIS SHIFT. CALL LIGHT IN REACH.
[2019-04-10 05:42] VITALS: BP 158/56
[2019-04-10 07:39] LABS: HEMOGLOBIN 10.5 g/dL (12-16); MCH 30.3 pg (26.0-34.0); MCHC 32.8 g/dL (31.0-37.0); MCV 92.2 fL (80.0-100.0); MEAN PLATELET VOLUME 11.5 fL (7.4-10.4); PLATELET COUNT 207 10x3/uL (130-400); RBC 3.47 10x6/uL (4.00-5.40); RDW 14.3 % (11.5-14.5); WBC 9.3 10x3/uL (4.8-10.8)
[2019-04-10 08:03] VITALS: BP 174/53
--- NOTE | 2019-04-10 08:06 | NUR ---
ALERT AND ORIENTED. HAVING THERAPY THIS AM. NO DISTRESS NOTED.
[2019-04-10 08:08] LABS: ANION GAP 14.9 mmol/L (8-16); CALCIUM 8.9 mg/dL (8.5-10.1); CARBON DIOXIDE 26.4 mmol/L (21.0-32.0); CREATININE - SERUM 5.2 mg/dL (0.6-1.3); POTASSIUM - SERUM 4.3 mmol/L (3.5-5.1)
[2019-04-10 10:11] LABS: ANISOCYTOSIS OCC; EOSINOPHILS 4 % (0-7); LYMPHOCYTES 18 % (15-50); MONOCYTES 8 % (2-11); NEUTROPHILS 67 % (40-80); PLATELET ESTIMATE NORMAL
--- NOTE | 2019-04-10 11:15 | NUR ---
DR HIGGINBOTHAM HERE EARLIER. ASKED HIM IF PATIENT GETTING DIALYSIS TODAY. (MISSED ON WEDNESDAY AND WAS DONE ON SAT). HE SAID HE WOULD CHECK AND SEE IF SHE WAS GETTING IT TODAY OR . ALSO SPOKE WITH MIRANDA ALARCON IN DIALYSIS TO SEE IF SHE HAD HEARD WHICH DAY. SHE DID NOT KNOW AT THIS TIME. SCHEDULE IS FOR BUT SINCE SHE HAD IT ON WED, DR HIGGINBOTHAM WILL LET US KNOW IF HE WANTS IT TODAY OR TOMORROW.
[2019-04-10 12:20] VITALS: BP 165/55
--- NOTE | 2019-04-10 13:45 | NUR ---
PARTICIPATED IN THERAPY THIS MORNING.
--- NOTE | 2019-04-10 15:08 | NUR ---
Nutrition Follow-up: Chart reviewed. HD m/w/f. Stage I PU to coccyx. Meds and labs reviewed. Diet: Renal ADA, nectar thick PO intake: ~41% average x last 10 meals Pt report a "typical" appetite. States that she is willing to drink butter pecan Nepro if sent on meal trays. Last wt: 96# (04/07/19). +BM Will add Nepro to meal trays. Continue current diet. RD Following
--- NOTE | 2019-04-10 16:01 | NUR ---
SPOKE WITH CORBY ELDRIDGE FOR RENAL RE: DOES PATIENT NEED TO BE MWF OR TTHS DISLYSIS SCHEDULE. SHE IS TO CALL ME BACK WITH ANSWER.
[2019-04-10 16:40] VITALS: BP 171/55
--- NOTE | 2019-04-10 18:01 | NUR ---
NO CHANGE IN ASSESSMENT. REPOSITIONED IN BED. CL IN REACH.
--- NOTE | 2019-04-10 19:05 | NUR ---
BEDSIDE REPORT COMPLETE. PT LYING IN BED EYES CLOSED RESTING QUIETLY. AROUSES SPONTANEOUSLY, DENIES ANY NEEDS OR PAIN. CAVANAUGH PATENT AND FREE OF KINKS. CONTINUES ON 1.5L O2 VIA NC. RIGHT FOREARM IV WITHOUT REDNESS OR SWELLING. DRESSING C/D/I. FLUSHES WITHOUT DIFFICULTY. CALL LIGHT AND NECTAR THICK WATER WITHIN REACH, FALL PRECAUTIONS IN PLACE. WILL CONTINUE TO MONITOR
--- NOTE | 2019-04-10 21:35 | NUR ---
TRANSPORTED PT VIA BED TO DIALYSIS.
--- NOTE | 2019-04-11 00:35 | NUR ---
TRANSPORTED PT FROM DIALYSIS VIA BED. 1.5L REMOVED PER DORIAN DAMON. NO SIGNS OF DISTRESS NOTED. VS STABLE.
[2019-04-11 00:40] VITALS: BP 146/90
--- NOTE | 2019-04-11 02:33 | NUR ---
PT LYING IN BED ON LEFT SIDE EYES CLOSED RESTING QUIETLY
--- NOTE | 2019-04-11 05:10 | NUR ---
ASSISTED PT TO RESTROOM AND BACK TO BED VIA W/C WITH MIN ASSIST. NO CONCERNS VOICED AT THIS TIME. F/C EMPTIED 30ML YELLOW CLEAR URINE.
[2019-04-11 05:52] VITALS: BP 147/49
[2019-04-11 07:42] VITALS: BP 163/53
--- NOTE | 2019-04-11 12:35 | NUR ---
PATIENT ADMITTED TO REHAB FROM ACUTE FLOOR. PCP IS DR. JIM SIMS. DME AT HOME IS A WALKER. [place] [facility] [place] A CLIENT OF [facility]. DISCHARGE PLANS ARE FOR HER TO RETURN TO HER HOME. WILL CONTINUE TO FOLLOW WITH PATIENT.
[2019-04-11 12:51] VITALS: BP 160/78
--- NOTE | 2019-04-11 14:48 | NUR ---
PARTICIPATED IN THERAPY THIS MORISAVAGE.
--- NOTE | 2019-04-11 16:44 | NUR ---
NO CHANGE IN ASSESSMENT. RESTING. RESP EVEN AND UNLABORED.
[2019-04-11 18:07] VITALS: BP 152/47
--- NOTE | 2019-04-11 20:21 | NUR ---
GREETED PATIENT AND INTRODUCED MYSELF HER NURSE. PATIENT IS LAYING IN BED IN SUPINE POSITION. O2 AT 1.5L IN USE VIA NC. RESPIRATIONS EVEN. NO S/S OF DISTRESS. STATES THAT PAIN IS 6/10 ENTIRE BACK. DENIES ANY FURTHER NEEDS AT THIS TIME. CALL LIGHT IN REACH.
[2019-04-11 21:29] VITALS: BP 142/48
[2019-04-12 00:05] VITALS: BP 133/44
--- NOTE | 2019-04-12 04:07 | NUR ---
PATIENT RESTING QUIETLY WITH EYES CLOSED. O2 AT 1.5L VIA NC IN USE. RESPIRATIONS EVEN. NO S/S OF DISTRESS. SR UP X 2. BED IN LOWEST POSITION. CALL LIGHT IN REACH.
[2019-04-12 06:05] VITALS: BP 145/46
[2019-04-12 07:23] LABS: BASOPHILS 0.2 % (0-2); EOSINOPHILS 2.4 % (0-7); HEMATOCRIT 31.9 % (36.0-48.0); HEMOGLOBIN 10.5 g/dL (12-16); IMMATURE GRANULOCYTES 0.5 % (0-5); LYMPHOCYTES 16.4 % (15-50); MCH 30.3 pg (26.0-34.0); MCHC 32.9 g/dL (31.0-37.0); MCV 92.2 fL (80.0-100.0); MEAN PLATELET VOLUME 11.5 fL (7.4-10.4); MONOCYTES 9.2 % (2-11); NEUTROPHILS 71.3 % (40-80); PLATELET COUNT 191 10x3/uL (130-400); RBC 3.46 10x6/uL (4.00-5.40); RDW 14.5 % (11.5-14.5); WBC 10.3 10x3/uL (4.8-10.8)
[2019-04-12 07:39] LABS: CALCIUM 8.2 mg/dL (8.5-10.1); CARBON DIOXIDE 28.4 mmol/L (21.0-32.0); POTASSIUM - SERUM 4.4 mmol/L (3.5-5.1)
--- NOTE | 2019-04-12 08:45 | NUR ---
PT AM MEDS ADMINISTERED. PT DENIES NEEDS. WCTM.
--- NOTE | 2019-04-12 10:05 | NUR ---
PT IV VANC STOPPED RIGHT AFTER STARTING D/T IV LEAKING AND NO LONGER IN PLACE. IV REMOVED. ATTEMPTED X2 TO RESTART IV. WILL NORIFY DORIAN ANGUIANO OF NEED FOR IV PLACEMENT.
[2019-04-12 11:55] VITALS: BP 143/46
--- NOTE | 2019-04-12 13:27 | NUR ---
PT REMOVED AT THIS TIME PER CAVANAUGH REMOVAL PROTOCOL.
[2019-04-12 21:17] VITALS: BP 121/55
--- NOTE | 2019-04-12 21:30 | NUR ---
BACK FROM DIALYSIS. NURSE REPORTED 2 LITERS REMOVED. RESTING IN BED WITH NO DISTRESS NOTED. RIGHT SALINE LOCK INTACT. ANTIBIOTIC DOSE GIVEN. LEFT FISTULA ITNACT. NO DISTRESS NOTED. CALL LIGHT IN REACH.
--- NOTE | 2019-04-13 01:01 | NUR ---
SLEEPING WITH RESPIRAITONS UNLABORED. NO DISTRESS NOTED. CALL LIGHT IN REACH.
--- NOTE | 2019-04-13 05:11 | NUR ---
QUIET HOURS. NO ACUTE CHANGES IN CONDITION THIS SHIFT. IV IS OUT. MESSAGE LEFT FOR DR LANDON ON ROUNDING SHEET. WARM PACK APPLIED TO SITE. RESPIRATIONS UNLABORED. NO DISTRESS NOTED.
[2019-04-13 06:17] VITALS: BP 152/48
--- NOTE | 2019-04-13 08:10 | NUR ---
PT AM MEDS ADMINISTERED. DR HIGGINBOTHAM IN TO SEE PT. TOLD DR OF NO IV ACCESS AND DR HIGGINBOTHAM STATED SHE HAD HAD ENOUGH ROCEPHIN AND DISCONTINUED THE ORDER.
[2019-04-13 12:16] VITALS: BP 150/45
[2019-04-13 19:34] VITALS: BP 147/47
--- NOTE | 2019-04-13 20:03 | NUR ---
RESTING IN BED WITH RESPIRATIONS UNLABORED. ON ROOM AIR WITH O2 SATURATION 98%. LEFT ARM FISTULA INTACT. NO DISTRESS NOTED. CALL LIGHT IN REACH.
[2019-04-13 23:20] VITALS: BP 147/50
--- NOTE | 2019-04-14 01:28 | NUR ---
SLEEPING WITH RESPIRTIONS UNLABORED. NO DISTRESS NOTED. CALL LIGHT IN REACH.
[2019-04-14 05:23] VITALS: BP 154/45
--- NOTE | 2019-04-14 05:35 | NUR ---
QUIET HOURS. NO ACUTE CHANGES IN CONDITION THIS SHIFT. NO DISTRESS NOTED. BS 121. CALL LIGHT IN REACH. 93% O2 SATURATION ON ROOM AIR.
--- NOTE | 2019-04-14 08:50 | NUR ---
PT AM MEDS ADMINISTERED. PT DENIES NEEDS. WCTM.
[2019-04-14 12:04] VITALS: BP 147/44
[2019-04-14 19:30] VITALS: BP 117/45
--- NOTE | 2019-04-14 19:40 | NUR ---
PT LYING IN BED ALERT AND ORIENTED X4. NO CONCERNS VOICED. DENIES ANY NEEDS. NO SIGNS OF DISTRESS NOTED. CONTINUES ON 2L VIA NC
--- NOTE | 2019-04-14 22:05 | NUR ---
PT IS RESTING QUIETLY IN BED WITH EYES CLOSED. RESPS ARE EVEN AND UNLABORED. NO ACUTE DISTRESS NOTED.
--- NOTE | 2019-04-14 23:36 | NUR ---
I have reviewed this patient and I concur with the Shift Assessment completed by the Licensed Practical Nurse today this shift.
[2019-04-15 00:01] VITALS: BP 158/46
--- NOTE | 2019-04-15 03:19 | NUR ---
RESTING IN BED WITH EYES CLOSED.
--- NOTE | 2019-04-15 06:32 | NUR ---
PT ASSISTED TO THE BATHROOM WITH MIN ASSIST. NO FURTHER NEEDS VOICED.
[2019-04-15 06:35] VITALS: BP 164/49
--- NOTE | 2019-04-15 08:54 | NUR ---
ALERT AND ORIENTED. NO C/O PAIN. L ARM FISTULA. RESP EVEN AND UNLABORED ON RA. CL IN REACH.
[2019-04-15 11:55] VITALS: BP 146/57
[2019-04-15 16:15] VITALS: BP 151/50
--- NOTE | 2019-04-15 16:40 | NUR ---
NO CHANGE IN ASSESSMENT. NO C/O PAIN. RESTING IN BED. CL IN REACH.
--- NOTE | 2019-04-15 23:36 | NUR ---
I have reviewed this patient and I concur with the Shift Assessment completed by the Licensed Practical Nurse today this shift.
[2019-04-16] VITALS: BP 149/50
--- NOTE | 2019-04-16 02:27 | NUR ---
RESTING IN BED WITH EYES CLOSED.
--- NOTE | 2019-04-16 05:58 | NUR ---
PT RESTING IN BED WITH EYES OPEN. NO ACUTE DISTRESS NOTED.
[2019-04-16 06:07] VITALS: BP 118/74
--- NOTE | 2019-04-16 07:31 | NUR ---
ALERT AND ORIENTED. NO C/O PAIN. RESP EVEN AND UNLABORED. CL IN REACH.
[2019-04-16 11:59] VITALS: BP 140/65
--- NOTE | 2019-04-16 13:33 | NUR ---
RESTING WO DISTRESS. RESP EVEN AND UNLABORED. NO C/O PAIN. CL IN REACH.
[2019-04-16 16:21] VITALS: BP 157/50
--- NOTE | 2019-04-16 16:34 | NUR ---
NO CHANGE IN ASSESSMENT. NO C/O PAIN. CL IN REACH.
--- NOTE | 2019-04-16 17:37 | NUR ---
RREFUSED SHOWER. ASKED HER TWO TIMES. SHE STATED "NO, I'M NOT TAKING A SHOWER I'M TOO COLD." THEN, OFFERED TO LET HER WASH UP AT THE SINK. SHE SAID NO AGAIN.
--- NOTE | 2019-04-16 19:12 | NUR ---
PT RESTING IN BED WITH EYES OPEN. PT TRIED TO EAT HER SUPPER, BUT STATED: "ILL JUST WAIT FOR MY BREAKFAST." I INFORMED HER IT WAS 7PM, AND SHE STATED: "WELL, THIS TASTES BAD, SO I WILL JUST WAIT." LEFT ARM FISTULA NOTED WITH GOOD BRUITT AND THRILL. VSS. NO FURTHER NEEDS VOICED. SR'S ARE UP X 2 IN BED. CALL LIGHT AND BEDSIDE TABLE ARE WITHIN EASY REACH.
[2019-04-16 19:25] VITALS: BP 156/45
--- NOTE | 2019-04-16 21:25 | NUR ---
I have reviewed this patient and I concur with the Shift Assessment completed by the Licensed Practical Nurse today this shift.
--- NOTE | 2019-04-16 23:24 | NUR ---
PT RESTINGIN BED WITH EYES CLOSED. NO ACUTE DISTRESS NOTED.
--- NOTE | 2019-04-17 04:10 | NUR ---
RESTING IN BED WITH EYES CLOSED.
[2019-04-17 05:44] VITALS: BP 148/44
--- NOTE | 2019-04-17 07:23 | NUR ---
IN THERAPY AT THIS TIME. NO C/O PAIN.
[2019-04-17 07:24] LABS: ANION GAP 11.5 mmol/L (8-16); CALCIUM 7.6 mg/dL (8.5-10.1); CARBON DIOXIDE 27.2 mmol/L (21.0-32.0); CREATININE - SERUM 5.8 mg/dL (0.6-1.3); POTASSIUM - SERUM 4.7 mmol/L (3.5-5.1)
[2019-04-17 08:38] LABS: BASOPHILS 0.6 % (0-2); EOSINOPHILS 1.9 % (0-7); HEMATOCRIT 32.6 % (36.0-48.0); HEMOGLOBIN 10.8 g/dL (12-16); IMMATURE GRANULOCYTES 0.2 % (0-5); LYMPHOCYTES 22.1 % (15-50); MCH 30.6 pg (26.0-34.0); MCHC 33.1 g/dL (31.0-37.0); MCV 92.4 fL (80.0-100.0); MEAN PLATELET VOLUME 11.4 fL (7.4-10.4); MONOCYTES 9.8 % (2-11); NEUTROPHILS 65.4 % (40-80); PLATELET COUNT 160 10x3/uL (130-400); RBC 3.53 10x6/uL (4.00-5.40); RDW 14.3 % (11.5-14.5); WBC 9.4 10x3/uL (4.8-10.8)
[2019-04-17 11:41] VITALS: BP 149/45
--- NOTE | 2019-04-17 16:00 | NUR ---
Nutrtion Follow-up: Diet: Renal ADA Puree with nectar thick liquids PO intake: ~62% average x last 10 meals/snacks Pt reports that she is eating better and appetite improved. Continue current nutrition regimen. RD following.
--- NOTE | 2019-04-17 19:04 | NUR ---
JOSE IN IN HEMODIALYSIS AT THIS TIME.
--- NOTE | 2019-04-17 20:01 | NUR ---
RETURNED FORM DIALYSIS. ALERT AND ORIENTED. RESPIRATIONS UNLABORED. LEFT FISTULA INTACT WITH BANDAGE DRY AND INTACT. DIALYSIS NURSE STATES SHE PULLED OFF 1.7L OF FLUID. ASSISTED TO BED AND SUPPER TRAY GIVEN. NO ACUTE DISTRESS NOTED.
[2019-04-17 20:37] VITALS: BP 141/43
--- NOTE | 2019-04-17 23:41 | NUR ---
RESTING IN BED WITH RESPIRATIONS UNLABORED. NO DISTRESS NOTED. CALL LIGHT IN REACH.
[2019-04-18 00:17] VITALS: BP 146/42
--- NOTE | 2019-04-18 02:33 | NUR ---
SLEEPING WITH RESPIRATIONS UNALBORED. NO DISTRESS NOTED.
--- NOTE | 2019-04-18 05:42 | NUR ---
QUIET HOURS. NO ACUTE CHANGES IN CONDITION THIS SHIFT. RESPIRATIONS UNLABORED. CALL LIGHT IN REACH.
[2019-04-18 05:59] VITALS: BP 161/45
[2019-04-18 07:41] VITALS: BP 166/49
--- NOTE | 2019-04-18 08:01 | NUR ---
ALERT AND ORIENTED. NO C/O PAIN. RESP EVEN AND UNLABORED. CL IN REACH.
[2019-04-18 11:12] VITALS: BP 138/68
--- NOTE | 2019-04-18 12:31 | NUR ---
SPOKE WITH PATIENT AND SHE FEELS A [facility] DISCHARGE WOULD BE TO THE [facility] SHE IS NOT READY TO BE HOME ALONE. REFERRAL HAS BEEN FAXED TO THE [facility] FOR POSSIBLE ADMISSION. WILL CONTINUE TO FOLLOW WITH PATIENT.
--- NOTE | 2019-04-18 13:24 | NUR ---
PARTICIPATED IN THERAPY TODAY. RESTING AT THIS TME. CL IN REACH.
--- NOTE | 2019-04-18 16:38 | NUR ---
NO CHANGE IN ASSESSMENT. RESTING WO DISTRESS. CL IN REACH.
[2019-04-18 18:26] VITALS: BP 159/53
--- NOTE | 2019-04-18 18:59 | NUR ---
AWAKE AND ALERT RESTING IN BED. RESPIRATIONS UNLABORED. LEFT FISTULA INTACT. NO C/O PAIN. STATES SHE HAD A GOOD DAY. NO NEEDS VOICED. CALL LIGHT IN REACH.
[2019-04-18 20:00] VITALS: BP 146/42
[2019-04-19 00:08] VITALS: BP 149/47
--- NOTE | 2019-04-19 00:50 | NUR ---
SLEEPING IN BED WITH RESPIRATIONS UNLABORED. NO DISTRESS NOTED.
[2019-04-19 05:57] VITALS: BP 149/47
[2019-04-19 05:59] VITALS: BP 157/44
--- NOTE | 2019-04-19 06:08 | NUR ---
QUEIT HOURS. RESTING IN BED WITH NO DISTRESS NOTED. NO ACUTE CHANGES IN CONDITION THIS SHIFT. LEFT ARM FISTULA INTACT. CALL LIGHT IN REACH.
--- NOTE | 2019-04-19 06:12 | NUR ---
PATIENT JUST CALLED AND STATED SHE VOIDED A SMALL AMOUNT INCONTINENT. RARELY VOIDS. INCONTIENCE CARE GIVEN. I&O ADJUSTED.
[2019-04-19 07:02] LABS: BASOPHILS 0.7 % (0-2); EOSINOPHILS 2.2 % (0-7); HEMATOCRIT 32.2 % (36.0-48.0); HEMOGLOBIN 10.4 g/dL (12-16); IMMATURE GRANULOCYTES 0.2 % (0-5); LYMPHOCYTES 23.7 % (15-50); MCH 30.1 pg (26.0-34.0); MCHC 32.3 g/dL (31.0-37.0); MCV 93.3 fL (80.0-100.0); MONOCYTES 10.3 % (2-11); NEUTROPHILS 62.9 % (40-80); PLATELET COUNT 146 10x3/uL (130-400); RBC 3.45 10x6/uL (4.00-5.40); RDW 14.2 % (11.5-14.5); WBC 8.4 10x3/uL (4.8-10.8)
[2019-04-19 07:21] LABS: ANION GAP 9.2 mmol/L (8-16); CALCIUM 7.8 mg/dL (8.5-10.1); CARBON DIOXIDE 28.6 mmol/L (21.0-32.0); CREATININE - SERUM 5.2 mg/dL (0.6-1.3); POTASSIUM - SERUM 4.8 mmol/L (3.5-5.1)
--- NOTE | 2019-04-19 08:03 | NUR ---
PT IN THERAPY GYM EATING BREAKFAST, DENIES NEEDS. WCTM.
--- NOTE | 2019-04-19 09:35 | NUR ---
PATIENT CHAIR TIME IS 11:45. WILL CONTINUE TO FOLLOW WITH PATIENT
[2019-04-19 13:23] VITALS: BP 132/42
--- NOTE | 2019-04-19 15:18 | NUR ---
PATIENT HAS BEEN ACCEPTED TO THE [facility] AND WILL DISCHARGE THERE IN AM. WILL CONTINUE TO FOLLOW WITH PATIENT
--- NOTE | 2019-04-19 17:30 | NUR ---
PT EATING DINNER, DENIES NEEDS. WCTM.
[2019-04-19 18:19] VITALS: BP 145/46
--- NOTE | 2019-04-19 18:45 | NUR ---
PT TRANSPORTED TO DIALYSIS VIA BED BY DIALYSIS NURSE.
[2019-04-19 20:45] VITALS: BP 145/46
--- NOTE | 2019-04-19 21:17 | NUR ---
DIRECTOR OF VOCATIONAL TRAINING KRISTI CALLED REPORT. 2L REMOVED VS 137/51 HR 51 T 97.9 RR 16.
--- NOTE | 2019-04-19 21:35 | NUR ---
RECEIVED PT FROM DIALYSIS VIA BED ACCOMPANIED BY DIALYSIS NURSE.
--- NOTE | 2019-04-19 23:56 | NUR ---
PT LYING IN BED EYES CLOSED RESTING QUIETLY. RR EVEN AND UNLABORED.
[2019-04-20 00:01] VITALS: BP 150/39
--- NOTE | 2019-04-20 03:13 | NUR ---
PT LYING IN BED ON LEFT SIDE EYES CLOSED RESTING QUIETLY.
[2019-04-20 05:29] VITALS: BP 156/44
--- NOTE | 2019-04-20 05:38 | NUR ---
PT LYING IN BED EYES CLOSED RESTING. EASILY AROUSED WITH VERBAL STIMULI. DENIES ANY NEEDS OR PAIN. FSBS 131. VS STABLE. WILL CONTINUE TO MONITOR
--- NOTE | 2019-04-20 07:40 | NUR ---
PT AM MEDS ADMINISTERED. PT DENIES NEEDS. WCTM.
--- NOTE | 2019-04-20 11:00 | NUR ---
PATIENT HAS BEEN ACCEPTED TO THE [facility] AND WILL DISCHARGE THERE THIS AM. HER NEPHEW ANITA HAS BEEN NOTIFIED OF DISCHARGE. PATIENT WILL CONTINUE WITH SAME HD SCHEDULE ON AT 11:45 AT [facility] WHERE SEE WILL FOLLOW WITH DR. RIBERA. AN APPOINTMENT WITH DR. JIM SIMS WILL BE MADE AT TIME OF DISCHARGE FROM FACILITY. PATIENT CHOICE FORM AND IMFM FORMS SIGNED, COPY GIVEN TO PATIENT AND FILED IN CHART. DISCHARGE INSTRUCTIONS FAXED TO PCP AND TO SNF.
--- NOTE | 2019-04-20 11:08 | NUR ---
PT DISCHARGED TO THE [facility] WITH [facility] STAFF. DISCHARGE INSTRUCTIONS REV'D WITH PT AND ORDERS GIVEN TO STAFF. REPORT CALLED TO ABRAHAM AT THE [facility].
--- NOTE | 2019-06-20 09:55 | DS ---
PATIENT:THUAN TAPIA :34 MEDICAL RECORD: [id number] DISCHARGE SUMMARY ADMISSION DATE: 04/06/19 DISCHARGE DATE: 04/20/19 This is a discharge dated 04/20/2019 from inpatient rehabilitation. PRIMARY DIAGNOSES: Decreased functional ability and ability to provide activities of daily living secondary to debility related to sepsis. SECONDARY DIAGNOSES: 1. End-stage renal disease, on chronic hemodialysis 3 times weekly. 2. History of cerebrovascular accident. 3. Oropharyngeal dysphagia. 4. Hypertension. 5. Diabetes. 6. Paroxysmal atrial fibrillation. 7. Hyperlipidemia. 8. Arthritis. 9. Gastroesophageal reflux disease. 10. Hypothyroidism. 11. Frequent falls. 12. Anemia of chronic disease. 13. Pneumonia. 14. Hyponatremia. CONSULTANTS FOLLOWING THIS HOSPITAL STAY: Dr. Rodriguez with nephrology. HOSPITAL COURSE: Full H&P is located elsewhere on the chart on this 88-year-old female who was admitted to inpatient rehab for physical therapy and occupational therapy to improve gait, transfer skills, bed mobility, and activities of daily living to a modified independent level. She was evaluated by PT, OT and ST and their plans of care were followed. She required assisted care for observation and assessment and medication administration. Fingerstick blood sugars were monitored throughout her hospital stay with appropriate adjustment in medications as needed. Electrolytes were managed by protocol. She was followed by Dr. Rodriguez from nephrology for management of dialysis. She continued with hemodialysis 3 times weekly. She had supplemental oxygen to keep sats greater than 90% and was on Rocephin. She completed 10 days of antibiotics. She was cooperative with therapies, progressing towards goals. Case management was involved for discharge planning. She was considered stable for discharge on 04/20/2019, having met 1/4 long-term goals and made progress in all other areas. She met 3/7 long-term and 5/5 short-term OT goals and met all of her ST goals. Additional therapy was recommended at discharge. DISCHARGE MEDICATIONS: As per discharge medication reconciliation. DISCHARGE DISPOSITION: The patient is discharged to the [facility]. She will continue therapies there. She will continue with dialysis at [facility] [place] on Wednesday, Wednesday, Wednesday and will follow up with nephrology in the dialysis unit. She will follow up with primary care and other specialists as directed. DISCHARGE SUMMARY REPORT [id number] THUAN TAPIA At least 30 minutes was spent in this discharge activity. TRANSINT:[id number] Voice Confirmation ID: [id number] DOCUMENT ID: [id number] Dictated By: DANIEL CHERY I have interviewed/examined the above patient and agree with these documented findings. BORIS LANDON MD at 0958 at 0955 CC: [id number] DICTATION DATE: 06/18/19 165 [employer]: 06/19/19 0122 DIS IN 04/20/19 [facility] [address] [id number]
== END 2019-04-20 11:09 | DRG 947 ==
LOC: D.REHAB 16:36
PROVIDERS: ADMIT Emergency Medicine; ATTEND Emergency Medicine
DX: R53.81 Other malaise (principal); A41.9 Sepsis, unspecified organism; N18.6 End stage renal disease; J18.9 Pneumonia, unspecified organism; I12.0 Hypertensive chronic kidney disease with stage 5 chronic kidney disease or end stage renal disease; E11.22 Type 2 diabetes mellitus with diabetic chronic kidney disease; I48.0 Paroxysmal atrial fibrillation; E78.5 Hyperlipidemia, unspecified; K21.9 Gastro-esophageal reflux disease without esophagitis; R53.1 Weakness

== ENCOUNTER 2019-05-08 17:19 | Emergency (ER) | payer MEDICARE, OTHER ==
[~2019-05-08] VITALS: Ht 152.4 cm; Wt 49.1 kg
[2019-05-08 17:21] VITALS: Ht 152.4 cm; Wt 49.1 kg
[2019-05-08 21:48] VITALS: BP 185/65
== END 2019-05-08 21:48 ==
LOC: D.ER 17:19
DX: S42.211A Unspecified displaced fracture of surgical neck of right humerus, initial encounter for closed fracture (principal); W18.30XA Fall on same level, unspecified, initial encounter; S01.81XA Laceration without foreign body of other part of head, initial encounter

== ENCOUNTER 2019-11-04 03:49 | Emergency (ER) | payer MEDICARE, OTHER ==
[~2019-11-04] VITALS: Ht 152.4 cm; Wt 59.1 kg
[2019-11-04 03:55] VITALS: Ht 152.4 cm; Wt 59.1 kg
[2019-11-04 04:32] LABS: BASOPHILS 0.7 % (0-2); EOSINOPHILS 3.5 % (0-7); HEMATOCRIT 35.1 % (36.0-48.0); HEMOGLOBIN 10.9 g/dL (12-16); IMMATURE GRANULOCYTES 0.3 % (0-5); LYMPHOCYTES 28.1 % (15-50); MCH 30.1 pg (26.0-34.0); MCHC 31.1 g/dL (31.0-37.0); MEAN PLATELET VOLUME 9.7 fL (7.4-10.4); MONOCYTES 14.4 % (2-11); RBC 3.62 10x6/uL (4.00-5.40); RDW 15.1 % (11.5-14.5); WBC 7.2 10x3/uL (4.8-10.8)
[2019-11-04 04:34] LABS: PLATELET COUNT 209 10x3/uL (130-400)
[2019-11-04 04:40] LABS: ANION GAP 12.7 mmol/L (8-16); CALCIUM 8.9 mg/dL (8.5-10.1); CARBON DIOXIDE 30.2 mmol/L (21.0-32.0); POTASSIUM - SERUM 3.9 mmol/L (3.5-5.1)
[2019-11-04 04:42] LABS: APTT 27.4 SECONDS (22.8-39.4); INR 0.99 (0.85-1.17)
[2019-11-04 04:58] LABS: ALBUMIN 3.7 g/dL (3.4-5.0); BILIRUBIN - TOTAL 0.51 mg/dL (0.2-1.3); PROTEIN - SERUM 7.4 g/dL (6.4-8.2)
[2019-11-04 08:17] VITALS: BP 131/66
== END 2019-11-04 08:17 | disposition home or self-care (01) ==
LOC: D.ER 03:49
PROVIDERS: Family Medicine
DX: T82.838A Hemorrhage due to vascular prosthetic devices, implants and grafts, initial encounter (principal); I12.0 Hypertensive chronic kidney disease with stage 5 chronic kidney disease or end stage renal disease; N18.6 End stage renal disease; E11.22 Type 2 diabetes mellitus with diabetic chronic kidney disease; Z99.2 Dependence on renal dialysis; G56.92 Unspecified mononeuropathy of left upper limb; Z86.73 Personal history of transient ischemic attack (TIA), and cerebral infarction without residual deficits; E07.9 Disorder of thyroid, unspecified; K21.9 Gastro-esophageal reflux disease without esophagitis

== ENCOUNTER → 2020-03-05 09:05 | Outpatient (CLI) | payer MEDICARE, OTHER ==
[2019-11-04 03:55] VITALS: BMI 25.4
--- NOTE | ~2020-03-05 | EC ---
PATIENT:THUAN TAPIA DATE OF SERVICE: 03/05/20 SEX: F MEDICAL RECORD: [id number] DATE OF : 34 [facility] AGE OF PATIENT: 89 ADMISSION DATE: 03/05/20 REFERRING PHYSICIAN: INTERPRETING PHYSICIAN: HAILEE LANZA MD ECHOCARDIOGRAM REPORT ECHO CHARGES 4 ECHO COMPLETE Date: 03/05/20 CLINICAL DIAGNOSIS: HX OF CARDIOMYOPATHY ECHOCARDIOGRAPHIC MEASUREMENTS (adult normal given) AC root (d.<3.7cm) 3.3 cm LV Septum d (<1.2 cm> 1.4 cm Valve Excursion 1.2 cm LV Septum (systole) 1.6 cm Left Atria (s.<4.0cm> 5.2 cm LVPW d(<1.2cm) 1.4 cm RV (d.<2.3cm) 3.1 cm LVPW (sytole) 1.6 cm LV diastole(<5.6CM) 4.7 cm MV E-F(>70mm/sec) cm LV systole 3.1 cm LVOT Diameter 1.7 cm MV exc.(>10mm) 1.6 cm Est.ejection fraction (50-75%) % DOPPLER: LVIT cm/sec A 122.0cm/sec E 132.0 cm/sec LA cm/sec RVSP 39 mmHg LVOT 99 cm/sec AOP1/2T m/s Asc. Ao 188 cm/sec RVOT 70 cm/sec RA cm/sec PA 96 cm/sec AV Gradient Peak 14.09mmHg AV Mean 6.75 mmHg AV Area 2.3 cm MV Gradient Peak 7.43 mmHg MV Mean 3.05 mmHg MV Area cm COMMENTS: Electric Welder: Marilyn [employer] Upholsterer: 2 Dr. Sinclair TAPE# PACS Pericardial Effusion N DATE OF SERVICE: Adequate 2D, color flow imaging, spectral Doppler, and M-Mode. LVH is present. LV internal dimension is normal. Wall motion is normal. EF is greater than or equal to 55%. Aortic valve is sclerotic. No evidence of stenosis by Doppler interrogation. Left atrium is dilated at 5.2 cm. Mitral valve is thickened. Mild prolapse MR. Right-sided chambers are grossly normal. Mild TR. ECHOCARDIOGRAM REPORT [id number] THUAN TAPIA No evidence of interrogation. Left atrium is dilated at 5.2 cm. Mitral valve is thickened. Mild plus MR. Right-sided chambers are grossly normal. Mild TR. TRANSINT:[id number] Voice Confirmation ID: [id number] DOCUMENT ID: [id number] HAILEE LANZA MD CC: [id number] DICTATION DATE: 03/07/20 151 CONTROL SYSTEM COMPUTER SCIENTIST: 03/07/202031 DEP CLI 03/05/20 [facility] [address] [id number]
== END | disposition home or self-care (01) ==
LOC: D.HCCECHO 09:05
PROVIDERS: ATTEND Internal Medicine Interventional Cardiology
DX: I42.9 Cardiomyopathy, unspecified (principal)